=== PATIENT | male | born 1955 | race Caucasian/White ===

== ENCOUNTER 2017-08-28 05:40 | Outpatient (CLI) | payer BC, MEDICARE ==
[~2017-08-28] VITALS: Ht 185.4 cm; Wt 98.0 kg
[2017-08-28] MEDS ORDERED: CITA20TA7 PO (09:36)
[2017-08-28] MEDS ORDERED: ONDA8TAB6 PO (09:36)
[2017-08-28] MEDS ORDERED: BUPR100T15 PO (09:36)
[2017-08-28] MEDS ORDERED: MV-M1TAB20 PO (09:36)
[2017-08-28] MEDS ORDERED: CYAN1TAB13 PO (09:36)
[2017-08-28] MEDS ORDERED: MORP15TA PO (09:36)
[2017-08-28] MEDS ORDERED: OMEP20TA7 PO (09:36)
[2017-08-28] MEDS ORDERED: CARV3.12 PO (09:36)
[2017-08-28] MEDS ORDERED: POLY119P5 PO (09:36)
[2017-08-28] MEDS ORDERED: OXC10TCR PO (09:36)
[2017-08-28] MEDS ORDERED: PROC5TAB52 PO (09:36)
[2017-08-28] MEDS ORDERED: ORPH100T PO (09:36)
== END 2017-08-28 09:41 ==
LOC: PREOP 05:40
PROVIDERS: ATTEND Surgery
DX: Z01.818 Encounter for other preprocedural examination (principal); C34.90 Malignant neoplasm of unspecified part of unspecified bronchus or lung

== ENCOUNTER 2017-08-29 09:29 | Day surgery (SDC) | payer BC, MEDICARE ==
[~2017-08-29] VITALS: Ht 185.4 cm; Wt 98.0 kg
[~2017-08-29 09:29] MED LIST: BUPR100T15 PO; CARV3.12 PO; CITA20TA7 PO; CYAN1TAB13 PO; MORP15TA PO; MV-M1TAB20 PO; OMEP20TA7 PO; ONDA8TAB6 PO; ORPH100T PO; OXC10TCR PO; POLY119P5 PO; PROC5TAB52 PO
--- OUTSIDE RECORDS SUMMARY | 2017-08-29 09:33 | XMS REPORT ---
Author Author Laura Ramsay [facility] Address [address] [place], [place] [id number] Care Team Providers Care Asp Developer Name Role Phone Laura Ramsay PCP Laura Ramsay PreferredProvider Allergies and Adverse Reactions Name Reaction Notes Tenormin Pravachol Zocor Crestor [place] 3 Plan of Treatment Not available. Medications Active Name Start Date Estimated Completion Date SIG Comments bupropion HCl 100 mg oral tablet extended release take 1 tablet (100 mg ) by oral route 2 times per day naproxen 500 mg oral tablet take 1 tablet by oral route 2 times a day prn citalopram 20 mg oral tablet take 1 tablet (20 mg) by oral route once daily Folbee 2.5-25-1 mg oral tablet take 1 tablet by oral route once daily Stool Softener 100 mg oral capsule take 2 capsules (200 mg) by oral route once daily at bedtime as needed orphenadrine citrate 100 mg oral tablet extended release take 1 tablet by oral route daily Coreg 3.125 mg oral tablet take 1 tablet by oral route 2 times a day as needed omeprazole 20 mg oral capsule,delayed release(DR/EC) take 1 capsule by oral route daily as needed gabapentin 600 mg oral tablet take 1 tablet by oral route As needed oxycodone 5 mg oral tablet 07/09/2017 07/23/2017 take 1 tablet (5 mg) by oral route every 6 hours as needed for pain Discontinued Name Start Date Discontinued Date SIG Comments orphenadrine citrate 100 mg oral tablet extended release 06/12/2017 take 1 tablet (100 mg) by oral route 2 times per day in the morning and evening aspirin 81 mg oral tablet,delayed release (DR/EC) 06/12/2017 omeprazole 40 mg oral capsule,delayed release(DR/EC) 06/12/2017 take 1 capsule (40 mg) by oral route 2 times per day before a meal carvedilol 12.5 mg oral tablet 06/12/2017 06/12/2017 take 1 tablet by oral route 2 times a day as needed gabapentin 600 mg oral tablet 06/12/2017 06/12/2017 take 1 tablet by oral route daily as needed hydrocodone-acetaminophen 5-325 mg oral tablet 07/08/2017 PRN Levaquin 500 mg oral tablet 06/27/2017 07/03/2017 take 1 tablet (500 mg) by oral route once daily for 7 days OxyContin 10 mg oral tablet,oral only,ext.rel.12 hr 07/08/2017 07/09/2017 take 1 tablet (10 mg) by oral route every 12 hours for 15 days Problem List Description Status Onset Hyperlipidemia Active Hypertension Active Major Depression (Recurrent) Active Neuropathy Active Gastroesophageal reflux disease (GERD) Active Adenofibromatous hypertrophy of prostate Active 06/29/2016 Vital Signs Date Time BP-Sys(mm[Hg] BP-Marilynn(mm[Hg]) HR(bpm) RR(rpm) Temp WT HT HC BMI BSA BMI Percentile O2 Sat(%) 07/08/2017 4:55:00 PM 120 mmHg 80 mmHg 78 bpm 18 rpm 97.8 F 223.375 lbs 72 in 30.29 kg/m2 2.27 m2 98 % 07/03/2017 8:54:00 AM 122 mmHg 72 mmHg 68 bpm 18 rpm 98.1 F 219.125 lbs 72 in 29.7184 kg/m 2.247 m 98 % 06/27/2017 10:54:00 AM 116 mmHg 70 mmHg 84 bpm 18 rpm 98.5 F 219 lbs 72 in 29.70 kg/m2 2.25 m2 98 % 06/12/2017 2:58:00 PM 116 mmHg 72 mmHg 76 bpm 18 rpm 97.8 F 220.5 lbs 72 in 29.9049 kg/m 2.2541 m 97 % 06/29/2016 8:49:00 AM 118 mmHg 78 mmHg 73 bpm 18 rpm 97 F 215 lbs 72 in 29.16 kg/m2 2.23 m2 94 % 03/21/2016 9:55:00 AM 122 mmHg 76 mmHg 68 bpm 7 rpm 98.2 F 233 lbs 72 in 31.6002 kg/m 2.3171 m 98 % 11/03/2013 10:55:00 AM 110 mmHg 78 mmHg 61 bpm 16 rpm 97.1 F 223 lbs 72 in 30.24 kg/m2 2.27 m2 97 % Social History Name Description Comments Alcohol Never Caffeine Current every day Disabled Tobacco Current every day smoker cigerettes History of Procedures Date Ordered Description Order Status 06/06/2016 12:00 AM ASSAY OF PSA TOTAL Reviewed 06/29/2016 9:38 AM URINALYSIS AUTO W/O SCOPE Reviewed 09/10/2016 12:00 AM ASSAY OF PSA TOTAL Returned 06/27/2017 12:00 AM Rocephin 1 gram Injection Reviewed 07/03/2017 12:[address] THORAX W/DYE Returned 07/03/2017 12:[address] SOFT TISSUE NECK W/DYE Returned 07/03/2017 12:00 AM COMPLETE CBC W/AUTO DIFF WBC Returned 07/03/2017 12:00 AM COMPREHEN METABOLIC PANEL Returned 07/03/2017 12:00 AM THER/PROPH/DIAG INJ SC/IM Reviewed 07/03/2017 12:00 AM Rocephin 1 gram Injection Reviewed 07/03/2017 12:00 AM COLLECTION VENOUS BLOOD VENIPUNCTURE Reviewed 07/03/2017 12:00 AM US EXAM OF HEAD AND NECK Returned 07/03/2017 12:00 AM CHEST X-RAY 2VW FRONTAL&LATL Returned 07/09/2017 12:00 AM ASSAY OF PSA TOTAL Reviewed 11/03/2013 12:00 AM DIAGNOSTIC COLONOSCOPY Reviewed Results Summary Date and Description Results 06/27/2016 2:19 PM PSA TOTAL 7.810 ng/mL 06/29/2016 9:38 AM Clarity Ur CLEAR Color Ur --- Glucose Ur-sCnc -VE Bilirub Ur Ql Strip -VE Ketones Ur Ql Strip -VE Sp Gr Ur Qn 1015 Hgb Ur Ql Strip -VE pH Ur-LsCnc 5.0 Prot Ur Ql Strip -VE Urobilinogen Ur-mCnc -VE Nitrite Ur Ql Strip - VE WBC Est Ur Ql Strip -VE History Of Immunizations Not available. History of Past Illness Name Date of Onset Comments Hyperlipidemia Cardiomyopathy Post viral Major Depression (Recurrent) Gastroesophageal reflux disease (GERD) Degenerative joint disease Osteoarthritis Neuropathy SVT Glucose Intolerance Hypertension Adenofibromatous hypertrophy of prostate 06/29/2016 Acute esophagitis Nov 03 2013 11:12AM Colon Cancer Screening Nov 03 2013 11:12AM BPH (benign prostatic hypertrophy) Jun 06 2016 7:33AM Screening for prostate cancer Jun 06 2016 7:33AM Abnormal PSA Jun 29 2016 8:52AM Adenofibromatous hypertrophy of prostate Jun 29 2016 8:52AM Adenofibromatous hypertrophy of prostate Sep 10 2016 1:54PM Screening for prostate cancer Sep 10 2016 1:54PM Lymphadenopathy Jun 27 2017 10:57AM Soft tissue mass Jun 27 2017 10:57AM Pneumonia of left lower lobe due to infectious organism Jun 27 2017 10:57AM Hyperlipidemia, Mixed Jun 12 2017 3:01PM Osteoarthritis Jun 12 2017 3:01PM Hypertension, Benign Essential Jun 12 2017 3:01PM Gastroesophageal reflux disease (GERD) Jun 12 2017 3:01PM Mild episode of recurrent major depressive disorder Jun 12 2017 3:01PM Soft tissue mass Jul 03 2017 8:55AM Lymphadenopathy of left cervical region Jul 03 2017 8:55AM Pneumonia of left lower lobe due to infectious organism Jul 03 2017 8:55AM Lung nodule Jul 03 2017 5:52PM Soft tissue mass Jul 03 2017 5:52PM Abnormal CXR Jul 03 2017 5:52PM Lymphadenopathy Jul 03 2017 5:52PM Abnormal PSA Jul 09 2017 4:35PM Lymphadenopathy of head and neck Jul 08 2017 4:56PM Mass of soft tissue Jul 08 2017 4:56PM 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 Jul 08 2017 4:56PM Payers Insurance Name Company Name Plan Name Plan Number Policy Number Policy Group Number [facility] Date [id number] N/A Medicare RHC Medicare RHC [id number] N/A Medicare Part A Medicare - Lab/Xray [id number] N/A Medicare Part B Medicare Secondary [id number] N/A History of Encounters Visit Date Visit Type Provider 07/08/2017 Office visit Laura Ramsay SKILL TRAINING PROGRAM COORDINATOR 07/03/2017 Office visit Laura Ramsay SKILL TRAINING PROGRAM COORDINATOR 06/27/2017 Office visit Laura Ramsay SKILL TRAINING PROGRAM COORDINATOR 06/12/2017 Office visit Laura Ramsay SKILL TRAINING PROGRAM COORDINATOR 02/11/2017 [facility] Bishop Nino MD 02/11/2017 [facility] Tho Thornton MD 02/10/2017 [facility] Bishop Nino MD 06/29/2016 Office visit Roberta Jones MD 04/09/2016 [facility] Roberta Jones MD 03/21/2016 Office visit Roberta Jones MD 09/18/2015 [facility] Bishop Nino MD 02/08/2015 [facility] Bishop Nino MD 11/05/2013 [facility] Sebastian Keys MD 11/03/2013 Office visit Sebastian Keys MD 10/22/2013 [facility] Bishop Nino MD 08/24/2009 Laboratory Anne Lew MD
--- OUTSIDE RECORDS SUMMARY | 2017-08-29 09:33 | XMS REPORT ---
Author Author Laura Ramsay [facility] Address [address] [place], [place] [id number] Care Team Providers Care Livestock Nutrition Territory Manager Name Role Phone Laura Ramsay PCP Laura Ramsay PreferredProvider Allergies and Adverse Reactions Name Reaction Notes Tenormin Pravachol Zocor Crestor [place] 3 Plan of Treatment Planned Activity Comments Planned Date Planned Time Plan/Goal PSA TOTAL 09/10/2016 12:00 AM PSA TOTAL 07/09/2017 12:00 AM Medications Active Name Start Date Estimated Completion [...] (DR/EC) 06/12/2017 omeprazole 40 mg oral capsule,delayed release(/EC) 06/12/2017 take 1 capsule (40 mg) by [...] 9:38 AM URINALYSIS AUTO W/O SCOPE Reviewed 06/27/2017 12:00 AM Rocephin 1 gram Injection [...] 12:00 AM CHEST X-RAY 2VW FRONTAL&LATL Returned 11/03/2013 12:00 AM DIAGNOSTIC COLONOSCOPY Reviewed Results [...] 5:52PM Abnormal PSA Jul 09 2017 4:35PM Payers Insurance Name Company Name Plan Name Plan Number Policy Number Policy Group Number [facility] Date [id number] Medicare RHC Medicare RHC [id number] N/A Medicare Part A Medicare - Lab/Xray [id number] N/A Medicare Part B Medicare Secondary [id number] N/A History of Encounters Visit Date Visit Type Provider 07/08/2017 Office visit Laura GeovanyCharles Ramsay FLAKING ROLL OPERATOR 07/03/2017 Office visit Laura ArmentaCharles Ramsay FLAKING ROLL OPERATOR 06/27/2017 Office visit Laura ArmentaCharles Ramsay FLAKING ROLL OPERATOR 06/12/2017 Office visit Laura ArmentaCharles Ramsay FLAKING ROLL OPERATOR 02/11/2017 [facility] Bishop Nino MD 02/11/2017 [facility] Tho Thornton MD 02/10/2017 [facility] Bishop Nino MD 06/29/2016 Office visit Roberta Jones MD 04/09/2016 [facility] Roberta Jones MD 03/21/2016 Office visit Roberta Jones MD 09/18/2015 [facility] Bishop Nino MD 02/08/2015 [facility] Bishop Nino MD 11/05/2013 [facility] Sebastian Keys MD 11/03/2013 Office visit Sebastian Keys MD 10/22/2013 [facility] Bishop Nino MD 08/24/2009 Laboratory Anne Lew MD
--- OUTSIDE RECORDS SUMMARY | 2017-08-29 09:33 | XMS REPORT ---
Author Author Roberta Jones Organization [facility] Address [address] [facility] [address] [place], [place] [id number] Care Team Providers Care Pm Head Cook Name Role Phone Roberta Jones PCP Unavailable Allergies and Adverse Reactions Name Reaction Notes Tenormin Pravachol Zocor Crestor [place] 3 Plan of Treatment Planned Activity Comments Planned Date Planned Time Plan/Goal PSA TOTAL 06/06/2016 12:00 AM Medications Active Name Start Date Estimated Completion Date SIG Comments carvedilol 12.5 mg oral tablet take 0.5 tablet by oral route 2 times a day orphenadrine citrate 100 mg oral tablet extended release take 1 tablet ( 100 mg) by oral route 2 times per day in the morning and evening gabapentin 600 mg oral tablet take 1 tablet by oral route daily bupropion HCl 100 mg oral tablet extended [...] route once daily at bedtime as needed aspirin 81 mg oral tablet,delayed release (DR/EC) omeprazole 40 mg oral capsule,delayed release(DR/EC) take 1 capsule (40 mg) by oral route 2 times per day before a meal Problem List Description Status Onset Hyperlipidemia Active Hypertension Active Major Depression (Recurrent) Active Neuropathy Active Gastroesophageal reflux disease (GERD) Active Vital Signs Date Time BP-Sys(mm[Hg] BP-Marilynn(mm[Hg]) HR(bpm) RR(rpm) Temp WT HT HC BMI BSA BMI Percentile O2 Sat(%) 03/21/2016 9:55:00 AM 122 mmHg 76 mmHg 68 bpm 7 rpm 98.2 F 233 lbs 72 in 31.60 kg/m2 2.32 m2 98 % 11/03/2013 10:55:00 AM 110 mmHg 78 mmHg 61 bpm 16 rpm 97.1 F 223 lbs 72 in 30.2439 kg/m 2.2668 m 97 % Social History Name Description Comments Tobacco Current every day smoker History of Procedures Date Ordered Description Order Status 11/03/2013 12:00 AM DIAGNOSTIC COLONOSCOPY Reviewed Results Summary Not available. History Of Immunizations Not available. History of Past Illness Name Date of Onset Comments Hyperlipidemia Cardiomyopathy Post viral Major Depression (Recurrent) Gastroesophageal reflux disease (GERD) Degenerative joint disease Osteoarthritis Neuropathy SVT Glucose Intolerance Hypertension Acute esophagitis Nov 03 2013 11:12AM Colon Cancer Screening Nov 03 2013 11:12AM BPH (benign prostatic hypertrophy) Jun 06 2016 7:33AM Screening for prostate cancer Jun 06 2016 7:33AM Payers Insurance Name Company Name Plan Name Plan Number Policy Number Policy Group Number [id number] Medicare Part B Medicare Secondary [id number] N/A History of Encounters Visit Date Visit Type Provider 04/09/2016 [facility] Roberta Jones MD 03/21/2016 Office visit Roberta Jones MD 09/18/2015 [facility] Bishop Nino MD 02/08/2015 [facility] Bishop Nino MD 11/05/2013 [facility] Sebastian Keys MD 11/03/2013 Office visit Sebastian Keys MD 10/22/2013 [facility] Bishop Nino MD 08/24/2009 Laboratory Anne Lew MD
--- OUTSIDE RECORDS SUMMARY | 2017-08-29 09:33 | XMS REPORT ---
Author Author Roberta Jones Organization [facility] Address [address] [place], [place] [id number] Care Team Providers Care Teletypesetter Name Role Phone Roberta Jones PCP Unavailable Allergies and Adverse Reactions Name Reaction Notes Tenormin Pravachol Zocor Crestor [place] 3 Plan of Treatment Not available. Medications [...] Order Status 11/03/2013 12:00 AM DIAGNOSTIC COLONOSCOPY Returned Results Summary Not available. History Of Immunizations Not available. History of Past Illness Name Date of Onset Comments Hyperlipidemia Cardiomyopathy Post viral Major Depression (Recurrent) Gastroesophageal reflux disease (GERD) Degenerative joint disease Osteoarthritis Neuropathy SVT Glucose Intolerance Hypertension Acute esophagitis Nov 03 2013 11:12AM Colon Cancer Screening Nov 03 2013 11:12AM Payers Insurance Name Company Name Plan Name Plan Number Policy Number Policy Group Number [facility] Date [id number] N/A Medicare Part B Medicare Secondary [id number] N/A History of Encounters Visit Date Visit Type Provider 03/21/2016 Office visit Roberta Jones MD 09/18/2015 [facility] Bishop Nino MD 02/08/2015 [facility] Bishop Nino MD 11/05/2013 [facility] Sebastian Keys MD 11/03/2013 Office visit Sebastian Keys MD 10/22/2013 [facility] Bishop Nino MD 08/24/2009 Laboratory Anne Lew MD
--- OUTSIDE RECORDS SUMMARY | 2017-08-29 09:34 | XMS REPORT ---
Author Author Laura Ramsay [facility] Address [address] [place], [place] [id number] Care Team Providers Care Title Closer Name Role Phone Laura Ramsay PCP Laura Ramsay PreferredProvider Allergies and Adverse Reactions Name Reaction Notes Tenormin Pravachol Zocor Crestor [place] 3 Plan of Treatment Planned Activity Comments Planned Date Planned Time Plan/Goal PSA TOTAL 09/10/2016 12:00 AM Medications Active Name Start Date [...] 1 tablet by oral route As needed hydrocodone-acetaminophen 5-325 mg oral tablet PRN Levaquin 500 mg oral tablet 06/27/2017 take 1 tablet (500 mg) by oral route once daily for 7 days Discontinued Name Start Date Discontinued Date SIG [...] tablet by oral route daily as needed Problem List Description Status Onset Hyperlipidemia Active Hypertension Active Major Depression (Recurrent) Active Neuropathy Active Gastroesophageal reflux disease (GERD) Active Adenofibromatous hypertrophy of prostate Active 06/29/2016 Vital Signs Date Time BP-Sys(mm[Hg] BP-Marilynn(mm[Hg]) HR(bpm) RR(rpm) Temp WT HT HC BMI BSA BMI Percentile O2 Sat(%) 06/27/2017 10:54:00 AM 116 mmHg 70 mmHg [...] 12:00 AM Rocephin 1 gram Injection Reviewed 11/03/2013 12:00 AM DIAGNOSTIC COLONOSCOPY Reviewed [...] major depressive disorder Jun 12 2017 3:01PM Payers Insurance Name Company Name Plan Name Plan Number Policy Number Policy Group Number [facility] Date [id number] N/A Medicare RHC Medicare RHC [id number] N/A Medicare Part A Medicare - Lab/Xray [id number] N/A Medicare Part B Medicare Secondary [id number] N/A History of Encounters Visit Date Visit Type Provider 06/27/2017 Office visit Laura Ramsay ASSISTANT OFFICE MANAGER 06/12/2017 Office visit Laura Ramsay ASSISTANT OFFICE MANAGER 02/11/2017 [facility] Bishop Nino MD 02/11/2017 [facility] Tho Thornton MD 02/10/2017 [facility] Bishop Nino MD 06/29/2016 Office visit Roberta Jones MD 04/09/2016 [facility] Roberta Jones MD 03/21/2016 Office visit Roberta Jones MD 09/18/2015 Hospital Bishop Nino MD 02/08/2015 [facility] Bishop Nino MD 11/05/2013 [facility] Sebastian Keys MD 11/03/2013 Office visit Sebastian Keys MD 10/22/2013 [facility] Bishop Nino MD 08/24/2009 Laboratory Anne Lew MD
--- OUTSIDE RECORDS SUMMARY | 2017-08-29 09:34 | XMS REPORT ---
Author Author Laura Ramsay [facility] Address [address] [place], [place] [id number] Care Team Providers Care Diesel Retrofit Installer Name Role Phone Laura Ramsay PCP Laura Ramsay PreferredProvider Allergies and Adverse Reactions Name Reaction Notes Tenormin Pravachol Zocor Crestor [place] 3 Plan of Treatment Planned Activity Comments Planned Date Planned Time Plan/Goal PSA TOTAL 09/10/2016 12:00 AM US SOFT TISSUES HEAD AND NECK 07/03/2017 12:[address] CHEST W/CONTRAST 07/03/2017 12:[address] NECK SOFT TISSUE W/CONTRAST 07/03/2017 12:00 AM Medications Active Name Start Date [...] needed hydrocodone-acetaminophen 5-325 mg oral tablet PRN Discontinued Name Start Date Discontinued Date SIG [...] tablet by oral route daily as needed Levaquin 500 mg oral tablet 06/27/2017 07/03/2017 take 1 tablet (500 mg) by oral route once daily for 7 days Problem List Description Status Onset Hyperlipidemia Active Hypertension Active Major Depression (Recurrent) Active Neuropathy Active Gastroesophageal reflux disease (GERD) Active Adenofibromatous hypertrophy of prostate Active 06/29/2016 Vital Signs Date Time BP-Sys(mm[Hg] BP-Marilynn(mm[Hg]) HR(bpm) RR(rpm) Temp WT HT HC BMI BSA BMI Percentile O2 Sat(%) 07/03/2017 8:54:00 AM 122 mmHg 72 mmHg 68 bpm 18 rpm 98.1 F 219.125 lbs 72 in 29.72 kg/m2 2.25 m2 98 % 06/27/2017 10:54:00 AM 116 mmHg 70 mmHg 84 bpm 18 rpm 98.5 F 219 lbs 72 in 29.7014 kg/m 2.2464 m 98 % 06/12/2017 2:58:00 PM 116 mmHg 72 mmHg 76 bpm 18 rpm 97.8 F 220.5 lbs 72 in 29.90 kg/m2 2.25 m2 97 % 06/29/2016 8:49:00 AM 118 mmHg 78 mmHg 73 bpm 18 rpm 97 F 215 lbs 72 in 29.1589 kg/m 2.2258 m 94 % 03/21/2016 9:55:00 AM 122 mmHg [...] 1 gram Injection Reviewed 07/03/2017 12:00 AM COMPLETE CBC W/AUTO DIFF WBC Returned 07/03/2017 12:00 AM COMPREHEN METABOLIC PANEL Returned 07/03/2017 12:00 AM THER/PROPH/DIAG INJ SC/IM Reviewed 07/03/2017 12:00 AM Rocephin 1 gram Injection Reviewed 07/03/2017 12:00 AM COLLECTION VENOUS BLOOD VENIPUNCTURE Reviewed 07/03/2017 12:00 AM CHEST X-RAY 2VW FRONTAL&LATL [...] 2017 5:52PM Lymphadenopathy Jul 03 2017 5:52PM Payers Insurance Name Company Name Plan Name Plan Number Policy Number Policy Group Number Start Date BCBS [facility] [id number] N/A Medicare RHC Medicare RHC [id number] N/A Medicare Part A Medicare - Lab/Xray [id number] N/A Medicare Part B Medicare Secondary [id number] N/A History of Encounters Visit Date Visit Type Provider 07/03/2017 Office visit Laura Ramsay SPA COORDINATOR 06/27/2017 Office visit Laura Ramsay SPA COORDINATOR 06/12/2017 Office visit Laura Ramsay SPA COORDINATOR 02/11/2017 [facility] Bishop Nino MD 02/11/2017 [facility] Tho Thornton MD 02/10/2017 [facility] Bishop Nino MD 06/29/2016 Office visit Roberta Jones MD 04/09/2016 [facility] Roberta Jones MD 03/21/2016 Office visit Roberta Jones MD 09/18/2015 [facility] Bishop Nino MD 02/08/2015 [facility] Bishop Nino MD 11/05/2013 [facility] Sebastian Keys MD 11/03/2013 Office visit Sebastian Keys MD 10/22/2013 [facility] Bishop Nino MD 08/24/2009 Laboratory Anne Lew MD
--- OUTSIDE RECORDS SUMMARY | 2017-08-29 09:34 | XMS REPORT ---
Author Author Roberta Jones Organization [facility] Address [address] [place], [place] [phone] Care Team Providers Care Pad Making Machine Operator Name Role Phone Roberta Jones PCP Unavailable Allergies and Adverse Reactions Name Reaction Notes Tenormin Pravachol Zocor Crestor [place] 3 Plan of Treatment Not available. Medications [...] HC BMI BSA BMI Percentile O2 Sat(%) 06/29/2016 8:49:00 AM 118 mmHg 78 mmHg [...] 9:38 AM URINALYSIS AUTO W/O SCOPE Reviewed 11/03/2013 12:00 AM DIAGNOSTIC COLONOSCOPY Reviewed Results Summary Data and Description Results 06/27/2016 2:19 PM PSA [...] hypertrophy of prostate Jun 29 2016 8:52AM Payers Insurance Name Company Name Plan Name Plan Number Policy Number Policy Group Number [facility] Date [id number] N/A Medicare Part B Medicare Secondary [id number] N/A History of Encounters Visit Date Visit Type Provider 06/29/2016 Office visit Roberta Jones MD 04/09/2016 [facility] Roberta Jones MD 03/21/2016 Office visit Roberta Jones MD 09/18/2015 [facility] Bishop Nino MD 02/08/2015 [facility] Bishop Nino MD 11/05/2013 [facility] [place] MD 11/03/2013 Office visit Sebastian Keys MD 10/22/2013 [facility] Bishop Nino MD 08/24/2009 Laboratory Anne Lew MD
--- OUTSIDE RECORDS SUMMARY | 2017-08-29 09:35 | XMS REPORT ---
Author Author Laura Ramsay [facility] Address [address] [place], [place] [address] Care Team Providers Care Consumer Sales Representative Name Role Phone Laura Ramsay PCP Laura Ramsay PreferredProvider Allergies and Adverse Reactions Name Reaction Notes Tenormin Pravachol Zocor Crestor [place] 3 Plan of Treatment Planned Activity Comments [...] to infectious organism Jun 27 2017 10:57AM Payers Insurance Name Company Name Plan Name Plan Number Policy Number Policy Group Number [facility] Date [id number] Medicare RHC Medicare RHC [id number] N/A Medicare Part A Medicare - Lab/Xray [id number] N/A Medicare Part B Medicare Secondary [id number] N/A History of Encounters Visit Date Visit Type Provider 06/27/2017 Office visit Laura Ramsay PROPAGATION MANAGER 06/12/2017 Office visit Laura Ramsay PROPAGATION MANAGER 02/11/2017 [facility] Bishop Nino MD 02/11/2017 [facility] Tho Thornton MD 02/10/2017 [facility] Bishop Nino MD 06/29/2016 Office visit Roberta Jones MD 04/09/2016 [facility] Roberta Jones MD 03/21/2016 Office visit Roberta Jones MD 09/18/2015 [facility] Bishop Nino MD 02/08/2015 [facility] Bishop Nino MD 11/05/2013 [facility] Sebastian Keys MD 11/03/2013 Office visit Sebastian Keys MD 10/22/2013 [facility] Nino MD 08/24/2009 Laboratory Anne Lew MD
--- OUTSIDE RECORDS SUMMARY | 2017-08-29 09:35 | XMS REPORT ---
Author Author Laura Ramsay [facility] Address [address] [place], [place] [address] Care Team Providers Care E Commerce Retailer Name Role Phone Laura Ramsay PCP Laura Ramsay PreferredProvider Allergies and Adverse Reactions Name Reaction Notes Tenormin Pravachol Zocor Crestor [place] 3 Plan of Treatment Planned Activity Comments Planned Date Planned Time Plan/Goal PSA TOTAL 09/10/2016 12:[address] CHEST W/CONTRAST 07/03/2017 12:00 [...] Policy Group Number Start Date BCBS Bcbs [facility] [id number] N/A Medicare RHC Medicare RHC [id number] N/A Medicare Part A Medicare - Lab/Xray [id number] N/A Medicare Part B Medicare Secondary [id number] N/A History of Encounters Visit Date Visit Type Provider 07/03/2017 Office visit Laura Ramsay DETECTIVE AUTOMOBILE SECTION 06/27/2017 Office visit Laura Ramsay DETECTIVE AUTOMOBILE SECTION 06/12/2017 Office visit Laura Ramsay DETECTIVE AUTOMOBILE SECTION 02/11/2017 [facility] Bishop Nino MD 02/11/2017 [facility] Tho Thornton MD 02/10/2017 [facility] Bishop Nino MD 06/29/2016 Office visit Roberta Jones MD 04/09/2016 [facility] Roberta Jones MD 03/21/2016 Office visit Roberta Jones MD 09/18/2015 [facility] Bishop Nino MD 02/08/2015 [facility] Bishop Nino MD 11/05/2013 [facility] Sebastian Kyes MD 11/03/2013 Office visit Sebastian Keys MD 10/22/2013 [facility] Bishop Nino MD 08/24/2009 Laboratory Anne Lew MD
--- OUTSIDE RECORDS SUMMARY | 2017-08-29 09:35 | XMS REPORT | CCD ---
Author Author JOE GREY Unknown Address [address] [place] [address] Care Team Providers Care Instructional Technology Teacher Name Role Phone Roberta BURNETT MD Attphys Allergies Allergy Code Allergy Type Reaction Status CRESTOR 585369 Drug allergy FLU LIKE SYMPTOMS Active OMEGA 3 4301 Drug allergy FLU LIKE SYMPTOMS Active ZOCOR 244373 Drug allergy FLU LIKE SYMPTOMS Active TENORMIN 476260 Drug allergy FLU LIKE SYMPTOMS Active PRAVACHOL 687549 Drug allergy FLU LIKE SYMPTOMS Active Active Medications Medication Code Dose Units Frequency Route Modification Start Date/Time Aspirin 81MG Oral Tablet 695319 81 MILLIGRAMS DAILY ORAL 10/22/2013 12:49 Prescription Detail 81 MILLIGRAMS ORAL DAILY Baclofen 20MG Oral Tablet 923672 20 MILLIGRAMS FOUR TIMES A DAY NEEDED ORAL 10/22/2013 12:49 Prescription Detail 20 MILLIGRAMS ORAL FOUR TIMES A DAY NEEDED Celexa 20MG Oral Tablet 534598 20 MILLIGRAMS DAILY ORAL 10/22/2013 12:49 Prescription Detail 20 MILLIGRAMS ORAL DAILY DULCOLAX 0 1 TABLET TWO TIMES A DAY ORAL 10/22/2013 12:49 Prescription Detail 1 TABLET ORAL TWO TIMES A DAY Folbee 1MG-2.5MG-25MG Oral Tablet 974003 1 EACH DAILY ORAL 10/22/2013 12:49 Prescription Detail 1 EACH ORAL DAILY Naproxen 500MG Oral Tablet 755306 500 MILLIGRAMS TWICE DAILY NEEDED ORAL 10/22/2013 12:49 Prescription Detail 500 MILLIGRAMS ORAL TWICE DAILY NEEDED Nitrostat 0.4MG Sublingual Tablet 217340 0.4 MILLIGRAMS EVERY 5 MINUTES PRN CHEST PAIN SUBLINGUAL 2013 12:49 Prescription Detail 0.4 MILLIGRAMS SUBLINGUAL EVERY 5 MINUTES PRN CHEST PAIN Orphenadrine Citrate 100MG Oral Tablet 137861 100 MILLIGRAMS TWO TIMES A DAY NEEDED ORAL 2013 12:49 Prescription Detail 100 MILLIGRAMS ORAL TWO TIMES A DAY NEEDED STOOL SOFTNER 0 1 TABLET DAILY ORAL 10/22/2013 12:49 Prescription Detail 1 TABLET ORAL DAILY Wellbutrin 100MG Oral Tablet 145801 100 MILLIGRAMS TWO TIMES A DAY ORAL 10/22/2013 12:49 Prescription Detail 100 MILLIGRAMS ORAL TWO TIMES A DAY L-Lysine 500MG Oral Tablet 347600 2 TABLET NEEDED DAILY ORAL 10/22/2013 12:48 Prescription Detail 2 TABLET ORAL NEEDED DAILY Problems Problem Code Start Date Resolved Date Status CHEST PAIN, RULE OUT ACUTE MYOCARDIAL INFARCTION 47906 Active Procedures Procedure Code Procedure Type Date Cystourethroscopy (separate procedure) 68465 CPT 2015 Results Unknown or Not Available. Function Status Unknown or Not Available. History of Immunizations Unknown or Not Available. Plan of Treatment Unknown or Not Available. Social History Smoking Status Code Start Date End Date Current every day smoker [id number] Vital Signs Unknown or Not Available. Function Status Unknown or Not Available. Goals Unknown or Not Available. ASSESSMENTS Unknown or Not Available. Health Concerns Section Unknown or Not Available.
--- OUTSIDE RECORDS SUMMARY | 2017-08-29 09:35 | XMS REPORT ---
Author Author Roberta Jones Organization [facility] Address [address] [place], [place] [address] Care Team Providers Care Core Layer Machine Operator Name Role Phone Roberta Jones PCP Unavailable Allergies and Adverse Reactions Name Reaction Notes Tenormin Pravachol Zocor Crestor [place] 3 Plan of Treatment Planned Activity Comments [...] for prostate cancer Sep 10 2016 1:54PM Payers Insurance Name Company Name Plan Name Plan Number Policy Number Policy Group Number [id number] N/A Medicare Part B Medicare Secondary [id number] N/A History of Encounters Visit Date Visit Type Provider 06/29/2016 Office visit Roberta Jones MD 04/09/2016 Hospital Roberta Jones MD 03/21/2016 Office visit Roberta Jones MD 09/18/2015 [facility] Bishop Nino MD 02/08/2015 [facility] Bishop Nino MD 11/05/2013 [facility] Sebastian Keys MD 11/03/2013 Office visit Sebastian Keys MD 10/22/2013 [facility] Bishop Nino MD 08/24/2009 Laboratory Anne Lew MD
[2017-08-29] MEDS: LACTATED RINGERS 1,000 ML IV PRN ×2 (09:50→12:20)
[2017-08-29] MEDS ORDERED: ceFAZolin 2 GM IV Premixed 50 ML IV ONE (10:00)
[2017-08-29 10:04] VITALS: BP 131/81
[2017-08-29] MEDS ORDERED: ceFAZolin 2 GM IV Premixed 50 ML ONE (10:20)
[2017-08-29] MEDS ORDERED: FAMOTIDINE 20MG/2ML IV (PEPCID) IV ONE (10:30)
[2017-08-29] MEDS ORDERED: CATHETER FLUSH 10 ML SYR IV PRN (10:30)
--- NOTE | 2017-08-29 10:59 | Progress Note-Pre Operative ---
Pre-Operative Progress Note H&P Reviewed The H&P was reviewed, patient examined and no changes noted. 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
[2017-08-29] MEDS ORDERED: proPOfol 200 MG/20 ML (DIPRIVAN) VIAL IV ONE ×2 (11:07→12:17)
[2017-08-29] MEDS ORDERED: LIDOCAINE PF 2% 5 ML (XYLOCAINE) VIAL ONE (11:07)
[2017-08-29] MEDS ORDERED: MIDAZOLAM 2 MG/2 ML (VERSED) VIAL ONE ×2 (11:08→11:46)
[2017-08-29] MEDS ORDERED: BUPIVACAINE 0.5% 30 ML (SENSORCAINE) VIAL ONE (11:17)
[2017-08-29] MEDS ORDERED: LIDOCAINE 1% INJ 20 ML (XYLOCAINE) VIAL ONE (11:18)
[2017-08-29] MEDS ORDERED: 0.9% SODIUM CHLORIDE PF INJ 20 ML VIAL ONE (11:19)
[2017-08-29] MEDS ORDERED: HEParin (CENTRAL IV FLUSH) 500 UNIT/5 ML SYR ONE (11:19)
[2017-08-29] MEDS ORDERED: fentaNYL INJECTION 100 MCG/2 ML AMP ONE (12:03)
[2017-08-29] MEDS ORDERED: morphine INJ 10 MG/ML 1ML (SYR OR VIAL) IVP PRN (12:45)
--- NOTE | 2017-08-29 12:57 | Progress Note-Post Operative ---
Post-Operative Progess Note Surgeon (s)/Food Preparer (s) Surgeon VIVI GALE DO Food Preparer: na Pre-Operative Diagnosis squamous cell carcinoma left lung Post-Operative Diagnosis same Procedure & Operative Findings Date of Procedure 08/29/17 Procedure Performed/Findings right ij ultrasound guided port placement Anesthesia Type mac c local Estimated Blood Loss Estimated blood loss (mL): minimal Specimens/Packing Specimens Removed na VIVI GALE DO Aug 29, 2017 12:57
--- NOTE | 2017-08-29 12:59 | Discharge Inst-Simple/Standard ---
Discharge Inst-Standard Patient Instructions/Follow Up Plan of Care/Instructions/FU: 2 weeks Nicolasa Activity as Tolerated: No Discharge Diet: Regular Diet Other Inst to Patient Follow up Appt: Make appointment for 2 week. Instructions: No lifting greater than 10 pounds. No strenuous activity. May shower in 24 hours, no tub bath or soaking. Use incentive spirometer at home as directed. No Smoking Skin/Wound Care: May remove bandages in 24 hours. You need to leave the glue on it will fall off on its own. Symptoms to Report: Appetite Changes, Extremity Discoloration, Numbness/Tingling, Swelling Increased , Bleeding Excessive, Eyesight Changes, Pain Increased, Urine Color Change, Constipation(Persistent), Fever over 101 degree F, Pain/Pressure in chest, Urinating Difficulty, Cough Up/Vomit Blood, Heart Beat Irreg/Pounding, Pain/ Pressure in jaw, Vaginal Bleeding Increase, Cramps in feet or legs, Lightheadedness, Pain/Pressure in shoulder, Diarrhea(Persistent), Memory Changes Suddenly, Questions/Concerns, Weight gain consecutive days, Dizziness/ Fainting, Nausea/Vomiting, Shortness of Breath, Weight gain over 2 pounds If questions or concerns contact your physician Or seek help at emergency department. VIVI GALE DO Aug 29, 2017 12:59
[2017-08-29 13:00] VITALS: BP 118/81
[2017-08-29 13:30] VITALS: BP 129/86
--- NOTE | 2017-08-29 13:40 | Diagnostic Imaging Report ---
CLINICAL INDICATION: Postop Groshong placement. EXAM: Portable chest x-ray, upright view. COMPARISON: None. FINDINGS: A Groshong catheter tip is seen in the distal superior vena cava region in good position. There is no evidence of pneumothorax. There is mild patchy airspace disease involving the left mid lung field, left lung base, and right lung base which may represent atelectasis or infiltrate. There is no pleural effusion. Pulmonary vasculature and cardiac silhouette are within normal limits. Bones show no significant abnormality. IMPRESSION: 1: Groshong catheter seen overlying the right chest with tip in the distal superior vena cava. There is no pneumothorax. 2: There is bibasilar atelectasis versus infiltrate (left side more than the right). Dictated by: Dictated on workstation # [id number]
--- NOTE | 2017-08-29 13:55 | Anesthesia-General Post-Op ---
MAC Patient Condition Mental Status/LOC: Same as Preop Cardiovascular: Satisfactory Nausea/Vomiting: Absent Respiratory: Satisfactory Pain: Controlled Complications: Absent Post Op Complications Complications None Follow Up Care/Instructions Patient Instructions None needed. Anesthesiology Discharge Order Discharge Order Patient is doing well, no complaints, stable vital signs, no apparent adverse anesthesia problems. No complications reported per nursing. LISA JUDD CRNA Aug 29, 2017 13:55
[2017-08-29 14:05] VITALS: BP 129/86
--- NOTE | 2017-08-29 15:23 | OPERATIVE REPORT ---
DATE OF SERVICE: 08/29/2017 PREOPERATIVE DIAGNOSIS: Squamous cell carcinoma of the left lung. POSTOPERATIVE DIAGNOSIS: Squamous cell carcinoma of the left lung. PROCEDURE: Right internal jugular vein ultrasound-guided port placement. SURGEON: Vivi Baldwin DO ANESTHESIA: MAC with local. ESTIMATED BLOOD LOSS: Minimal. COMPLICATIONS: None. INDICATIONS: The patient is a 62-year-old male with squamous cell carcinoma of the left lung. He is going to undergo chemotherapy. He understands risks and benefits of procedure and wished to proceed with procedure. Consent was signed in the chart. DESCRIPTION OF PROCEDURE: The patient was taken to the operating suite. He was prepped and draped in sterile fashion. Surgical pause was performed which was used to locate the right internal jugular vein. A micro access needle was used to access the right internal jugular vein and micro access wire was inserted and fluoroscopy assured proper placement. The needle was removed. An 11 blade scalpel was used to make a small incision at the insertion site. A dilated micro access dilator sheath was advanced over the wire and the dilator and wire were removed. The normal access wire was inserted through the sheath and the sheath was then removed. This was then secured and fluoroscopy assured proper placement. A pocket was then created over the right chest after local anesthetic was infiltrated into the right chest and right neck for tunneling purposes. Once the pocket was created, the dilator sheath was then advanced over the guidewire. The dilator and the wire were removed. The Groshong catheter was inserted through the sheath and the sheath was then removed. The catheter was then tunneled from the insertion point down to the right chest pocket that was created. It was then secured to the port and placed within the chest pocket. The port was then accessed, kamar without difficulty and flushed without difficulty, first with saline and then with heparin. Subcutaneous tissues were then reapproximated using 3-0 Vicryl. The area was then washed and dried and SwiftSet was placed over the incisions. The patient tolerated procedure well without complications and taken to recovery room in stable condition. Chest x-ray pending. Job ID: [id number] DocumentID: [id number] Dictated Date: 08/29/2017 13:42:55 Thermal Cutter Hand Date: 08/29/2017 15:06:14 Dictated By: VIVI BALDWIN DO
--- NOTE | 2017-08-29 17:14 | Diagnostic Imaging Report ---
CLINICAL INDICATION: Patient post power port insertion. EXAM: Single limited intraprocedural x-ray of the chest. COMPARISON: None. FINDINGS AND IMPRESSION: Power port is seen overlying the right chest region with its distal portion not well delineated on this limited exam. Please see surgeon's report for more detail. Fluoroscopy was provided for surgeons and a total of 26.7 seconds and 499.43 mrad was provided. Dictated by: Dictated on workstation # [id number]
== END 2017-08-29 14:05 | disposition home or self-care (01) ==
LOC: SDC 09:29
PROVIDERS: ATTEND Surgery
DX: C34.12 Malignant neoplasm of upper lobe, left bronchus or lung (principal); I42.9 Cardiomyopathy, unspecified; K21.9 Gastro-esophageal reflux disease without esophagitis; Z79.899 Other long term (current) drug therapy; Z87.891 Personal history of nicotine dependence
CPT/HCPCS: 71045; 87081

== ENCOUNTER 2017-09-09 14:47 | Observation (INO) | payer BC, MEDICARE ==
[~2017-09-09] VITALS: Ht 182.9 cm; Wt 96.6 kg
[2017-09-09 21:05] VITALS: BP 129/77
--- OUTSIDE RECORDS SUMMARY | 2017-09-09 21:25 | XMS REPORT ---
Author Author Laura Ramsay [facility] Address [address] [place], [place] [address] Care Team Providers Care Stock Replenisher Name Role Phone Laura Ramsay PCP Laura Ramsay PreferredProvider Allergies and Adverse Reactions Name Reaction Notes Tenormin Pravachol Zocor Crestor [place] 3 Plan of Treatment Planned Activity Comments Planned Date Planned Time Plan/Goal BMP 09/09/2017 12:00 AM CBC W/ AUTO DIFF (RFLX MAN DIFF IF IND). 09/09/2017 12:00 AM Port-a-cath Flush 09/09/2017 12:00 AM Medications Active Name Start Date [...] (20 mg) by oral route once daily Stool Softener [...] 1 tablet by oral route As needed Folbee 2.5-25-1 mg oral tablet 08/19/2017 take 1 tablet by oral route once daily for 90 days Name Start Date Expiration Date SIG Comments oxycodone 5 mg oral tablet 07/09/2017 07/23/2017 [...] Reviewed 07/03/2017 12:[address] THORAX W/DYE Reviewed 07/03/2017 12:[address] SOFT TISSUE NECK W/DYE Reviewed 07/03/2017 12:00 AM COMPLETE CBC W/AUTO DIFF WBC Reviewed 07/03/2017 12:00 AM COMPREHEN METABOLIC PANEL Reviewed 07/03/2017 12:00 AM THER/PROPH/DIAG INJ SC/IM Reviewed 07/03/2017 12:00 AM Rocephin 1 gram Injection Reviewed 07/03/2017 12:00 AM COLLECTION VENOUS BLOOD VENIPUNCTURE Reviewed 07/03/2017 12:00 AM US EXAM OF HEAD AND NECK Reviewed 07/03/2017 12:00 AM CHEST X-RAY 2VW FRONTAL&LATL Reviewed 07/09/2017 12:00 AM ASSAY OF PSA TOTAL Reviewed 09/09/2017 12:00 AM ROUTINE VENIPUNCTURE Reviewed 11/03/2013 12:00 AM DIAGNOSTIC COLONOSCOPY Reviewed [...] VE WBC Est Ur Ql Strip -VE 07/03/2017 9:04 AM GLUCOSE 98.0 mg/dLSODIUM 138.0 mmol/LPOTASSIUM 4.40 mmol/ LCHLORIDE 105.0 mmol/LCO2 26.0 mmol/LBUN 17.0 mg/dLCREATININE 0.90 mg/dLSGOT/ AST 24.0 IU/LSGPT/ALT 24.0 IU/LALK PHOS 81.0 IU/LTOTAL PROTEIN 6.70 g/dLALBUMIN 4.10 g/dLTOTAL BILI 0.50 mg/dLCALCIUM 9.20 mg/dLAGE 62 GFR NonAA 86 GFR AA 104 eGFR >60 mL/min/1.73meGFR AA* >60 WBC 8.2 RBC 5.41 HGB 16.90 g/dLHCT 50.10 % MCV 93.0 fLMCH 31.20 pgMCHC 33.70 g/dLRDW SD 46 RDW CV 13.50 %MPV 8.80 fLPLT 247 NRBC# 0.00 NRBC% 0.0 %NEUT 66.30 %%LYMP 23.10 %%MONO 8.50 %%EOS 1.50 %%BASO 0.40 %#NEUT 5.41 #LYMP 1.88 #MONO 0.69 #EOS 0.12 #BASO 0.03 MANUAL DIFF NOT IND History Of Immunizations Not available. History of [...] metastatic to mediastinum Jul 08 2017 4:56PM Adenocarcinoma of bronchus, unspecified laterality Sep 09 2017 9:13AM Payers Insurance Name Company Name Plan Name Plan Number Policy Number Policy Group Number Start Date [facility]BS [facility]bs [id number] N/A Medicare RHC Medicare RHC [id number] N/A Medicare Part A Medicare - Lab/Xray [id number] N/A Medicare Part B Medicare Secondary [id number] N/A History of Encounters Visit Date Visit Type Provider 09/09/2017 Laboratory Laura Ramsay PRECAST CONCRETE IRONWORKER 07/08/2017 Office visit Laura Ramsay PRECAST CONCRETE IRONWORKER 07/03/2017 Office visit Laura Ramsay PRECAST CONCRETE IRONWORKER 06/27/2017 Office visit Laura Ramsay PRECAST CONCRETE IRONWORKER 06/12/2017 Office visit Laura Ramsay PRECAST CONCRETE IRONWORKER 02/11/2017 [facility] Bishop Nino MD 02/11/2017 [facility] Tho Thornton MD 02/10/2017 [facility] Bishop Nino MD 06/29/2016 Office visit Roberta Jones MD 04/09/2016 Hospital Roberta Jones MD 03/21/2016 Office visit Roberta Jones MD 09/18/2015 Hospital Bishop Nino MD 02/08/2015 Hospital Bishop Nino MD 11/05/2013 [facility] Sebastian Keys MD 11/03/2013 Office visit Sebastian Keys MD 10/22/2013 [facility] Bishop Nino MD 08/24/2009 Laboratory Anne Lew MD
--- OUTSIDE RECORDS SUMMARY | 2017-09-09 21:26 | XMS REPORT ---
Author Author Laura Ramsay [facility] Address [address] [place], [place] [id number] Care Team Providers Care Bsa Officer Name Role Phone Laura Ramsay PCP Laura Ramsay PreferredProvider Allergies and Adverse Reactions Name Reaction Notes Tenormin Pravachol Zocor Crestor [place] 3 Plan of Treatment Planned Activity Comments Planned Date Planned Time Plan/Goal BMP 09/09/2017 12:00 AM CBC W/ AUTO DIFF (RFLX MAN DIFF IF IND). 09/09/2017 12:00 AM Medications Active Name Start [...] Group Number Start Date BCBS Bcbs [facility] [id number] N/A Medicare RHC Medicare RHC [id number] N/A Medicare Part A Medicare - Lab/Xray [id number] N/A Medicare Part B Medicare Secondary [id number] N/A History of Encounters Visit Date Visit Type Provider 09/09/2017 Laboratory Laura Ramsay PLUMBING TECHNICIAN 07/08/2017 Office visit Laura Ramsay PLUMBING TECHNICIAN 07/03/2017 Office visit Laura Ramsay PLUMBING TECHNICIAN 06/27/2017 Office visit Laura Ramsay PLUMBING TECHNICIAN 06/12/2017 Office visit Laura Ramsay PLUMBING TECHNICIAN 02/11/2017 [facility] Bishop Nino MD 02/11/2017 [facility] Tho Thornton MD 02/10/2017 [facility] Bishop Nino MD 06/29/2016 Office visit Roberta Jones MD 04/09/2016 [facility] Roberta Jones MD 03/21/2016 Office visit Roberta Jones MD 09/18/2015 [facility] Bishop Nino MD 02/08/2015 [facility] Bishop Nino MD 11/05/2013 [facility] Sebastian Keys MD 11/03/2013 Office visit Sebastian Keys MD 10/22/2013 [facility] Bishop Nino MD 08/24/2009 Laboratory Anne Lew MD
--- OUTSIDE RECORDS SUMMARY | 2017-09-09 21:28 | XMS REPORT ---
Author Author Laura Ramsay [facility] Address [address] [place], [place] [address] Care Team Providers Care Purse Maker Name Role Phone Laura Ramsay PCP Laura Ramsay PreferredProvider Allergies and Adverse Reactions Name Reaction Notes Tenormin Pravachol Zocor Crestor [place] 3 Plan of Treatment Planned Activity Comments [...] Policy Group Number Start Date BCBS [facility]cbs [id number] N/A Medicare RHC Medicare RHC [id number] N/A Medicare Part A Medicare - Lab/Xray [id number] N/A Medicare Part B Medicare Secondary [id number] N/A History of Encounters Visit Date Visit Type Provider 09/09/2017 Laboratory Laura Ramsay DESIZING MACHINE OPERATOR HEAD END 07/08/2017 Office visit Laura Ramsay DESIZING MACHINE OPERATOR HEAD END 07/03/2017 Office visit Laura Ramsay DESIZING MACHINE OPERATOR HEAD END 06/27/2017 Office visit Laura Ramsay DESIZING MACHINE OPERATOR HEAD END 06/12/2017 Office visit Laura Ramsay DESIZING MACHINE OPERATOR HEAD END 02/11/2017 [facility] Bishop Nino MD 02/11/2017 [facility] Tho Thornton MD 02/10/2017 [facility] Bishop Nino MD 06/29/2016 Office visit Roberta Jones MD 04/09/2016 Hospital Roberta Jones MD 03/21/2016 Office visit Roberta Jones MD 09/18/2015 Hospital Bishop Nino MD 02/08/2015 Hospital Bishop Nino MD 11/05/2013 [facility] Sebastian Keys MD 11/03/2013 Office visit Sebastian Keys MD 10/22/2013 [facility] Bishop Nino MD 08/24/2009 Laboratory Anne Lew MD
--- OUTSIDE RECORDS SUMMARY | 2017-09-09 21:28 | XMS REPORT ---
Author Author Laura Ramsay [facility] Address [address] [place], [place] [address] Care Team Providers Care Propulsion Engineer Name Role Phone Laura Ramsay PCP Laura Ramsay PreferredProvider Allergies and Adverse Reactions Name Reaction Notes Tenormin Pravachol Zocor Crestor [place] 3 Plan of Treatment Not available. Medications [...] HC BMI BSA BMI Percentile O2 Sat(%) 09/09/2017 4:31:00 PM 132 mmHg 70 mmHg 88 bpm 18 rpm 98.2 F 218.5 lbs 72 in 29.63 kg/m2 2.24 m2 90 % 07/08/2017 4:55:00 PM 120 mmHg 80 mmHg 78 bpm 18 rpm 97.8 F 223.375 lbs 72 in 30.2948 kg/m 2.2687 m 98 % 07/03/2017 8:54:00 AM 122 mmHg [...] Reviewed 09/09/2017 12:00 AM ROUTINE VENIPUNCTURE Reviewed 09/09/2017 12:00 AM METABOLIC PANEL TOTAL CA Returned 09/09/2017 12:00 AM COMPLETE CBC W/AUTO DIFF WBC Returned 09/09/2017 12:00 AM IRRIGAJ IMPLNTD VENOUS ACCESS DRUG DELIVERY SYST Reviewed 11/03/2013 12:00 AM DIAGNOSTIC COLONOSCOPY Reviewed [...] bronchus, unspecified laterality Sep 09 2017 9:13AM Dyspnea Sep 09 2017 4:33PM Chest pain Sep 09 2017 4:33PM Carcinoma, lung, right Sep 09 2017 4:33PM Payers Insurance Name Company Name Plan Name Plan Number Policy Number Policy Group Number Start Date [id number] N/A Medicare RHC Medicare RHC [id number] N/A Medicare Part A Medicare - Lab/Xray [id number] N/A Medicare Part B Medicare Secondary [id number] N/A History of Encounters Visit Date Visit Type Provider 09/09/2017 Office visit Laura ArmentaCharles Ramsay HARBOR PATROL POLICE 09/09/2017 Laboratory Laura ArmentaCharles Ramsay HARBOR PATROL POLICE 07/08/2017 Office visit Laura ArmentaCharles Ramsay HARBOR PATROL POLICE 07/03/2017 Office visit Laura ArmentaCharles Ramsay HARBOR PATROL POLICE 06/27/2017 Office visit Laura Guerda Ramsay HARBOR PATROL POLICE 06/12/2017 Office visit Laura Guerda Ramsay HARBOR PATROL POLICE 02/11/2017 [facility] Bishop Nino MD 02/11/2017 [facility] Tho Thornton MD 02/10/2017 [facility] Bishop Nino MD 06/29/2016 Office visit Roberta Jones MD 04/09/2016 [facility] Roberta Jones MD 03/21/2016 Office visit Roberta Jones MD 09/18/2015 [facility] Bishop Nino MD 02/08/2015 [facility] Bishop Nino MD 11/05/2013 [facility] Sebastian Keys MD 11/03/2013 Office visit Sebastian Keys MD 10/22/2013 [facility] Bishop Nino MD 08/24/2009 Laboratory Anne Lew MD
--- OUTSIDE RECORDS SUMMARY | 2017-09-09 21:29 | XMS REPORT | Continuity of Care Document ---
Author Author [facility] Organization [facility] Address Unknown Phone Unavailable Allergies Active Description Code Type Severity Reaction Onset Reported/Identified Relationship to Patient Clinical Status Yes CRESTOR [id number] BRANDNAME N/A FLU LIKE SYMPTOMS Yes CRESTOR [id number] BRANDNAME N/A NIGHT RHOADES Yes NKDA - NO KNOWN DRUG ALLERGIES [id number] CLASS N/A N/A Yes OMEGA 3 [id number] BRANDNAME N/A FLU LIKE SYMPTOMS Yes OMEGA-3 FATTY ACIDS [id number] DRUG N/A N/A Yes PRAVACHOL [id number] BRANDNAME N/ A FLU LIKE SYMPTOMS Yes PRAVACHOL [id number] BRANDNAME N/ A NIGHTMARES Yes TENORMIN [id number] BRANDNAME N/ A FLU LIKE SYMPTOMS Yes TENORMIN [id number] BRANDNAME N/ A RASH Yes ZOCOR [id number] BRANDNAME N/A FLU LIKE SYMPTOMS Yes ZOCOR [id number] BRANDNAME N/A MYOPATHY Yes adhesive tape [id number] Drug Allergy Unknown N/A 08/28/2017 Yes atenolol [id number] Drug Allergy Unknown N/A 08/28/2017 Yes fish oil [id number] Drug Allergy Unknown N/A 08/28/2017 Yes pravastatin [id number] Drug Allergy Unknown N/A 08/28/2017 Yes rosuvastatin [id number] Drug Allergy Unknown N/A 08/28/2017 Yes simvastatin [id number] Drug Allergy Unknown N/A 08/28/2017 Medications There is no data. Problems Date Dx Coded Attending Type Code Diagnosis Diagnosed By 08/27/2017 IZABEL HERRERA MD Ot C34.12 MALIGNANT NEOPLASM OF UPPER LOBE, LEFT B 08/27/2017 IZABEL HERRERA MD Ot R13.10 DYSPHAGIA, UNSPECIFIED 08/27/2017 IZABEL HERRERA MD Ot R22.1 LOCALIZED SWELLING, MASS AND LUMP, NECK 08/27/2017 IZABEL HERRERA MD Ot Z87.891 PERSONAL HISTORY OF NICOTINE DEPENDENCE 08/28/2017 VIVI GALE DO Ot C34.90 MALIGNANT [facility] 08/28/2017 VIVI GALE DO Ot Z01.818 ENCOUNTER FOR OTHER PREPROCEDURAL EXAMIN 08/28/2017 IZABEL HERRERA MD Ot C34.12 MALIGNANT NEOPLASM OF UPPER LOBE, LEFT B 08/28/2017 IZABEL HERRERA MD Ot R13.10 DYSPHAGIA, UNSPECIFIED 08/28/2017 IZABEL HERRERA MD Ot R22.1 LOCALIZED SWELLING, MASS AND LUMP, NECK 08/28/2017 IZABEL HERRERA MD Ot Z87.891 PERSONAL HISTORY OF NICOTINE DEPENDENCE 08/29/2017 IZABEL HERRERA MD Ot C34.12 MALIGNANT NEOPLASM OF UPPER LOBE, LEFT B 08/29/2017 IZABEL HERRERA MD Ot R13.10 DYSPHAGIA, UNSPECIFIED 08/29/2017 IZABEL HERRERA MD Ot R22.1 LOCALIZED SWELLING, MASS AND LUMP, NECK 08/29/2017 IZABEL HERRERA MD Ot Z87.891 PERSONAL HISTORY OF NICOTINE DEPENDENCE 08/29/2017 VIVI GALE DO Ot C34.90 MALIGNANT [facility]LASM [facility] 08/29/2017 VIVI GALE DO Ot Z01.818 ENCOUNTER FOR OTHER PREPROCEDURAL EXAMIN 08/30/2017 VIVI GALE DO Ot C34.12 MALIGNANT NEOPLASM OF UPPER LOBE, LEFT B 08/30/2017 VIVI GALE DO Ot I42.9 CARDIOMYOPATHY, UNSPECIFIED 08/30/2017 VIVI GALE DO Ot K21.9 GASTRO-ESOPHAGEAL REFLUX DISEASE WITHOUT 08/30/2017 VIVI GALE DO Ot Z79.899 OTHER SHELTER (CURRENT) DRUG THERAPY 08/30/2017 VIVI GALE DO Ot Z87.891 PERSONAL HISTORY OF NICOTINE DEPENDENCE 09/02/2017 IZABEL HERRERA MD Ot C34.12 MALIGNANT NEOPLASM OF UPPER LOBE, LEFT B 09/02/2017 IZABEL HERRERA MD Ot R13.10 DYSPHAGIA, UNSPECIFIED 09/02/2017 IZABEL HERRERA MD Ot R22.1 LOCALIZED SWELLING, MASS AND LUMP, NECK 09/02/2017 IZABEL HERRERA MD Ot Z87.891 PERSONAL HISTORY OF NICOTINE DEPENDENCE Procedures There is no data. Results Test Result Range Methicillin resistant Staphylococcus aureus (MRSA) screening culture - 09:45 Methicillin resistant Staphylococcus aureus (MRSA) screening culture NEG NRG Encounters ACCT No. Visit Date/Time Discharge Status Pt. Type Provider Facility Loc./Unit Complaint [id number] 07/08/2017 17:52:47 07/08/2017 23:59:59 CLS Outpatient Alethea Ramsay [id number] 07/03/2017 09:49:57 07/03/2017 23:59:59 CLS Outpatient Alethea Ramsay [id number] 06/27/2017 11:38:46 06/27/2017 23:59:59 CLS Outpatient Alethea Ramsay [id number] 06/12/2017 15:43:10 06/12/2017 23:59:59 CLS Outpatient Alethea Ramsay [id number] 04/30/2017 13:57:48 04/30/2017 23:59:59 CLS Outpatient Bishop Nino [id number] 04/25/2017 09:36:36 04/25/2017 23:59:59 CLS Outpatient Bishop Nino [id number] 03/19/2017 11:46:04 03/19/2017 23:59:59 CLS Outpatient Donovan Betancur [id number] 06/29/2016 09:38:01 06/29/2016 23:59:59 CLS Outpatient Karen, V S [id number] 04/18/2016 16:37:29 04/18/2016 23:59:59 CLS Outpatient Karen, V S [id number] 03/21/2016 10:34:00 03/21/2016 23:59:59 CLS Outpatient Karen, V S [id number] 04/29/2015 11:07:39 04/29/2015 23:59:59 CLS Outpatient Bishop Nino [id number] 11/11/2013 05:21:47 11/11/2013 23:59:59 CLS Outpatient Bishop Nino [id number] 11/09/2013 10:22:14 11/09/2013 23:59:59 CLS Outpatient Sebastian Keys [id number] 11/03/2013 11:47:08 11/03/2013 23:59:59 CLS Outpatient Sebastian Keys [id number] 07/04/2017 07:58:48 Document Registration [id number] 07/03/2017 15:35:23 Document Registration [id number] 07/03/2017 09:33:31 Document Registration [id number] 02/10/2017 22:10:38 Document Registration [id number] 02/10/2017 22:04:24 Document Registration [id number] 09/03/2017 08:49:00 09/03/2017 23:59:59 CLS Outpatient IZABEL HERRERA MD [facility] ONC [id number] 08/29/2017 09:29:00 08/29/2017 14:05:00 DIS Outpatient VIVI GALE DO [facility] SDC SCLC [id number] 08/28/2017 05:40:00 08/28/2017 09:41:00 DIS Outpatient VIVI GALE DO [facility] PREOP SCLC
[2017-09-09] MEDS ORDERED: RT-ALBUTEROL/IPRATROPIUM 3 ML (DUONEB) VIAL INH SCH (22:00)
[2017-09-09] MEDS ORDERED: PATIENT MAY USE OWN MEDS, ALL PO SCH (22:00)
[2017-09-09] MEDS ORDERED: ACETAMINOPHEN 500 MG TAB (TYLENOL) PO PRN (22:00)
[2017-09-09] MEDS ORDERED: RT-ALBUTEROL/IPRATROPIUM 3 ML (DUONEB) VIAL INH PRN (23:45)
[2017-09-10] VITALS: BP 134/75
[2017-09-10] MEDS: morphine INJ 4 MG/ML 1 ML (VIAL/SYRINGE) IVP PRN ×7 (00:48→22:48)
[2017-09-10 04:00] VITALS: BP 111/71
[2017-09-10 06:39] LABS: BASOPHILS % (AUTO) 0 % (0-10); EOSINOPHILS % (AUTO) 0 % (0-10); HEMATOCRIT 39 % (40-54); HEMOGLOBIN 13.3 G/DL (13.3-17.7); LYMPHOCYTES # (AUTO) 1.1 X 10^3 (1.0-4.0); LYMPHOCYTES % (AUTO) 22 % (12-44); MEAN CORPUSCULAR HEMOGLOBIN 31 PG (25-34); MEAN CORPUSCULAR HGB CONC 34 G/DL (32-36); MEAN CORPUSCULAR VOLUME 90 FL (80-99); MEAN PLATELET VOLUME 8.9 FL (7.4-10.4); MONOCYTES # (AUTO) 0.4 X 10^3 (0.0-1.0); MONOCYTES % (AUTO) 8 % (0-12); NEUTROPHILS # (AUTO) 3.4 X 10^3 (1.8-7.8); NEUTROPHILS % (AUTO) 70 % (42-75); PLATELET COUNT 152 10^3/uL (130-400); RED BLOOD COUNT 4.28 10^6/uL (4.35-5.85); WHITE BLOOD COUNT 4.9 10^3/uL (4.3-11.0)
[2017-09-10] MEDS: RT-ALBUTEROL/IPRATROPIUM 3 ML (DUONEB) VIAL INH SCH ×3 (07:36→14:45)
[2017-09-10 08:00] VITALS: BP 110/68
[2017-09-10] MEDS: APIXABAN 5 MG (ELIQUIS) TABLET PO SCH ×2 (08:11→20:01)
--- NOTE | 2017-09-10 10:12 | History & Physical-Hospitalist ---
History of Present Illness HPI/Chief Complaint Pt is a 62yoCM with a PMH of SCLC and cardiomyopathy who presented to the ER in [place] for SOB and chest pain. He states he had his port placed 2 weeks ago and was doing well until yesterday when he developed shortness of breath. He was seen by his PCP in [place] and was advised to get a CT of his chest. He was going to come here to [facility] to do it but his symptoms were worsening and he felt as if he couldn't breath so he went to the ER in [place]. There he was evaluated and CTA Chest was done reportedly showed bilateral PEs and he was transferred here. He continued to have severe pain with inspiration last night and was finally made comfortable with oral Oxycodone IR and IV Morphine for breakthrough pain. At home he takes Oxycontin for baseline pain control and morphine prn. He does not take the morphine often because it causes constipation. His last BM was 3 days ago. He has not history of PEs or DVTs. He otherwise was feeling well prior to this. He is currently in the middle of a cycle of chemo with his last treatment on 09/04. He follows with Dr Bardales for his cancer treatment. Source: patient Date Seen 09/10/17 Time Seen by Provider: 09:10 Attending Physician Lukasz Escalona MD PCP No,Local Physician Referring Physician Date of Admission Sep 09, 2017 at 21:21 Home Medications & Allergies Home Medications Reviewed patient Home Medication Reconciliation performed by pharmacy medication reconciliations nuclear reactor technician and/or nursing. Patients Allergies have been reviewed. Allergies Allergies Coded Allergies adhesive tape (Verified Allergy, Unknown, 08/28/17) atenolol (Verified Allergy, Unknown, 08/28/17) fish oil (Verified Allergy, Unknown, 08/28/17) pravastatin (Verified Allergy, Unknown, 08/28/17) rosuvastatin (Verified Allergy, Unknown, 08/28/17) simvastatin (Verified Allergy, Unknown, 08/28/17) Past Skxqmes-Yykgmq-Cohamp Hx Past Med/Social Hx: Reviewed Nursing Past Med/Soc Hx Patient Social History Marrital Status: Alcohol Use: Denies Use Recreational Drug Use: No Smoking Status: Former Smoker Former Smoker, Quit: Aug 28, 2016 Type Used: Cigarettes Physical Abuse Screen: No Sexual Abuse: No Recent Foreign Travel: No Contact w/other who traveled: No Recent Hopitalizations: No Recent Infectious Disease Expo: No Seasonal Allergies Seasonal Allergies: No Past Medical History Surgeries: Tonsillectomy Cardiac: Cardiomyopathy Musculoskeletal: Arthritis Cancer: Lung Psychosocial: Depression History of Blood Disorders: No Adverse Reaction to Blood Gonzales: No Family History Heart Disease, Cancer Review of Systems Constitutional: No chills, No fever EENTM: No blurred vision, No double vision, No nose congestion, No throat pain Respiratory: No cough, dyspnea on exertion, short of breath Cardiovascular: chest pain, No edema, No palpitations Gastrointestinal: No abdominal pain, No constipation, No diarrhea, No nausea, No vomiting Genitourinary: No dysuria, No frequency Musculoskeletal: No joint pain, No muscle pain Skin: No lesions, No rash Psychiatric/Neurological: Denies Headache, Denies Numbness, Denies Tingling All Other Systems Reviewed Negative Unless Noted: Yes (Negative excepted noted.) Physical Exam Physical Exam Vital Signs Vital Signs - First Documented 09/09/17 09/09/17 21:05 23:32 Temp 98.1 Pulse 79 Resp 24 B/P (MAP) 129/77 (94) Pulse Ox 94 O2 Delivery Nasal Cannula O2 Flow Rate 3.00 FiO2 3 Capillary Refill : General Appearance: No Apparent Distress, WD/WN HEENT: PERRL/EOMI, Moist Mucous Membranes, No Scleral Icterus (L), No Scleral Icterus (R) Neck: Non Tender, Supple, No JVD, No Thyromegaly Respiratory: Lungs Clear, No Respiratory Distress Cardiovascular: Regular Rate, Rhythm, No Murmur Gastrointestinal: Normal Bowel Sounds, Non Tender, Soft Extremity: Normal Capillary Refill, No Calf Tenderness Neurologic/Psychiatric: Alert, Oriented x3, No Motor/Sensory Deficits, Normal Mood/Affect Skin: Normal Color, Warm/Dry Results Results/Procedures Labs Laboratory Tests 09/10/17 05:46 Patient resulted labs reviewed. Assessment/Plan Admission Diagnosis Bilateral PE Admission Status: Inpatient Order (span 2 midnights) Reason for Inpatient Admission: Bilateral PEs with hypoxia Diagnosis/Problems Diagnosis/Problems (1) Bilateral pulmonary embolism Status: Acute Assessment & Plan: Continue with Eliquis On oxygen- will get home O2 study Will consult Pulm I attempted to find CT from [place] but have been unable to locate If not in [facility] records will request records from there (2) Cardiomyopathy Status: Chronic Assessment & Plan: Unsure of etiology Will continue home meds Qualifiers: Cardiomyopathy type: unspecified Qualified Codes: I42.9 - Cardiomyopathy, unspecified (3) SCLC (small cell lung carcinoma) Assessment & Plan: Oncology consulted, appreciate recs (4) Chronic pain Assessment & Plan: Continue home medications Will provide Oxycodone IR for breakthrough pain with IV morphine for severe pain Qualifiers: Chronic pain type: due to neoplasm Qualified Codes: G89.3 - Neoplasm related pain (acute) (chronic) (5) Prophylactic measure Assessment & Plan: Butch saline lock Reg diet Clinical Quality Measures DVT/VTE Risk/Contraindication: Risk Factor Score Per Nursin RFS Level Per Nursing on Admit: 4+=Very High Contraindications-Pharm: Other *list below* Other: QUIANA LYON MD Sep 10, 2017 10:12
[2017-09-10] MEDS ORDERED: DOCUSATE SODIUM 100 MG (COLACE) CAP PO PRN (10:30)
[2017-09-10] MEDS ORDERED: SENNA W/DOCUSATE (SENOKOT S) TABLET PO PRN (10:30)
[2017-09-10] MEDS: oxyCODONE ER 10 MG (OxyCONTIN CR) TAB PO SCH ×2 (10:54→20:01)
[2017-09-10 12:00] VITALS: BP 119/72
[2017-09-10] MEDS ORDERED: PROC10TA PO (13:06)
[2017-09-10] MEDS ORDERED: BUPR100T8 PO (13:06)
[2017-09-10] MEDS ORDERED: OXYC10TA7 PO (13:06)
[2017-09-10] MEDS ORDERED: CHOL10007 PO (13:06)
[2017-09-10] MEDS ORDERED: PROCHLORPERAZINE 10 MG TAB (COMPAZINE) PO PRN (15:15)
[2017-09-10] MEDS ORDERED: CARVEDILOL 3.125 MG (COREG) TABLET PO PRN (15:15)
[2017-09-10] MEDS ORDERED: PANTOPRAZOLE 20 MG TABLET (PROTONIX) PO PRN (15:30)
[2017-09-10 16:17] VITALS: BP 120/68
[2017-09-10 20:41] VITALS: BP 120/65
[2017-09-11] VITALS: BP 104/51
[2017-09-11 05:00] VITALS: BP 114/71
[2017-09-11] MEDS: morphine INJ 4 MG/ML 1 ML (VIAL/SYRINGE) IVP PRN (05:53)
--- NOTE | 2017-09-11 06:01 | Pulmonary Consultation ---
History of Present Illness History of Present Illness Date of Consultation 09/11/17 05:55 Time Seen by Provider: 05:56 Date of Admission History of Present Illness 62yo with PMH of SCLC and cardiomyopathy transferred here from [facility] secondary to acute PE and severe CP. Pt presented to [facility] secondary to worsening SOB and CP. He had a mediport placed [address] Baldwin. Pt has been getting morphine IV, and Oxycodone for pain which has not helped much. He has no hx of PE/ DVT. Pt is being treated for cancer by Dr. Bardales. I am consulted for pulmonary management. Allergies and Home Medications Allergies Coded Allergies: adhesive tape (Verified Allergy, Unknown, 08/28/17) atenolol (Verified Allergy, Unknown, 08/28/17) fish oil (Verified Allergy, Unknown, 08/28/17) pravastatin (Verified Allergy, Unknown, 08/28/17) rosuvastatin (Verified Allergy, Unknown, 08/28/17) simvastatin (Verified Allergy, Unknown, 08/28/17) Home Medications Bupropion HCl 100 Mg Tablet.er, 100 MG PO DAILY, (Reported) Carvedilol 3.125 Mg Tablet, 3.125 MG PO DAILY PRN for irregular heartrate, ( Reported) Cholecalciferol (Vitamin D3) 1,000 Unit Capsule, 1,000 UNIT PO DAILY, (Reported) Citalopram Hydrobromide 20 Mg Tablet, 20 MG PO DAILY, (Reported) Cyanocobalamin/FA/Pyridoxine 1 Each Tablet, 1 TAB PO DAILY, (Reported) Morphine Sulfate 15 Mg Tablet, 15 MG PO Q2H PRN for PAIN-BREAKTHROUGH, (Reported ) Omeprazole 20 Mg Tablet.dr, 20 MG PO DAILY PRN for HEARTBURN, (Reported) Ondansetron HCl 8 Mg Tablet, 8 MG PO TID PRN for NAUSEA/VOMITING-1ST LINE, ( Reported) Orphenadrine Citrate 100 Mg Tablet.er, 100 MG PO DAILY, (Reported) Oxycodone HCl 10 Mg Tablet, 10 MG PO Q4H PRN for PAIN-SEVERE, (Reported) Polyethylene Glycol 3350 119 Gm Powder, 17 GM PO DAILY, (Reported) Prochlorperazine Maleate 10 Mg Tablet, 10 MG PO Q6H PRN for NAUSEA/VOMITING-4TH LINE, (Reported) Past Wwbnnik-Tdzsls-Duyzry Hx Patient Social History Alcohol Use: Denies Use Recreational Drug Use: No Smoking Status: Former Smoker Type Used: Cigarettes Former Smoker, Quit: Aug 28, 2016 Recent Foreign Travel: No Contact w/Someone Who Travel: No Recent Infectious Disease Expo: No Recent Hopitalizations: No Seasonal Allergies Seasonal Allergies: No Surgeries History of Surgeries: Yes (hand sx, Port Placement) Surgeries: Tonsillectomy Respiratory History of Respiratory Disorde: Yes (lung cancer) Cardiovascular History of Cardiac Disorders: Yes Cardiac Disorders: Cardiomyopathy Neurological History of Neurological Disord: No Gastrointestinal History of Gastrointestinal Di: No Musculoskeletal History of Musculoskeletal Dis: Yes Musculoskeletal Disorders: Arthritis Endocrine History of Endocrine Disorders: No Cancer History of Cancer: Yes Cancer: Lung Psychosocial History of Psychiatric Problem: Yes Behavioral Health Disorders: Depression Integumentary History of Skin or Integumenta: No Blood Transfusions History of Blood Disorders: No Adverse Reaction to a Blood Tr: No Family Medical History Significant Family History: Heart Disease, Cancer Review of Systems Time Seen by Provider: 06:28 Constitutional: Fever, Sweats, Weakness, Malaise, No: Chills Eyes: No: Pain, Vision change, Conjunctivae inflammation, Eyelid inflammation, Other, Redness Respiratory: Shortness of breath, SOB with excertion, Pleuritic Pain, No: Wheezing, Hemoptysis Cardiovascular: Paroxysmal Noc. Dyspnea, Lt Headedness Gastrointestinal: Constipation, No: Nausea, Vomiting, Abdominal Pain, Diarrhea , Melena, Hematochezia, Other Genitourinary: No Dysuria, No Frequency, No Incontinence, No Hematuria, No Retention, No Other Musculoskeletal: No: other, neck pain, shoulder pain, arm pain, back pain, hand pain, leg pain, foot pain Neurological: Weakness Exam Exam Vital Signs Date Time Temp Pulse Resp B/P (MAP) Pulse Ox O2 Delivery O2 Flow Rate FiO2 09/11/17 05:00 98.2 88 22 114/71 (85) 93 Nasal Cannula 3.00 09/11/17 00:00 99.2 88 19 104/51 (68) 91 Nasal Cannula 3.00 09/10/17 21:00 Nasal Cannula 3.00 09/10/17 20:41 99.2 89 20 120/65 (83) 94 Nasal Cannula 3.00 09/10/17 16:17 100.1 84 20 120/68 (85) 92 Nasal Cannula 3.00 09/10/17 14:53 92 3.00 09/10/17 12:00 97.8 77 20 119/72 (88) 94 Nasal Cannula 3.00 09/10/17 09:00 Nasal Cannula 2.00 09/10/17 08:00 97.9 82 20 110/68 (82) 93 Nasal Cannula 3.00 I & O 09/11/17 07:00 Intake Total 3100 ml Balance 3100 ml General Appearance: No Apparent Distress, WD/WN, Anxious HEENT: PERRL/EOMI, Moist Mucous Membranes, No Scleral Icterus (L), No Scleral Icterus (R) Neck: Non Tender, Supple, No JVD, No Thyromegaly Respiratory: Lungs Clear, No Respiratory Distress Cardiovascular: Regular Rate, Rhythm, No Murmur Extremity: Normal Capillary Refill, No Calf Tenderness Neurologic/Psychiatric: Alert, Oriented x3, No Motor/Sensory Deficits, Normal Mood/Affect Skin: Normal Color, Warm/Dry Results Lab Laboratory Tests 09/10/17 05:46 Assessment/Plan Assessment/Plan Acute Bilateral PE -Continue Eliquis -Oxygen -Repeat labs and CXR Pleuritis- -Start Toradol -Lidoderm patch SOB secondary to PE Anxiety -Start Xanax hx of tobacco use -quit in 03/26 255 NELDA LANDIS DO Sep 11, 2017 06:01
[2017-09-11 06:06] LABS: BASOPHILS % (AUTO) 0 % (0-10); EOSINOPHILS % (AUTO) 1 % (0-10); HEMATOCRIT 38 % (40-54); LYMPHOCYTES # (AUTO) 1.2 X 10^3 (1.0-4.0); LYMPHOCYTES % (AUTO) 29 % (12-44); MEAN CORPUSCULAR HEMOGLOBIN 31 PG (25-34); MEAN CORPUSCULAR HGB CONC 35 G/DL (32-36); MEAN CORPUSCULAR VOLUME 89 FL (80-99); MEAN PLATELET VOLUME 8.8 FL (7.4-10.4); MONOCYTES # (AUTO) 0.5 X 10^3 (0.0-1.0); MONOCYTES % (AUTO) 11 % (0-12); NEUTROPHILS # (AUTO) 2.5 X 10^3 (1.8-7.8); NEUTROPHILS % (AUTO) 59 % (42-75); PLATELET COUNT 158 10^3/uL (130-400); RED BLOOD COUNT 4.22 10^6/uL (4.35-5.85); RED CELL DISTRIBUTION WIDTH 13.4 % (10.0-14.5); WHITE BLOOD COUNT 4.3 10^3/uL (4.3-11.0)
[2017-09-11 06:30] LABS: ALANINE AMINOTRANSFERASE 28 U/L (0-55); ALBUMIN 3.7 GM/DL (3.2-4.5); ALKALINE PHOSPHATASE 117 U/L (40-136); BILIRUBIN,TOTAL 0.6 MG/DL (0.1-1.0); BUN/CREATININE RATIO 16; CALCIUM 8.8 MG/DL (8.5-10.1); CARBON DIOXIDE 25 MMOL/L (21-32); CHLORIDE 104 MMOL/L (98-107); CREATININE SERUM 0.74 MG/DL (0.60-1.30); GFR ESTIMATED > 60; GLUCOSE 102 MG/DL (70-105); MAGNESIUM 2.2 MG/DL (1.8-2.4); PHOSPHORUS 3.2 MG/DL (2.3-4.7); SODIUM 136 MMOL/L (135-145); TOTAL PROTEIN 6.2 GM/DL (6.4-8.2)
[2017-09-11] MEDS ORDERED: ALPRAZolam 0.5 MG (XANAX) TAB PO PRN (06:30)
[2017-09-11] MEDS: KETOROLAC 30 MG/ML VIAL IVP PRN (06:37)
[2017-09-11] MEDS: RT-ALBUTEROL/IPRATROPIUM 3 ML (DUONEB) VIAL INH SCH ×4 (07:15→19:22)
[2017-09-11 08:00] VITALS: BP 102/59
--- NOTE | 2017-09-11 08:02 | Diagnostic Imaging Report ---
PATIENT HISTORY: Shortness of air, history of lung cancer. TECHNIQUE: Single frontal view of the chest COMPARISON: 08/29/2017 FINDINGS: Lung volumes are mildly decreased when compared to the prior studies. Calcified lymph nodes are noted. There are bibasilar interstitial and linear opacities. These appear mildly increased when compared to 08/29/2017 no pleural effusion or pneumothorax is seen. The cardiac silhouette is stable in size. The right-sided Port-A-Cath is unchanged. IMPRESSION: 1. Mildly increased bibasilar pulmonary opacities, may represent atelectasis given the interval decrease in volume, although infiltrate is not excluded. Dictated by: Dictated on workstation # [id number]
[2017-09-11] MEDS ORDERED: oxyCODONE ER 10 MG (OxyCONTIN CR) TAB PO SCH (09:00)
[2017-09-11] MEDS ORDERED: NON-FORMULARY MEDICATION 1 EA EA (Orphenadrine Citrate 100 MG) PO SCH (09:00)
[2017-09-11] MEDS: LIDOCAINE (LIDODERM) 5% PATCH TOP SCH (09:38)
[2017-09-11] MEDS: oxyCODONE ER 20 MG (OxyCONTIN CR) TAB PO SCH ×2 (09:38→20:56)
[2017-09-11] MEDS: APIXABAN 5 MG (ELIQUIS) TABLET PO SCH ×2 (09:38→20:56)
[2017-09-11] MEDS: buPROPion SR 100 MG (WELLBUTRIN SR) TAB PO SCH (09:38)
[2017-09-11] MEDS ORDERED: APIX5TAB PO ×3 (10:48→10:58)
[2017-09-11] MEDS ORDERED: OXYC10TA7 PO (10:55)
--- NOTE | 2017-09-11 11:03 | Progress Note-Hospitalist ---
Subjective HPI/CC On Admission Date Seen by Provider: Sep 11, 2017 Time Seen by Provider: 10:59 Pt is a 62yoCM with a PMH of SCLC and cardiomyopathy who presented to the ER in [place] for SOB and chest pain. He states he had his port placed 2 weeks ago and was doing well until yesterday when he developed shortness of breath. He was seen by his PCP in [place] and was advised to get a CT of his chest. He was going to come here to [facility] to do it but his symptoms were worsening and he felt as if he couldn't breath so he went to the ER in [place]. There he was evaluated and CTA Chest was done reportedly showed bilateral PEs and he was transferred here. He continued to have severe pain with inspiration last night and was finally made comfortable with oral Oxycodone IR and IV Morphine for breakthrough pain. At home he takes Oxycontin for baseline pain control and morphine prn. He does not take the morphine often because it causes constipation. His last BM was 3 days ago. He has not history of PEs or DVTs. He otherwise was feeling well prior to this. He is currently in the middle of a cycle of chemo with his last treatment on 09/04. He follows with Dr Bardales for his cancer treatment. Subjective/Events-last exam Pt reports doing much better. Pain improved. Improved with Toradol. No other complaints or concerns. at bedside and concerned about cost of Eliquis. Requests sending Rx today to evaluate cost. Objective Exam Vital Signs Vital Signs Date Time Temp Pulse Resp B/P (MAP) Pulse Ox O2 Delivery O2 Flow Rate FiO2 09/09/17 21:05 98.1 79 24 129/77 (94) 94 Nasal Cannula 3.00 09/09/17 23:32 3 Capillary Refill : General Appearance: No Apparent Distress, WD/WN Respiratory: Lungs Clear, No Respiratory Distress Cardiovascular: Regular Rate, Rhythm, No Murmur Gastrointestinal: Normal Bowel Sounds, Soft Neurologic/Psychiatric: Alert, Oriented x3, Normal Mood/Affect Results/Procedures Lab Laboratory Tests 09/11/17 05:45 Patient resulted labs reviewed. Assessment/Plan Assessment and Plan Assess & Plan/Chief Complaint Bilateral PE Diagnosis/Problems Diagnosis/Problems (1) Bilateral pulmonary embolism Status: Acute Assessment & Plan: Continue with Eliquis Rx sent and coupon provided to help with costs On oxygen- requires 3lpm at rest per oxygen study Will consult Pulm, appreciate recs (2) Cardiomyopathy Status: Chronic Assessment & Plan: Unsure of etiology Will continue home meds Qualifiers: Cardiomyopathy type: unspecified Qualified Codes: I42.9 - Cardiomyopathy, unspecified (3) SCLC (small cell lung carcinoma) Assessment & Plan: Oncology consulted, appreciate recs (4) Chronic pain Assessment & Plan: Continue home medications Improved with Toradol, will continue Will write Rx for oxycodone so does not run out before next appt Qualifiers: Chronic pain type: due to neoplasm Qualified Codes: G89.3 - Neoplasm related pain (acute) (chronic) (5) Prophylactic measure Assessment & Plan: Eliquis saline lock Reg diet Clinical Quality Measures DVT/VTE Risk/Contraindication: Risk Factor Score Per Nursin RFS Level Per Nursing on Admit: 4+=Very High Contraindications-Pharm: Other *list below* Other: QUIANA LYON MD Sep 11, 2017 11:03
[2017-09-11] MEDS ORDERED: APIXABAN 5 MG (ELIQUIS) TABLET PO NR (11:15)
[2017-09-11 12:00] VITALS: BP 98/49
[2017-09-11 15:38] VITALS: BP 114/59
--- NOTE | 2017-09-11 18:08 | Consultation ---
History of Present Illness History of Present Illness Patient Consulted On(dominic/time) 09/11/17 18:02 Date Seen by Provider: Sep 11, 2017 Time Seen by Provider: 18:02 Reason for Visit: pulmonary embolism History of Present Illness Mr. Reed is a 62 yo male with extensive stage SCLC who who started receiving palliative carboplatin and etoposide since August 09. He completed cycle 2 from 09/02 to 09/04 without any significant difficulties. Two days ago, he experienced severe right sided chest pain at rest that was unrelieved with his usual opiate pain medications. He presented to [facility], whereupon he was diagnosed with bilateral PEs. He was transferred here per request and started on Eliquis. He continued to suffer significantly from chest pain until this morning when he was given toradol and a lidoderm patch. He is breathing better now and pain is much improved. He has no other complaints. Allergies and Home Medications Allergies Coded Allergies: adhesive tape (Verified Allergy, Unknown, 08/28/17) atenolol (Verified Allergy, Unknown, 08/28/17) fish oil (Verified Allergy, Unknown, 08/28/17) pravastatin (Verified Allergy, Unknown, 08/28/17) rosuvastatin (Verified Allergy, Unknown, 08/28/17) simvastatin (Verified Allergy, Unknown, 08/28/17) Home Medications Apixaban 5 Mg Tablet, 5 MG PO BID Prescribed by: QUIANA ACUNA on 09/11/17 1048 Apixaban 5 Mg Tablet, 10 MG PO BID 2 TABLETS TWICE DAILY X 7 DAYS Prescribed by: QUIANA ACUNA on 09/11/17 1058 Bupropion HCl 100 Mg Tablet.er, 100 MG PO DAILY, (Reported) Carvedilol 3.125 Mg Tablet, 3.125 MG PO DAILY PRN for irregular heartrate, ( Reported) Cholecalciferol (Vitamin D3) 1,000 Unit Capsule, 1,000 UNIT PO DAILY, (Reported) Citalopram Hydrobromide 20 Mg Tablet, 20 MG PO DAILY, (Reported) Cyanocobalamin/FA/Pyridoxine 1 Each Tablet, 1 TAB PO DAILY, (Reported) Morphine Sulfate 15 Mg Tablet, 15 MG PO Q2H PRN for PAIN-BREAKTHROUGH, (Reported ) Omeprazole 20 Mg Tablet.dr, 20 MG PO DAILY PRN for HEARTBURN, (Reported) Ondansetron HCl 8 Mg Tablet, 8 MG PO TID PRN for NAUSEA/VOMITING-1ST LINE, ( Reported) Orphenadrine Citrate 100 Mg Tablet.er, 100 MG PO DAILY, (Reported) Oxycodone HCl 10 Mg Tablet, 10 MG PO Q4H PRN for PAIN-SEVERE Prescribed by: QUIANA ACUNA on 09/11/17 1055 Polyethylene Glycol 3350 119 Gm Powder, 17 GM PO DAILY, (Reported) Prochlorperazine Maleate 10 Mg Tablet, 10 MG PO Q6H PRN for NAUSEA/VOMITING-4TH LINE, (Reported) Patient Home Medication List Home Medication List Reviewed: Yes Past Lnzdkvs-Ptuvvp-Vnbsaf Hx Patient Social History Alcohol Use: Denies Use Recreational Drug Use: No Smoking Status: Former Smoker Type Used: Cigarettes Former Smoker, Quit: Aug 28, 2016 Recent Foreign Travel: No Contact w/Someone Who Travel: No Recent Infectious Disease Expo: No Recent Hopitalizations: No Seasonal Allergies Seasonal Allergies: No Surgeries History of Surgeries: Yes (hand sx, Port Placement) Surgeries: Tonsillectomy Respiratory History of Respiratory Disorde: Yes (lung cancer) Cardiovascular History of Cardiac Disorders: Yes Cardiac Disorders: Cardiomyopathy Neurological History of Neurological Disord: No Gastrointestinal History of Gastrointestinal Di: No Musculoskeletal History of Musculoskeletal Dis: Yes Musculoskeletal Disorders: Arthritis Endocrine History of Endocrine Disorders: No Cancer History of Cancer: Yes Cancer: Lung Psychosocial History of Psychiatric Problem: Yes Behavioral Health Disorders: Depression Integumentary History of Skin or Integumenta: No Blood Transfusions History of Blood Disorders: No Adverse Reaction to a Blood Tr: No Family Medical History Significant Family History: Heart Disease, Cancer Review of Systems-General Constitutional: no symptoms reported EENTM: no symptoms reported Respiratory: see HPI Cardiovascular: see HPI Gastrointestinal: no symptoms reported Genitourinary: no symptoms reported Musculoskeletal: no symptoms reported Skin: no symptoms reported Psychiatric/Neurological: No Symptoms Reported Physical Exam-General Problems Physical Exam Vital Signs Vital Signs - First Documented 09/09/17 09/09/17 21:05 23:32 Temp 98.1 Pulse 79 Resp 24 B/P (MAP) 129/77 (94) Pulse Ox 94 O2 Delivery Nasal Cannula O2 Flow Rate 3.00 FiO2 3 Capillary Refill : General Appearance: WD/WN, no apparent distress Eyes: Bilateral Eye Normal Inspection, Bilateral Eye PERRL, Bilateral Eye EOMI HEENT: PERRL/EOMI, normal ENT inspection, pharynx normal Neck: non-tender, full range of motion, supple, normal inspection Respiratory: chest non-tender, lungs clear, normal breath sounds, respiratory distress (mild), accessory muscle use Cardiovascular: regular rate, rhythm, no edema, no murmur Gastrointestinal: normal bowel sounds, non tender, soft Back: normal inspection Extremities: normal range of motion, non-tender, normal inspection, no pedal edema, no calf tenderness Neurologic/Psychiatric: spring tester II-XII nml as tested, alert, oriented x 3 Skin: normal color, warm/dry Lymphatic: no adenopathy Assessment/Plan Assessment/Plan Admission Diagnosis/Plan 62 yo male with extensive stage SCLC admitted for management of hypoxic respiratory failure and uncontrolled pain secondary to pulmonary emboli. Dyspnea and chest pain are much improved. He is about a week after starting cycle 2 of chemotherapy and his blood counts are still stable. No additional intervention from an oncology perspective. I will see the patient in clinic after he is discharged. Clinical Quality Measures DVT/VTE Risk/Contraindication: Risk Factor Score Per Nursin RFS Level Per Nursing on Admit: 4+=Very High Contraindications-Pharm: Other *list below* Other: IZABEL WHEELER MD Sep 11, 2017 18:08
[2017-09-11 20:33] VITALS: BP 119/59
[2017-09-12] VITALS: BP 121/60
[2017-09-12 04:00] VITALS: BP 103/65
--- NOTE | 2017-09-12 06:34 | Pulmonary Progress Note ---
Subjective Time Seen by Provider: 06:33 Subjective/Events-last exam PT is doing better. Pain is more controlled. Exam Exam Vital Signs Date Time Temp Pulse Resp B/P (MAP) Pulse Ox O2 Delivery O2 Flow Rate FiO2 09/12/17 04:00 98.1 79 18 103/65 (78) 99 Nasal Cannula 3.00 09/12/17 00:00 98.5 86 20 121/60 (80) 93 Nasal Cannula 3.00 09/11/17 20:33 97.4 92 20 119/59 (79) 96 Nasal Cannula 3.00 09/11/17 19:22 88 Room Air 09/11/17 15:38 99.3 85 18 114/59 (77) 94 Nasal Cannula 3.00 09/11/17 14:43 92 Nasal Cannula 3.00 09/11/17 12:00 97.9 72 20 98/49 (65) 95 Nasal Cannula 3.00 09/11/17 11:00 95 Nasal Cannula 3.00 09/11/17 10:10 97.5 09/11/17 08:00 Nasal Cannula 3.00 09/11/17 08:00 97.5 78 20 102/59 (73) 93 Nasal Cannula 3.00 09/11/17 07:15 94 Nasal Cannula 3.00 I & O 09/12/17 07:00 Intake Total 650 ml Balance 650 ml General Appearance: No Apparent Distress, WD/WN HEENT: PERRL/EOMI, Moist Mucous Membranes, No Scleral Icterus (L), No Scleral Icterus (R) Neck: Non Tender, Supple, No JVD, No Thyromegaly Respiratory: Lungs Clear, No Respiratory Distress Cardiovascular: Regular Rate, Rhythm, No Murmur Gastrointestinal: normal bowel sounds, non tender, soft Extremity: Normal Capillary Refill, No Calf Tenderness Neurologic/Psychiatric: Alert, Oriented x3, Normal Mood/Affect Skin: Normal Color, Warm/Dry Results Lab Laboratory Tests 09/11/17 05:45 Assessment/Plan Assessment/Plan Acute Bilateral PE -Continue Eliquis -Oxygen Pleuritis- Toradol -Lidoderm patch SOB secondary to PE Anxiety -Xanax hx of tobacco use -quit in 03/26 232 NELDA LANDIS DO Sep 12, 2017 06:34
[2017-09-12] MEDS: RT-ALBUTEROL/IPRATROPIUM 3 ML (DUONEB) VIAL INH SCH ×2 (07:27→10:52)
[2017-09-12] MEDS ORDERED: LIDO700A45 TP (07:30)
[2017-09-12 08:00] VITALS: BP 115/64
[2017-09-12] MEDS: KETOROLAC 30 MG/ML VIAL IVP PRN (09:43)
[2017-09-12] MEDS: APIXABAN 5 MG (ELIQUIS) TABLET PO SCH (09:43)
[2017-09-12] MEDS: buPROPion SR 100 MG (WELLBUTRIN SR) TAB PO SCH (09:43)
[2017-09-12] MEDS: oxyCODONE ER 20 MG (OxyCONTIN CR) TAB PO SCH (09:43)
[2017-09-12] MEDS: LIDOCAINE (LIDODERM) 5% PATCH TOP SCH (09:44)
[2017-09-12 11:45] VITALS: BP 115/64
[2017-09-12] MEDS ORDERED: NON-FORMULARY MEDICATION 1 EA EA (Orphenadrine Citrate 100 MG) PO SCH ×2 (12:00→15:00)
--- NOTE | 2017-09-12 14:30 | Discharge Summary-Hospitalist ---
Diagnosis/Chief Complaint Date of Admission Sep 09, 2017 at 21:21 Date of Discharge Sep 12, 2017 at 11:45 Discharge Date: Sep 12, 2017 Admission Diagnosis Bilateral PE Discharge Diagnosis Bilateral PE (1) Bilateral pulmonary embolism Status: Acute Assessment & Plan: Continue with Eliquis- picked up yesterday On oxygen- requires 3lpm at rest per oxygen study Pulm consulted, appreciate recs (2) Cardiomyopathy Status: Chronic Assessment & Plan: Unsure of etiology Will continue home meds (3) SCLC (small cell lung carcinoma) Assessment & Plan: Oncology consulted, appreciate recs (4) Chronic pain Assessment & Plan: Continue home medications Improved with Toradol, will continue Will write Rx for oxycodone so does not run out before next appt (5) Prophylactic measure Assessment & Plan: Eliquis saline lock Reg diet Discharge Summary Procedures/Consulations Pulmonology Oncology Discharge Physical Exam Allergies: Coded Allergies: adhesive tape (Verified Allergy, Unknown, 08/28/17) atenolol (Verified Allergy, Unknown, 08/28/17) fish oil (Verified Allergy, Unknown, 08/28/17) pravastatin (Verified Allergy, Unknown, 08/28/17) rosuvastatin (Verified Allergy, Unknown, 08/28/17) simvastatin (Verified Allergy, Unknown, 08/28/17) Vitals & I&Os Vital Signs Date Time Temp Pulse Resp B/P (MAP) Pulse Ox O2 Delivery O2 Flow Rate FiO2 09/12/17 11:45 84 20 115/64 93 Nasal Cannula 3.00 09/12/17 08:00 98.6 09/09/17 23:32 3 General Appearance: Alert, Oriented X3 Respiratory: Clear to Auscultation Cardiovascular: Regular Rate Psych/Mental Status: Mental Status NL, Mood NL Hospital Course Pt is a 62yoCM with metastatic SCLC who was transferred here from [facility] for bilateral PE. He was having intractable pain on the night of admission and was requiring IV narcotics to control his pain. He was started on Toradol as well with drastic improvement. He was started on Eliquis for anticoagulation and advised to follow up with his oncologist for further anticoagulation. He was found to be hypoxic and require 3lpm at rest. This was arranged prior to DC and he was DC home in stable condition. He and his were comfortable with plan to discharge. Labs (last 24 hrs) Patient resulted labs reviewed. Imaging: Reviewed Imaging Report Discussion & Recommendations Discharge Planning: >30 minutes discharge planning Discharge Home Medications: Active Scripts Active Lidocaine 1 Each Adh..patch 1 Each TP DAILY Eliquis (Apixaban) 5 Mg Tablet 10 Mg PO BID 2 TABLETS TWICE DAILY X 7 DAYS Oxycodone HCl 10 Mg Tablet 10 Mg PO Q4H PRN Eliquis (Apixaban) 5 Mg Tablet 5 Mg PO BID Reported Bupropion HCl Sr (Bupropion HCl) 100 Mg Tablet.er 100 Mg PO DAILY Prochlorperazine Maleate 10 Mg Tablet 10 Mg PO Q6H PRN Vitamin D3 (Cholecalciferol (Vitamin D3)) 1,000 Unit Capsule 1,000 Unit PO DAILY Orphenadrine Citrate 100 Mg Tablet.er 100 Mg PO DAILY Omeprazole 20 Mg Tablet.dr 20 Mg PO DAILY PRN Morphine Sulfate 15 Mg Tablet 15 Mg PO Q2H PRN Citalopram HBr (Citalopram Hydrobromide) 20 Mg Tablet 20 Mg PO DAILY Zofran (Ondansetron HCl) 8 Mg Tablet 8 Mg PO TID PRN Miralax (Polyethylene Glycol 3350) 119 Gm Powder 17 Gm PO DAILY Coreg (Carvedilol) 3.125 Mg Tablet 3.125 Mg PO DAILY PRN Folbee Tablet (Cyanocobalamin/FA/Pyridoxine) 1 Each Tablet 1 Tab PO DAILY Instructions to patient/family Please see electronic discharge instructions given to patient. Clinical Quality Measures DVT/VTE Risk/Contraindication: Risk Factor Score Per Nursin RFS Level Per Nursing on Admit: 4+=Very High Contraindications-Pharm: Other *list below* Other: Coravin Copy Copies To 1: IZABEL HERRERA MD Problem Qualifiers (1) Cardiomyopathy: Cardiomyopathy type: unspecified Qualified Codes: I42.9 - Cardiomyopathy, unspecified (2) Chronic pain: Chronic pain type: due to neoplasm Qualified Codes: G89.3 - Neoplasm related pain (acute) (chronic) QUIANA ACUNA MD Sep 12, 2017 14:30
--- OUTSIDE RECORDS SUMMARY | 2017-09-12 14:58 | XMS REPORT | Continuity of Care Document ---
Author Author [facility] Organization [facility] Address Unknown Phone Unavailable Allergies Active Description Code Type Severity Reaction Onset Reported/Identified Relationship to Patient Clinical Status Yes CRESTOR [id number] BRANDNAME N/A FLU LIKE SYMPTOMS Yes CRESTOR [id number] BRANDNAME N/A NIGHT RHOADES Yes NKDA - NO KNOWN DRUG ALLERGIES [id number] CLASS N/A N/A Yes OMEGA 3 [id number] BRANDNAME N/A FLU LIKE SYMPTOMS Yes OMEGA-3 FATTY ACIDS [id number] DRUG N/A N/A Yes PRAVACHOL [id number] BRANDNAME N/ A FLU LIKE SYMPTOMS Yes PRAVACHOL [id number] BRANDNAME N/ A NIGHTMARES Yes TENORMIN [id number] BRANDNAME N/ A FLU LIKE SYMPTOMS Yes TENORMIN [id number] BRANDNAME N/ A RASH Yes ZOCOR [id number] BRANDNAME N/A FLU LIKE SYMPTOMS Yes ZOCOR [id number] BRANDNAME N/A MYOPATHY Yes adhesive tape [id number] Drug Allergy Unknown N/A 08/28/2017 Yes atenolol [id number] Drug Allergy Unknown N/A 08/28/2017 Yes fish oil [id number] Drug Allergy Unknown N/A 08/28/2017 Yes pravastatin [id number] Drug Allergy Unknown N/A 08/28/2017 Yes rosuvastatin [id number] Drug Allergy Unknown N/A 08/28/2017 Yes simvastatin [id number] Drug Allergy Unknown N/A 08/28/2017 Medications There [...] C34.90 MALIGNANT NEOPLASM OF UNSP PART OF UNSP 08/28/2017 GALE DO VIVI D Ot Z01.818 ENCOUNTER FOR OTHER PREPROCEDURAL EXAMIN 08/28/2017 IZABEL HERRERA MD Ot C34.12 MALIGNANT NEOPLASM OF UPPER LOBE, LEFT B 08/28/2017 IZABEL HERRERA MD Ot R13.10 DYSPHAGIA, UNSPECIFIED 08/28/2017 JAVIER ORTEGA, IZABEL Ot R22.1 LOCALIZED SWELLING, MASS AND LUMP, [...] Z87.891 PERSONAL HISTORY OF NICOTINE DEPENDENCE 08/29/2017 JUD GALE DOTT D Ot C34.90 MALIGNANT [facility]LASM OF [facility]SP [facility] 08/29/2017 JUD GALE DOTT D Ot Z01.818 ENCOUNTER FOR OTHER PREPROCEDURAL EXAMIN 08/29/2017 JUD GALE DOTT D Ot C34.12 MALIGNANT NEOPLASM OF UPPER LOBE, LEFT B 08/29/2017 JUD GALE DOTT D Ot I42.9 CARDIOMYOPATHY, UNSPECIFIED 08/29/2017 JUD GALE DOTT D Ot K21.9 GASTRO-ESOPHAGEAL REFLUX DISEASE WITHOUT 08/29/2017 JUD GALE DOTT D Ot Z79.899 OTHER PENITENTIARY (CURRENT) DRUG THERAPY 08/29/2017 SHAHLA DERAS VIVI D Ot Z87.891 PERSONAL HISTORY OF NICOTINE DEPENDENCE 08/30/2017 SHAHLA DERAS VIVI D Ot C34.12 MALIGNANT NEOPLASM OF UPPER LOBE, LEFT B 08/30/2017 JUD GALE DOTT D Ot I42.9 CARDIOMYOPATHY, UNSPECIFIED 08/30/2017 JUD GALE DOTT D Ot K21.9 GASTRO-ESOPHAGEAL REFLUX DISEASE WITHOUT 08/30/2017 JUD GALE DOTT D Ot Z79.899 OTHER PENITENTIARY (CURRENT) DRUG THERAPY 08/30/2017 JUD GALE DOTT D Ot Z87.891 PERSONAL HISTORY OF NICOTINE DEPENDENCE 09/02/2017 IZABEL HERRERA MD Ot C34.12 MALIGNANT NEOPLASM OF UPPER LOBE, LEFT B 09/02/2017 IZABEL HERRERA MD Ot R13.10 DYSPHAGIA, UNSPECIFIED 09/02/2017 IZABEL HERRERA MD Ot R22.1 LOCALIZED SWELLING, MASS AND LUMP, NECK 09/02/2017 IZABEL HERRERA MD Ot Z87.891 PERSONAL HISTORY OF NICOTINE DEPENDENCE 09/04/2017 VIVI GALE DO Ot C34.12 MALIGNANT NEOPLASM OF UPPER LOBE, LEFT B 09/04/2017 GALE DOVIVI Ot I42.9 CARDIOMYOPATHY, UNSPECIFIED 09/04/2017 GALE DOVIVI Ot K21.9 GASTRO-ESOPHAGEAL REFLUX DISEASE WITHOUT 09/04/2017 GALE DOVIVI Ot Z79.899 OTHER PENITENTIARY (CURRENT) DRUG THERAPY 09/04/2017 VIVI GALE DO Ot Z87.891 PERSONAL HISTORY OF NICOTINE DEPENDENCE 09/09/2017 IZABEL HERRERA MD Ot C34.12 MALIGNANT NEOPLASM OF UPPER LOBE, LEFT B 09/09/2017 IZABEL HERRERA MD Ot R13.10 DYSPHAGIA, UNSPECIFIED 09/09/2017 IZABEL HERRERA MD Ot R22.1 LOCALIZED SWELLING, MASS AND LUMP, NECK 09/09/2017 IZABEL HERRERA MD Ot Z87.891 PERSONAL HISTORY OF NICOTINE DEPENDENCE Procedures There is no data. Results Test Result Range Methicillin resistant Staphylococcus aureus (MRSA) screening culture - 09:45 Methicillin resistant Staphylococcus aureus (MRSA) screening culture NEG NRG Complete blood count (CBC) with automated white blood cell (WBC) differential - 09/10/17 05:46 Blood leukocytes automated count (number/volume) 4.9 10*3/uL 4.3-11.0 Blood erythrocytes automated count (number/volume) 4.28 10*6/uL 4.35-5.85 Venous blood hemoglobin measurement (mass/volume) 13.3 g/dL 13.3-17.7 Blood hematocrit (volume fraction) 39 % 40-54 Automated erythrocyte mean corpuscular volume 90 [foz_us] 80-99 Automated erythrocyte mean corpuscular hemoglobin (mass per erythrocyte) 31 pg 25-34 Automated erythrocyte mean corpuscular hemoglobin concentration measurement ( mass/volume) 34 g/dL 32-36 Automated erythrocyte distribution width ratio 14.0 % 10.0-14.5 Automated blood platelet count (count/volume) 152 10*3/uL 130-400 Automated blood platelet mean volume measurement 8.9 [foz_us] 7.4-10.4 Automated blood neutrophils/100 leukocytes 70 % 42-75 Automated blood lymphocytes/100 leukocytes 22 % 12-44 Blood monocytes/100 leukocytes 8 % 0-12 Automated blood eosinophils/100 leukocytes 0 % 0-10 Automated blood basophils/100 leukocytes 0 % 0-10 Blood neutrophils automated count (number/volume) 3.4 10*3 1.8-7.8 Blood lymphocytes automated count (number/volume) 1.1 10*3 1.0-4.0 Blood monocytes automated count (number/volume) 0.4 10*3 0.0-1.0 Automated eosinophil count 0.0 10*3/uL 0.0-0.3 Automated blood basophil count (count/volume) 0.0 10*3/uL 0.0-0.1 Complete blood count (CBC) with automated white blood cell (WBC) differential - 09/11/17 05:45 Blood leukocytes automated count (number/volume) 4.3 10*3/uL 4.3-11.0 Blood erythrocytes automated count (number/volume) 4.22 10*6/uL 4.35-5.85 Venous blood hemoglobin measurement (mass/volume) 13.0 g/dL 13.3-17.7 Blood hematocrit (volume fraction) 38 % 40-54 Automated erythrocyte mean corpuscular volume 89 [foz_us] 80-99 Automated erythrocyte mean corpuscular hemoglobin (mass per erythrocyte) 31 pg 25-34 Automated erythrocyte mean corpuscular hemoglobin concentration measurement ( mass/volume) 35 g/dL 32-36 Automated erythrocyte distribution width ratio 13.4 % 10.0-14.5 Automated blood platelet count (count/volume) 158 10*3/uL 130-400 Automated blood platelet mean volume measurement 8.8 [foz_us] 7.4-10.4 Automated blood neutrophils/100 leukocytes 59 % 42-75 Automated blood lymphocytes/100 leukocytes 29 % 12-44 Blood monocytes/100 leukocytes 11 % 0-12 Automated blood eosinophils/100 leukocytes 1 % 0-10 Automated blood basophils/100 leukocytes 0 % 0-10 Blood neutrophils automated count (number/volume) 2.5 10*3 1.8-7.8 Blood lymphocytes automated count (number/volume) 1.2 10*3 1.0-4.0 Blood monocytes automated count (number/volume) 0.5 10*3 0.0-1.0 Automated eosinophil count 0.0 10*3/uL 0.0-0.3 Automated blood basophil count (count/volume) 0.0 10*3/uL 0.0-0.1 Comprehensive metabolic panel - 09/11/17 05:45 Serum or plasma sodium measurement (moles/volume) 136 mmol/L 135-145 Serum or plasma potassium measurement (moles/volume) 4.0 mmol/L 3.6-5.0 Serum or plasma chloride measurement (moles/volume) 104 mmol/L 98-107 Carbon dioxide 25 mmol/L 21-32 Serum or plasma anion gap determination (moles/volume) 7 mmol/L 5-14 Serum or plasma urea nitrogen measurement (mass/volume) 12 mg/dL 7-18 Serum or plasma creatinine measurement (mass/volume) 0.74 mg/dL 0.60-1.30 Serum or plasma urea nitrogen/creatinine mass ratio 16 NRG Serum or plasma creatinine measurement with calculation of estimated glomerular filtration rate > NRG Serum or plasma glucose measurement (mass/volume) 102 mg/dL 70-105 Serum or plasma calcium measurement (mass/volume) 8.8 mg/dL 8.5-10.1 Serum or plasma total bilirubin measurement (mass/volume) 0.6 mg/dL 0.1-1.0 Serum or plasma alkaline phosphatase measurement (enzymatic activity/volume) 117 U/L 40-136 Serum or plasma aspartate aminotransferase measurement (enzymatic activity/ volume) 23 U/L 5-34 Serum or plasma alanine aminotransferase measurement (enzymatic activity/volume ) 28 U/L 0-55 Serum or plasma protein measurement (mass/volume) 6.2 g/dL 6.4-8.2 Serum or plasma albumin measurement (mass/volume) 3.7 g/dL 3.2-4.5 Serum or plasma phosphate measurement (mass/volume) - 09/11/17 05:45 Serum or plasma phosphate measurement (mass/volume) 3.2 mg/dL 2.3-4.7 Magnesium - 09/11/17 05:45 Magnesium 2.2 mg/dL 1.8-2.4 Serum or plasma lithium measurement (moles/volume) - 09/11/17 05:45 BNP level 41.5 pg/mL <100.0 Encounters ACCT No. Visit Date/Time Discharge Status Pt. Type Provider Facility Loc./Unit Complaint [id number] 07/08/2017 17:52:47 07/08/2017 23:59:59 CLS Outpatient Alethea Ramsay [id number] 07/03/2017 09:49:57 07/03/2017 23:59:59 CLS Outpatient Alethea Ramsay [id number] 06/27/2017 11:38:46 06/27/2017 23:59:59 VALENTE Outpatient Alethea Ramsay [id number] 06/12/2017 15:43:10 06/12/2017 23:59:59 CLS Outpatient Alethea Ramsay [id number] 04/30/2017 13:57:48 04/30/2017 23:59:59 CLS Outpatient Bishop Nino [id number] 04/25/2017 09:36:36 04/25/2017 23:59:59 CLS Outpatient Bishop Nino [id number] 03/19/2017 11:46:04 03/19/2017 23:59:59 CLS Outpatient Donovan Betancur [id number] 06/29/2016 09:38:01 06/29/2016 23:59:59 CLS Outpatient Karen, V S [id number] 04/18/2016 16:37:29 04/18/2016 23:59:59 CLS Outpatient Karen, V S [id number] 03/21/2016 10:34:00 03/21/2016 23:59:59 CLS Outpatient Karen, V S [id number] 04/29/2015 11:07:39 04/29/2015 23:59:59 CLS Outpatient Bishop Nino [id number] 11/11/2013 05:21:47 11/11/2013 23:59:59 CLS Outpatient Bishop Nino [id number] 11/09/2013 10:22:14 11/09/2013 23:59:59 CLS Outpatient Sebastian Keys [id number] 11/03/2013 11:47:08 11/03/2013 23:59:59 CLS Outpatient Sebastian Keys [id number] 09/09/2017 18:34:14 Document Registration [id number] 09/09/2017 17:14:27 Document Registration [id number] 09/09/2017 14:54:48 Document Registration [id number] 07/04/2017 07:58:48 Document Registration [id number] 07/03/2017 15:35:23 Document Registration [id number] 07/03/2017 09:33:31 Document Registration [id number] 02/10/2017 22:10:38 Document Registration [id number] 02/10/2017 22:04:24 Document Registration [id number] 09/04/2017 08:45:00 09/04/2017 23:59:59 CLS Outpatient IZABEL HERRERA MD [facility] ONC [id number] 08/29/2017 09:29:00 08/29/2017 14:05:00 DIS Outpatient VIVI GALE DO [facility] SDC SCLC [id number] 08/28/2017 05:40:00 08/28/2017 09:41:00 DIS Outpatient VIVI GALE DO [facility] PREOP SCLC [id number] 09/09/2017 21:21:00 ACT Inpatient VIVIANE ORTEGA, GUADALUPE Mazariegos [facility] 4TH ACUTE PE;LUNG CANCER
== END 2017-09-12 11:45 | disposition home or self-care (01) ==
LOC: EDSTATUS 14:47 → UNDOADMIN 21:21 → 4TH 21:21 → UNDODISIN 09-12 11:45
PROVIDERS: ADMIT Internal Medicine; ATTEND Internal Medicine
DX: I26.99 Other pulmonary embolism without acute cor pulmonale (principal); C34.12 Malignant neoplasm of upper lobe, left bronchus or lung; I42.9 Cardiomyopathy, unspecified; G89.3 Neoplasm related pain (acute) (chronic); F32.9 Major depressive disorder, single episode, unspecified; R09.1 Pleurisy; Z87.891 Personal history of nicotine dependence
CPT/HCPCS: 36415; 71045; 80053; 83735; 83880; 84100; 85025; 94640; 94760; 94761

== ENCOUNTER 2017-11-08 07:56 | Outpatient (RCR) | payer BC, MEDICARE ==
[2017-09-02 09:33] LABS: BASOPHILS % (AUTO) 0 % (0-10); EOSINOPHILS # (AUTO) 0.1 10^3/uL (0.0-0.3); EOSINOPHILS % (AUTO) 1 % (0-10); HEMATOCRIT 42 % (40-54); HEMOGLOBIN 14.9 G/DL (13.3-17.7); LYMPHOCYTES # (AUTO) 1.8 X 10^3 (1.0-4.0); LYMPHOCYTES % (AUTO) 36 % (12-44); MEAN CORPUSCULAR HEMOGLOBIN 31 PG (25-34); MEAN CORPUSCULAR HGB CONC 36 G/DL (32-36); MEAN CORPUSCULAR VOLUME 86 FL (80-99); MEAN PLATELET VOLUME 8.4 FL (7.4-10.4); MONOCYTES # (AUTO) 0.6 X 10^3 (0.0-1.0); MONOCYTES % (AUTO) 12 % (0-12); NEUTROPHILS # (AUTO) 2.6 X 10^3 (1.8-7.8); NEUTROPHILS % (AUTO) 51 % (42-75); PLATELET COUNT 235 10^3/uL (130-400); RED BLOOD COUNT 4.82 10^6/uL (4.35-5.85); RED CELL DISTRIBUTION WIDTH 13.5 % (10.0-14.5)
[2017-09-02 09:55] LABS: BUN/CREATININE RATIO 13; CALCIUM 8.9 MG/DL (8.5-10.1); CARBON DIOXIDE 26 MMOL/L (21-32); CHLORIDE 97 MMOL/L (98-107); CREATININE SERUM 0.78 MG/DL (0.60-1.30); GFR ESTIMATED > 60; GLUCOSE 116 MG/DL (70-105); POTASSIUM 3.9 MMOL/L (3.6-5.0); SODIUM 132 MMOL/L (135-145)
[2017-10-16 08:15] LABS: BASOPHILS % (AUTO) 1 % (0-10); EOSINOPHILS # (AUTO) 0.1 10^3/uL (0.0-0.3); EOSINOPHILS % (AUTO) 2 % (0-10); HEMATOCRIT 41 % (40-54); HEMOGLOBIN 14.1 G/DL (13.3-17.7); LYMPHOCYTES # (AUTO) 1.6 X 10^3 (1.0-4.0); LYMPHOCYTES % (AUTO) 37 % (12-44); MEAN CORPUSCULAR HEMOGLOBIN 31 PG (25-34); MEAN CORPUSCULAR HGB CONC 34 G/DL (32-36); MEAN CORPUSCULAR VOLUME 92 FL (80-99); MEAN PLATELET VOLUME 8.3 FL (7.4-10.4); MONOCYTES # (AUTO) 0.8 X 10^3 (0.0-1.0); MONOCYTES % (AUTO) 18 % (0-12); NEUTROPHILS # (AUTO) 1.8 X 10^3 (1.8-7.8); NEUTROPHILS % (AUTO) 42 % (42-75); PLATELET COUNT 248 10^3/uL (130-400); RED BLOOD COUNT 4.49 10^6/uL (4.35-5.85); RED CELL DISTRIBUTION WIDTH 17.1 % (10.0-14.5); WHITE BLOOD COUNT 4.3 10^3/uL (4.3-11.0)
[2017-10-16 08:33] LABS: ALANINE AMINOTRANSFERASE 19 U/L (0-55); ALKALINE PHOSPHATASE 92 U/L (40-136); BILIRUBIN,TOTAL 0.3 MG/DL (0.1-1.0); BUN/CREATININE RATIO 26; CARBON DIOXIDE 22 MMOL/L (21-32); CHLORIDE 110 MMOL/L (98-107); CREATININE SERUM 0.82 MG/DL (0.60-1.30); GFR ESTIMATED > 60; GLUCOSE 96 MG/DL (70-105); MAGNESIUM 2.4 MG/DL (1.8-2.4); POTASSIUM 4.3 MMOL/L (3.6-5.0); SODIUM 141 MMOL/L (135-145); TOTAL PROTEIN 6.2 GM/DL (6.4-8.2)
[2017-11-06 08:13] LABS: BASOPHILS % (AUTO) 1 % (0-10); EOSINOPHILS # (AUTO) 0.1 10^3/uL (0.0-0.3); EOSINOPHILS % (AUTO) 2 % (0-10); HEMATOCRIT 44 % (40-54); HEMOGLOBIN 15.1 G/DL (13.3-17.7); LYMPHOCYTES # (AUTO) 1.3 X 10^3 (1.0-4.0); LYMPHOCYTES % (AUTO) 33 % (12-44); MEAN CORPUSCULAR HEMOGLOBIN 32 PG (25-34); MEAN CORPUSCULAR HGB CONC 34 G/DL (32-36); MEAN CORPUSCULAR VOLUME 94 FL (80-99); MEAN PLATELET VOLUME 8.7 FL (7.4-10.4); MONOCYTES # (AUTO) 0.5 X 10^3 (0.0-1.0); MONOCYTES % (AUTO) 13 % (0-12); NEUTROPHILS # (AUTO) 1.9 X 10^3 (1.8-7.8); NEUTROPHILS % (AUTO) 51 % (42-75); PLATELET COUNT 190 10^3/uL (130-400); RED BLOOD COUNT 4.69 10^6/uL (4.35-5.85); WHITE BLOOD COUNT 3.8 10^3/uL (4.3-11.0)
[2017-11-06 08:37] LABS: ALANINE AMINOTRANSFERASE 21 U/L (0-55); ALBUMIN 4.1 GM/DL (3.2-4.5); ALKALINE PHOSPHATASE 91 U/L (40-136); BILIRUBIN,TOTAL 0.3 MG/DL (0.1-1.0); BUN/CREATININE RATIO 21; CALCIUM 9.2 MG/DL (8.5-10.1); CARBON DIOXIDE 22 MMOL/L (21-32); CHLORIDE 107 MMOL/L (98-107); CREATININE SERUM 0.85 MG/DL (0.60-1.30); GFR ESTIMATED > 60; GLUCOSE 101 MG/DL (70-105); MAGNESIUM 2.2 MG/DL (1.8-2.4); POTASSIUM 4.1 MMOL/L (3.6-5.0); SODIUM 139 MMOL/L (135-145); TOTAL PROTEIN 6.8 GM/DL (6.4-8.2)
[~2017-11-08] VITALS: Ht 182.9 cm; Wt 99.3 kg
[~2017-11-08 07:56] MED LIST changes: +APIX5TAB PO; +BUPR100T8 PO; +CARBOPLATIN IV SCH; +CHOL10007 PO; -CITA20TA7 PO; +CITA20TA9 PO; +D5W IV SCH; +ETOPOSIDE 200 MG in NORMAL SALINE (CANCER CENTER) 500 ML IV SCH; +FOSAPREPITANT DIMEGLUMINE 150 MG in NS (IVPB) CANCER CENTER ONLY 150 ML IV SCH; +LIDO700A45 TP; +NS IV 1000 ML (CANCER CTR) IV SCH; +NS IV 500 ML (CANCER CENTER) 500 ML ONE; +ONDANSETRON MDV (CANCER CENTER 16 MG, DEXAMETHASONE PF INJ (CANCER C 10 MG in NS (IVPB)... IV SCH; +OXYC10TA7 PO; +PALONOSETRON 0.25 MG, DEXAMETHASONE 10 MG/NS 50 ML IVPB IV PRN; +PROC10TA10 PO
== END 2017-11-19 | disposition home or self-care (01) ==
LOC: ONC 07:56
PROVIDERS: ATTEND Internal Medicine Hematology & Oncology
DX: Z51.11 Encounter for antineoplastic chemotherapy (principal); C34.12 Malignant neoplasm of upper lobe, left bronchus or lung; C79.51 Secondary malignant neoplasm of bone; C78.7 Secondary malignant neoplasm of liver and intrahepatic bile duct; C77.1 Secondary and unspecified malignant neoplasm of intrathoracic lymph nodes; I26.99 Other pulmonary embolism without acute cor pulmonale; R13.10 Dysphagia, unspecified; Z87.891 Personal history of nicotine dependence; Z79.01 Long term (current) use of anticoagulants; Z79.899 Other long term (current) drug therapy
CPT/HCPCS: 36591; 80048; 80053; 83735; 85025; 96367; 96375; 96413; 96417; 99214

== ENCOUNTER → 2017-11-27 | Outpatient (CLI) | payer BC, MEDICARE ==
[~2017-11-27] MED LIST changes: -CARBOPLATIN IV SCH; -D5W IV SCH; -ETOPOSIDE 200 MG in NORMAL SALINE (CANCER CENTER) 500 ML IV SCH; -FOSAPREPITANT DIMEGLUMINE 150 MG in NS (IVPB) CANCER CENTER ONLY 150 ML IV SCH; +GADOBUTROL 10 MMOL/10 ML (GADAVIST) VIAL IV ONE; -NS IV 1000 ML (CANCER CTR) IV SCH; -NS IV 500 ML (CANCER CENTER) 500 ML ONE; -ONDANSETRON MDV (CANCER CENTER 16 MG, DEXAMETHASONE PF INJ (CANCER C 10 MG in NS (IVPB)... IV SCH; -PALONOSETRON 0.25 MG, DEXAMETHASONE 10 MG/NS 50 ML IVPB IV PRN
--- NOTE | 2017-11-27 12:37 | Diagnostic Imaging Report ---
CLINICAL INDICATION: Patient diagnosed with cancer of lungs, spine and liver. Patient complains of posterior headaches with blurry vision when he tries to read and has been off balance. Patient currently undergoing chemotherapy treatments. EXAMINATION: MRI of the brain performed without and with 10 cc of Gadavist IV contrast. Sequences include axial DWI, ADC map, axial gradient echo, axial T2, axial FLAIR, axial T1, axial T1 post IV contrast, coronal T1 fat-sat post IV contrast, and sagittal T1 post IV contrast. COMPARISON: None. FINDINGS: There is no evidence of acute cerebral infarct, intracranial hemorrhage, or gross mass effect. There is a small vascular shaped area of enhancement in the left cerebellum likely representing a developmental venous anomaly. Otherwise, there is no abnormal IV contrast enhancement seen on this exam. The brain parenchymal volume appears appropriate for patient's age. There are small focal and patchy areas of high T2 signal involving the cerebellum and pedro. There is normal verdugo-white matter distinction. There is no significant midline shift or herniation. The pituitary gland, sella, and suprasellar regions are unremarkable as visualized. The que[place] of Fernández vascular structures show no gross abnormality as visualized. There is no evidence of hydrocephalus. The basal cisterns are unremarkable. The skull, extracranial soft tissue, and orbits are unremarkable. There is mild mucosal thickening involving the ethmoid sinus. There is minimal high T2 signal fluid in left mastoid air cells. IMPRESSION: 1: There is no evidence of acute cerebral infarction, intracranial hemorrhage, hydrocephalus, or enhancing mass. There is no evidence of metastatic disease. 2: There is a small amount of patchy high T2 signal in the region of the pedro which is nonspecific. Chronic ischemic changes may be considered. If patient's symptoms worsen, then repeat imaging is suggested, as post treatment encephalopathy may be considered. Early central pontine myelinolysis also cannot be excluded. 3: Otherwise, the remainder of the brain parenchyma is unremarkable. 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 5: There is mild paranasal sinus disease and small amount of fluid in the left mastoid air cells. Dictated by: Dictated on workstation # [id number]
== END ==
LOC: RAD 10:57
PROVIDERS: ATTEND Internal Medicine Hematology & Oncology
DX: C34.90 Malignant neoplasm of unspecified part of unspecified bronchus or lung (principal); C41.2 Malignant neoplasm of vertebral column; C22.8 Malignant neoplasm of liver, primary, unspecified as to type; H53.8 Other visual disturbances; J32.8 Other chronic sinusitis
CPT/HCPCS: 70553

== ENCOUNTER 2018-01-01 08:22 | Outpatient (RCR) | payer BC, MEDICARE ==
[2017-12-04 14:18] LABS: BASOPHILS % (AUTO) 0 % (0-10); EOSINOPHILS # (AUTO) 0.1 10^3/uL (0.0-0.3); EOSINOPHILS % (AUTO) 2 % (0-10); HEMATOCRIT 41 % (40-54); HEMOGLOBIN 14.5 G/DL (13.3-17.7); LYMPHOCYTES # (AUTO) 1.7 X 10^3 (1.0-4.0); LYMPHOCYTES % (AUTO) 36 % (12-44); MEAN CORPUSCULAR HEMOGLOBIN 33 PG (25-34); MEAN CORPUSCULAR HGB CONC 35 G/DL (32-36); MEAN CORPUSCULAR VOLUME 95 FL (80-99); MEAN PLATELET VOLUME 8.4 FL (7.4-10.4); MONOCYTES # (AUTO) 0.8 X 10^3 (0.0-1.0); MONOCYTES % (AUTO) 18 % (0-12); NEUTROPHILS # (AUTO) 2.1 X 10^3 (1.8-7.8); NEUTROPHILS % (AUTO) 44 % (42-75); PLATELET COUNT 248 10^3/uL (130-400); RED BLOOD COUNT 4.36 10^6/uL (4.35-5.85); RED CELL DISTRIBUTION WIDTH 15.6 % (10.0-14.5); WHITE BLOOD COUNT 4.7 10^3/uL (4.3-11.0)
[2017-12-04 14:43] LABS: ALANINE AMINOTRANSFERASE 17 U/L (0-55); ALBUMIN 3.9 GM/DL (3.2-4.5); ALKALINE PHOSPHATASE 74 U/L (40-136); BILIRUBIN,TOTAL 0.2 MG/DL (0.1-1.0); BUN/CREATININE RATIO 21; CALCIUM 8.7 MG/DL (8.5-10.1); CARBON DIOXIDE 21 MMOL/L (21-32); CHLORIDE 107 MMOL/L (98-107); CREATININE SERUM 0.78 MG/DL (0.60-1.30); GFR ESTIMATED > 60; GLUCOSE 91 MG/DL (70-105); POTASSIUM 4.2 MMOL/L (3.6-5.0); SODIUM 138 MMOL/L (135-145); TOTAL PROTEIN 6.6 GM/DL (6.4-8.2)
[2017-12-12 08:32] LABS: BASOPHILS % (AUTO) 1 % (0-10); EOSINOPHILS # (AUTO) 0.1 10^3/uL (0.0-0.3); EOSINOPHILS % (AUTO) 2 % (0-10); HEMATOCRIT 41 % (40-54); HEMOGLOBIN 14.1 G/DL (13.3-17.7); LYMPHOCYTES # (AUTO) 1.3 X 10^3 (1.0-4.0); LYMPHOCYTES % (AUTO) 34 % (12-44); MEAN CORPUSCULAR HEMOGLOBIN 33 PG (25-34); MEAN CORPUSCULAR HGB CONC 34 G/DL (32-36); MEAN CORPUSCULAR VOLUME 95 FL (80-99); MEAN PLATELET VOLUME 8.2 FL (7.4-10.4); MONOCYTES # (AUTO) 0.6 X 10^3 (0.0-1.0); MONOCYTES % (AUTO) 15 % (0-12); NEUTROPHILS # (AUTO) 1.8 X 10^3 (1.8-7.8); NEUTROPHILS % (AUTO) 48 % (42-75); PLATELET COUNT 178 10^3/uL (130-400); RED CELL DISTRIBUTION WIDTH 14.9 % (10.0-14.5); WHITE BLOOD COUNT 3.8 10^3/uL (4.3-11.0)
[2017-12-12 08:50] LABS: BUN/CREATININE RATIO 11; CALCIUM 8.9 MG/DL (8.5-10.1); CARBON DIOXIDE 24 MMOL/L (21-32); CHLORIDE 109 MMOL/L (98-107); GFR ESTIMATED > 60; GLUCOSE 107 MG/DL (70-105); POTASSIUM 3.9 MMOL/L (3.6-5.0); SODIUM 140 MMOL/L (135-145)
[2017-12-18 09:04] LABS: BASOPHILS % (AUTO) 1 % (0-10); EOSINOPHILS # (AUTO) 0.1 10^3/uL (0.0-0.3); EOSINOPHILS % (AUTO) 3 % (0-10); HEMATOCRIT 39 % (40-54); HEMOGLOBIN 13.4 G/DL (13.3-17.7); LYMPHOCYTES # (AUTO) 1.3 X 10^3 (1.0-4.0); LYMPHOCYTES % (AUTO) 34 % (12-44); MEAN CORPUSCULAR HEMOGLOBIN 33 PG (25-34); MEAN CORPUSCULAR HGB CONC 35 G/DL (32-36); MEAN CORPUSCULAR VOLUME 95 FL (80-99); MEAN PLATELET VOLUME 8.4 FL (7.4-10.4); MONOCYTES # (AUTO) 0.5 X 10^3 (0.0-1.0); MONOCYTES % (AUTO) 13 % (0-12); NEUTROPHILS # (AUTO) 1.9 X 10^3 (1.8-7.8); NEUTROPHILS % (AUTO) 50 % (42-75); PLATELET COUNT 155 10^3/uL (130-400); RED BLOOD COUNT 4.06 10^6/uL (4.35-5.85); RED CELL DISTRIBUTION WIDTH 14.9 % (10.0-14.5); WHITE BLOOD COUNT 3.8 10^3/uL (4.3-11.0)
[2017-12-18 09:19] LABS: BUN/CREATININE RATIO 22; CALCIUM 8.6 MG/DL (8.5-10.1); CARBON DIOXIDE 23 MMOL/L (21-32); CHLORIDE 110 MMOL/L (98-107); CREATININE SERUM 0.85 MG/DL (0.60-1.30); GFR ESTIMATED > 60; GLUCOSE 115 MG/DL (70-105); POTASSIUM 3.6 MMOL/L (3.6-5.0); SODIUM 140 MMOL/L (135-145)
[~2018-01-01] VITALS: Ht 182.9 cm; Wt 102.5 kg
[~2018-01-01 08:22] MED LIST changes: +CARBOPLATIN IV SCH; +D5W IV SCH; +ETOPOSIDE 200 MG in NORMAL SALINE (CANCER CENTER) 500 ML IV SCH; +FOSAPREPITANT DIMEGLUMINE 150 MG in NS (IVPB) CANCER CENTER ONLY 150 ML IV SCH; -GADOBUTROL 10 MMOL/10 ML (GADAVIST) VIAL IV ONE; +NS IV 1000 ML (CANCER CTR) IV SCH; +NS IV 500 ML (CANCER CENTER) 500 ML ONE; +NS IV SCH; +ONDANSETRON MDV (CANCER CENTER 16 MG, DEXAMETHASONE PF INJ (CANCER C 10 MG in NS (IVPB)... IV SCH; +PALONOSETRON 0.25 MG, DEXAMETHASONE 10 MG/NS 50 ML IVPB IV PRN; +TOPOTECAN HCL IV SCH
[2018-01-01 08:39] LABS: BASOPHILS % (AUTO) 1 % (0-10); EOSINOPHILS # (AUTO) 0.1 10^3/uL (0.0-0.3); EOSINOPHILS % (AUTO) 2 % (0-10); HEMATOCRIT 43 % (40-54); HEMOGLOBIN 14.9 G/DL (13.3-17.7); LYMPHOCYTES # (AUTO) 1.4 X 10^3 (1.0-4.0); LYMPHOCYTES % (AUTO) 32 % (12-44); MEAN CORPUSCULAR HEMOGLOBIN 33 PG (25-34); MEAN CORPUSCULAR HGB CONC 35 G/DL (32-36); MEAN CORPUSCULAR VOLUME 94 FL (80-99); MEAN PLATELET VOLUME 8.5 FL (7.4-10.4); MONOCYTES # (AUTO) 0.6 X 10^3 (0.0-1.0); MONOCYTES % (AUTO) 14 % (0-12); NEUTROPHILS # (AUTO) 2.3 X 10^3 (1.8-7.8); NEUTROPHILS % (AUTO) 52 % (42-75); PLATELET COUNT 244 10^3/uL (130-400); RED BLOOD COUNT 4.57 10^6/uL (4.35-5.85); RED CELL DISTRIBUTION WIDTH 15.2 % (10.0-14.5); WHITE BLOOD COUNT 4.4 10^3/uL (4.3-11.0)
[2018-01-01 08:59] LABS: ALANINE AMINOTRANSFERASE 19 U/L (0-55); ALKALINE PHOSPHATASE 77 U/L (40-136); BILIRUBIN,TOTAL 0.5 MG/DL (0.1-1.0); BUN/CREATININE RATIO 18; CALCIUM 9.3 MG/DL (8.5-10.1); CARBON DIOXIDE 24 MMOL/L (21-32); CHLORIDE 107 MMOL/L (98-107); CREATININE SERUM 0.89 MG/DL (0.60-1.30); GFR ESTIMATED > 60; GLUCOSE 112 MG/DL (70-105); MAGNESIUM 2.3 MG/DL (1.8-2.4); POTASSIUM 3.8 MMOL/L (3.6-5.0); SODIUM 138 MMOL/L (135-145); TOTAL PROTEIN 6.4 GM/DL (6.4-8.2)
[2018-01-08] MEDS ORDERED: NS IV 500 ML (CANCER CENTER) 500 ML IV SCH (08:15)
[2018-01-08] MEDS ORDERED: NIVOLUMAB 200 MG, NIVOLUMAB 40 MG in NS (IVPB) CANCER CENTER 50 ML IV SCH (08:15)
[2018-01-08 10:48] LABS: BASOPHILS % (AUTO) 1 % (0-10); EOSINOPHILS # (AUTO) 0.1 10^3/uL (0.0-0.3); EOSINOPHILS % (AUTO) 1 % (0-10); HEMATOCRIT 42 % (40-54); LYMPHOCYTES # (AUTO) 1.5 X 10^3 (1.0-4.0); LYMPHOCYTES % (AUTO) 25 % (12-44); MEAN CORPUSCULAR HEMOGLOBIN 34 PG (25-34); MEAN CORPUSCULAR HGB CONC 36 G/DL (32-36); MEAN CORPUSCULAR VOLUME 96 FL (80-99); MEAN PLATELET VOLUME 8.3 FL (7.4-10.4); MONOCYTES # (AUTO) 0.9 X 10^3 (0.0-1.0); MONOCYTES % (AUTO) 14 % (0-12); NEUTROPHILS # (AUTO) 3.5 X 10^3 (1.8-7.8); NEUTROPHILS % (AUTO) 59 % (42-75); PLATELET COUNT 222 10^3/uL (130-400); RED BLOOD COUNT 4.42 10^6/uL (4.35-5.85); RED CELL DISTRIBUTION WIDTH 15.1 % (10.0-14.5); WHITE BLOOD COUNT 5.9 10^3/uL (4.3-11.0)
[2018-01-08 11:10] LABS: BUN/CREATININE RATIO 12; CARBON DIOXIDE 24 MMOL/L (21-32); CHLORIDE 108 MMOL/L (98-107); CREATININE SERUM 1.06 MG/DL (0.60-1.30); GFR ESTIMATED > 60; GLUCOSE 118 MG/DL (70-105); POTASSIUM 3.9 MMOL/L (3.6-5.0); SODIUM 141 MMOL/L (135-145)
== END 2018-01-08 10:30 | disposition home or self-care (01) ==
LOC: ONC 08:22
PROVIDERS: ATTEND Internal Medicine Hematology & Oncology
DX: Z51.11 Encounter for antineoplastic chemotherapy (principal); C34.12 Malignant neoplasm of upper lobe, left bronchus or lung; C78.01 Secondary malignant neoplasm of right lung; C78.02 Secondary malignant neoplasm of left lung; C77.1 Secondary and unspecified malignant neoplasm of intrathoracic lymph nodes; C78.7 Secondary malignant neoplasm of liver and intrahepatic bile duct; C79.51 Secondary malignant neoplasm of bone; M25.551 Pain in right hip; M25.552 Pain in left hip; M54.5 Low back pain; I27.82 Chronic pulmonary embolism; Z79.01 Long term (current) use of anticoagulants; Z79.899 Other long term (current) drug therapy; Z87.891 Personal history of nicotine dependence
CPT/HCPCS: 36415; 36591; 80048; 80053; 83735; 84443; 85025; 96375; 96413; 99213

== ENCOUNTER → 2018-01-06 | Outpatient (CLI) | payer BC, MEDICARE ==
[~2018-01-06] MED LIST changes: -CARBOPLATIN IV SCH; -D5W IV SCH; -ETOPOSIDE 200 MG in NORMAL SALINE (CANCER CENTER) 500 ML IV SCH; -FOSAPREPITANT DIMEGLUMINE 150 MG in NS (IVPB) CANCER CENTER ONLY 150 ML IV SCH; +GADOBUTROL 10 MMOL/10 ML (GADAVIST) VIAL IV ONE; -NS IV 1000 ML (CANCER CTR) IV SCH; -NS IV 500 ML (CANCER CENTER) 500 ML ONE; -NS IV SCH; -ONDANSETRON MDV (CANCER CENTER 16 MG, DEXAMETHASONE PF INJ (CANCER C 10 MG in NS (IVPB)... IV SCH; -PALONOSETRON 0.25 MG, DEXAMETHASONE 10 MG/NS 50 ML IVPB IV PRN; -TOPOTECAN HCL IV SCH
--- NOTE | 2018-01-06 10:48 | Diagnostic Imaging Report ---
PROCEDURE: MR imaging cervical spine with and without contrast. TECHNIQUE: Multiplanar and multisequence MRI of the cervical spine was performed with and without contrast. INDICATION: Leg weakness. COMPARISON: No prior studies are available for comparison. FINDINGS: Curvature and alignment of the cervical spine is normal. The vertebral body marrow signal is normal. No geographic marrow lesion is seen. There is generalized degenerative disc disease with variable disc space narrowing and desiccation, most severe at the C5-C6 and C6-C7 levels. The cervical cord does show normal homogeneous signal intensity and normal morphology. No abnormal cord signal is identified. C2-C3: No central canal or neuroforaminal stenosis is identified. C3-C4: Endplate osteophytes are present. Uncovertebral joint degenerative change does result in left neuroforaminal stenosis. Right neural foramen and central canal are patent. C4-C5: Endplate osteophytes indent the ventral thecal sac, but no significant central canal stenosis is identified. There is [id number] bilateral neuroforaminal stenosis. C5-C6: Endplate osteophytes indent the ventral thecal sac. Uncovertebral joint degenerative change does result in moderate bilateral neuroforaminal stenosis. Central canal is patent. C6-C7: Endplate osteophytes are present. No significant neuroforaminal or central canal stenosis is seen. C7-T1: Unremarkable. Post contrast imaging is without abnormal enhancement. IMPRESSION: Multilevel cervical spondylosis with multilevel neuroforaminal narrowing described level by level above. No central canal stenosis is seen. No findings to suggest metastatic disease are identified. No abnormal cord signal is identified. Dictated by: Dictated on workstation # [id number]
== END ==
LOC: RAD 09:34
PROVIDERS: ATTEND Internal Medicine Hematology & Oncology
DX: M47.812 Spondylosis without myelopathy or radiculopathy, cervical region (principal); M50.322 Other cervical disc degeneration at C5-C6 level; M99.71 Connective tissue and disc stenosis of intervertebral foramina of cervical region
CPT/HCPCS: 72156

== ENCOUNTER 2018-03-05 08:18 | Outpatient (RCR) | payer BC, MEDICARE ==
[2018-01-22 09:43] LABS: BASOPHILS % (AUTO) 0 % (0-10); EOSINOPHILS # (AUTO) 0.1 10^3/uL (0.0-0.3); EOSINOPHILS % (AUTO) 2 % (0-10); HEMATOCRIT 44 % (40-54); HEMOGLOBIN 15.4 G/DL (13.3-17.7); LYMPHOCYTES # (AUTO) 1.3 X 10^3 (1.0-4.0); LYMPHOCYTES % (AUTO) 17 % (12-44); MEAN CORPUSCULAR HEMOGLOBIN 33 PG (25-34); MEAN CORPUSCULAR HGB CONC 35 G/DL (32-36); MEAN CORPUSCULAR VOLUME 95 FL (80-99); MEAN PLATELET VOLUME 8.5 FL (7.4-10.4); MONOCYTES # (AUTO) 0.6 X 10^3 (0.0-1.0); MONOCYTES % (AUTO) 8 % (0-12); NEUTROPHILS # (AUTO) 5.5 X 10^3 (1.8-7.8); NEUTROPHILS % (AUTO) 73 % (42-75); PLATELET COUNT 216 10^3/uL (130-400); RED BLOOD COUNT 4.67 10^6/uL (4.35-5.85); RED CELL DISTRIBUTION WIDTH 14.7 % (10.0-14.5); WHITE BLOOD COUNT 7.5 10^3/uL (4.3-11.0)
[2018-01-22 10:03] LABS: ALANINE AMINOTRANSFERASE 19 U/L (0-55); ALBUMIN 4.1 GM/DL (3.2-4.5); ALKALINE PHOSPHATASE 86 U/L (40-136); BILIRUBIN,TOTAL 0.5 MG/DL (0.1-1.0); BUN/CREATININE RATIO 15; CALCIUM 9.1 MG/DL (8.5-10.1); CARBON DIOXIDE 21 MMOL/L (21-32); CHLORIDE 108 MMOL/L (98-107); CREATININE SERUM 0.96 MG/DL (0.60-1.30); GFR ESTIMATED > 60; GLUCOSE 135 MG/DL (70-105); SODIUM 139 MMOL/L (135-145); TOTAL PROTEIN 6.6 GM/DL (6.4-8.2)
[2018-02-05 08:30] LABS: BASOPHILS % (AUTO) 1 % (0-10); EOSINOPHILS # (AUTO) 0.1 10^3/uL (0.0-0.3); EOSINOPHILS % (AUTO) 3 % (0-10); HEMATOCRIT 45 % (40-54); HEMOGLOBIN 15.5 G/DL (13.3-17.7); LYMPHOCYTES # (AUTO) 1.1 X 10^3 (1.0-4.0); LYMPHOCYTES % (AUTO) 20 % (12-44); MEAN CORPUSCULAR HEMOGLOBIN 33 PG (25-34); MEAN CORPUSCULAR HGB CONC 34 G/DL (32-36); MEAN CORPUSCULAR VOLUME 95 FL (80-99); MEAN PLATELET VOLUME 8.3 FL (7.4-10.4); MONOCYTES # (AUTO) 0.6 X 10^3 (0.0-1.0); MONOCYTES % (AUTO) 11 % (0-12); NEUTROPHILS # (AUTO) 3.5 X 10^3 (1.8-7.8); NEUTROPHILS % (AUTO) 65 % (42-75); PLATELET COUNT 213 10^3/uL (130-400); RED BLOOD COUNT 4.77 10^6/uL (4.35-5.85); WHITE BLOOD COUNT 5.4 10^3/uL (4.3-11.0)
[2018-02-05 08:49] LABS: ALANINE AMINOTRANSFERASE 17 U/L (0-55); ALBUMIN 3.8 GM/DL (3.2-4.5); ALKALINE PHOSPHATASE 82 U/L (40-136); BILIRUBIN,TOTAL 0.5 MG/DL (0.1-1.0); BUN/CREATININE RATIO 20; CALCIUM 9.1 MG/DL (8.5-10.1); CARBON DIOXIDE 23 MMOL/L (21-32); CHLORIDE 107 MMOL/L (98-107); CREATININE SERUM 0.87 MG/DL (0.60-1.30); GFR ESTIMATED > 60; GLUCOSE 133 MG/DL (70-105); POTASSIUM 3.9 MMOL/L (3.6-5.0); SODIUM 139 MMOL/L (135-145); TOTAL PROTEIN 6.4 GM/DL (6.4-8.2)
[2018-02-19 08:18] LABS: BASOPHILS % (AUTO) 1 % (0-10); EOSINOPHILS # (AUTO) 0.2 10^3/uL (0.0-0.3); EOSINOPHILS % (AUTO) 4 % (0-10); HEMATOCRIT 46 % (40-54); LYMPHOCYTES # (AUTO) 1.2 X 10^3 (1.0-4.0); LYMPHOCYTES % (AUTO) 22 % (12-44); MEAN CORPUSCULAR HEMOGLOBIN 33 PG (25-34); MEAN CORPUSCULAR HGB CONC 35 G/DL (32-36); MEAN CORPUSCULAR VOLUME 92 FL (80-99); MEAN PLATELET VOLUME 8.2 FL (7.4-10.4); MONOCYTES # (AUTO) 0.6 X 10^3 (0.0-1.0); MONOCYTES % (AUTO) 10 % (0-12); NEUTROPHILS # (AUTO) 3.7 X 10^3 (1.8-7.8); NEUTROPHILS % (AUTO) 64 % (42-75); PLATELET COUNT 222 10^3/uL (130-400); RED BLOOD COUNT 4.93 10^6/uL (4.35-5.85); RED CELL DISTRIBUTION WIDTH 13.3 % (10.0-14.5); WHITE BLOOD COUNT 5.8 10^3/uL (4.3-11.0)
[2018-02-19 08:35] LABS: ALANINE AMINOTRANSFERASE 22 U/L (0-55); ALBUMIN 4.2 GM/DL (3.2-4.5); ALKALINE PHOSPHATASE 85 U/L (40-136); BILIRUBIN,TOTAL 0.6 MG/DL (0.1-1.0); BUN/CREATININE RATIO 13; CALCIUM 9.1 MG/DL (8.5-10.1); CARBON DIOXIDE 22 MMOL/L (21-32); CHLORIDE 105 MMOL/L (98-107); CREATININE SERUM 0.91 MG/DL (0.60-1.30); GFR ESTIMATED > 60; GLUCOSE 105 MG/DL (70-105); POTASSIUM 3.9 MMOL/L (3.6-5.0); SODIUM 136 MMOL/L (135-145); TOTAL PROTEIN 6.9 GM/DL (6.4-8.2)
[~2018-03-05] VITALS: Ht 182.9 cm; Wt 100.7 kg
[~2018-03-05 08:18] MED LIST changes: -GADOBUTROL 10 MMOL/10 ML (GADAVIST) VIAL IV ONE; +NIVOLUMAB 200 MG, NIVOLUMAB 40 MG in NS (IVPB) CANCER CENTER 50 ML IV SCH; +NS IV 500 ML (CANCER CENTER) 500 ML IV SCH
== END 2018-03-18 09:31 | disposition home or self-care (01) ==
LOC: ONC 08:18
PROVIDERS: ATTEND Internal Medicine Hematology & Oncology
DX: Z51.11 Encounter for antineoplastic chemotherapy (principal); C34.12 Malignant neoplasm of upper lobe, left bronchus or lung; C78.01 Secondary malignant neoplasm of right lung; C78.02 Secondary malignant neoplasm of left lung; C77.1 Secondary and unspecified malignant neoplasm of intrathoracic lymph nodes; C78.7 Secondary malignant neoplasm of liver and intrahepatic bile duct; C79.51 Secondary malignant neoplasm of bone; M25.551 Pain in right hip; M25.552 Pain in left hip; M54.5 Low back pain; I27.82 Chronic pulmonary embolism; Z79.01 Long term (current) use of anticoagulants; Z79.899 Other long term (current) drug therapy; Z87.891 Personal history of nicotine dependence
CPT/HCPCS: 36591; 80053; 85025; 96413

== ENCOUNTER → 2018-03-12 | Outpatient (CLI) | payer BC, MEDICARE ==
[~2018-03-12] MED LIST changes: -NIVOLUMAB 200 MG, NIVOLUMAB 40 MG in NS (IVPB) CANCER CENTER 50 ML IV SCH; -NS IV 500 ML (CANCER CENTER) 500 ML IV SCH; +RT-ALBUTEROL SULF 2.5 MG/3 ML PRE-MIX VIAL INH ONE
== END ==
LOC: RT 09:27
PROVIDERS: ATTEND Nurse Practitioner Family
DX: C34.90 Malignant neoplasm of unspecified part of unspecified bronchus or lung (principal); G47.34 Idiopathic sleep related nonobstructive alveolar hypoventilation; Z86.711 Personal history of pulmonary embolism; Z79.01 Long term (current) use of anticoagulants
CPT/HCPCS: 94060; 94726; 94729

== ENCOUNTER 2018-03-19 07:53 | Outpatient (RCR) | payer BC, MEDICARE ==
[~2018-03-19] VITALS: Ht 182.9 cm; Wt 101.6 kg
[~2018-03-19 07:53] MED LIST changes: -RT-ALBUTEROL SULF 2.5 MG/3 ML PRE-MIX VIAL INH ONE
[2018-03-19] MEDS ORDERED: NIVOLUMAB 200 MG, NIVOLUMAB 40 MG in NS (IVPB) CANCER CENTER 50 ML IV SCH (08:02)
[2018-03-19] MEDS ORDERED: NS IV 500 ML (CANCER CENTER) 500 ML IV SCH (08:02)
[2018-03-19 08:06] LABS: BASOPHILS % (AUTO) 1 % (0-10); EOSINOPHILS # (AUTO) 0.2 10^3/uL (0.0-0.3); EOSINOPHILS % (AUTO) 3 % (0-10); HEMATOCRIT 44 % (40-54); HEMOGLOBIN 15.8 G/DL (13.3-17.7); LYMPHOCYTES # (AUTO) 1.2 X 10^3 (1.0-4.0); LYMPHOCYTES % (AUTO) 19 % (12-44); MEAN CORPUSCULAR HEMOGLOBIN 32 PG (25-34); MEAN CORPUSCULAR HGB CONC 36 G/DL (32-36); MEAN CORPUSCULAR VOLUME 91 FL (80-99); MEAN PLATELET VOLUME 8.2 FL (7.4-10.4); MONOCYTES # (AUTO) 0.7 X 10^3 (0.0-1.0); MONOCYTES % (AUTO) 11 % (0-12); NEUTROPHILS # (AUTO) 4.2 X 10^3 (1.8-7.8); NEUTROPHILS % (AUTO) 66 % (42-75); PLATELET COUNT 192 10^3/uL (130-400); RED BLOOD COUNT 4.87 10^6/uL (4.35-5.85); RED CELL DISTRIBUTION WIDTH 13.2 % (10.0-14.5); WHITE BLOOD COUNT 6.3 10^3/uL (4.3-11.0)
[2018-03-19 08:27] LABS: ALANINE AMINOTRANSFERASE 24 U/L (0-55); ALKALINE PHOSPHATASE 88 U/L (40-136); BILIRUBIN,TOTAL 0.4 MG/DL (0.1-1.0); BUN/CREATININE RATIO 14; CALCIUM 9.2 MG/DL (8.5-10.1); CARBON DIOXIDE 23 MMOL/L (21-32); CHLORIDE 105 MMOL/L (98-107); CREATININE SERUM 0.85 MG/DL (0.60-1.30); GFR ESTIMATED > 60; GLUCOSE 93 MG/DL (70-105); POTASSIUM 4.1 MMOL/L (3.6-5.0); SODIUM 137 MMOL/L (135-145); TOTAL PROTEIN 6.6 GM/DL (6.4-8.2)
[2018-03-21] MEDS ORDERED: PROC5TAB9 PO (16:22)
[2018-03-21] MEDS ORDERED: ALBU18HF2 INH (16:22)
[2018-03-21] MEDS ORDERED: APIX5TAB PO (16:22)
[2018-03-21] MEDS ORDERED: IPRA3AMP31 NEB (16:22)
[2018-03-21] MEDS ORDERED: AZIT250T12 PO (16:22)
[2018-03-21] MEDS ORDERED: NAPR-915 PO (16:22)
[2018-03-21] MEDS ORDERED: BUDE10.2 INH (16:22)
[2018-03-21] MEDS ORDERED: ZOLP5TAB7 PO (16:22)
[2018-03-21] MEDS ORDERED: OXYC10TA7 PO (16:29)
[2018-03-21] MEDS ORDERED: ONDA8TAB6 PO (16:29)
[2018-03-21] MEDS ORDERED: CHOL5000 PO (16:29)
[2018-03-21] MEDS ORDERED: MORP15TA PO (16:29)
[2018-03-24] MEDS ORDERED: CEFD300C3 PO (10:45)
[2018-03-24] MEDS ORDERED: LORA-404 PO (12:12)
== END 2018-06-17 | disposition home or self-care (01) ==
LOC: ONC 07:53
PROVIDERS: ATTEND Internal Medicine Hematology & Oncology
DX: Z51.11 Encounter for antineoplastic chemotherapy (principal); C34.12 Malignant neoplasm of upper lobe, left bronchus or lung; C78.7 Secondary malignant neoplasm of liver and intrahepatic bile duct; C79.51 Secondary malignant neoplasm of bone; C78.01 Secondary malignant neoplasm of right lung; C78.02 Secondary malignant neoplasm of left lung; C77.1 Secondary and unspecified malignant neoplasm of intrathoracic lymph nodes; I27.82 Chronic pulmonary embolism; Z79.01 Long term (current) use of anticoagulants; Z79.899 Other long term (current) drug therapy; Z87.891 Personal history of nicotine dependence
CPT/HCPCS: 36591; 80053; 85025; 96413

== ENCOUNTER 2018-03-21 12:45 | Inpatient (IN) | payer BC, MEDICARE ==
[~2018-03-21] VITALS: Ht 182.9 cm; Wt 100.2 kg
[2018-03-21] MEDS ORDERED: RT-ALBUTEROL/IPRATROPIUM 3 ML (DUONEB) VIAL INH ONE (13:00)
--- NOTE | 2018-03-21 13:21 | ED Respiratory ---
General Chief Complaint: Respiratory Problems Stated Complaint: TROUBLE BREATHING;LUNG PAIN Source: patient, family Exam Limitations: no limitations History of Present Illness Date Seen by Provider: Mar 21, 2018 Time Seen by Provider: 13:19 Initial Comments The patient is a 62-year-old white male brought to the emergency room because of continuing respiratory difficulties. He has had cough. There is no reported fever or diaphoresis. He has had treatments prior to arrival. These have not seemed to be very helpful. He is known to have extensive stage small cell lung cancer. This was discovered in the early spring and he was started on palliative chemotherapy on August 09. He had a port placed by Dr. Baldwin in August of this year. Timing/Duration: week Allergies and Home Medications Allergies Coded Allergies: adhesive tape (Verified Allergy, Unknown, 08/28/17) atenolol (Verified Allergy, Unknown, 08/28/17) fish oil (Verified Allergy, Unknown, 08/28/17) pravastatin (Verified Allergy, Unknown, 08/28/17) rosuvastatin (Verified Allergy, Unknown, 08/28/17) simvastatin (Verified Allergy, Unknown, 08/28/17) Home Medications Apixaban 5 Mg Tablet, 5 MG PO BID Prescribed by: QUIANA ACUNA on 09/11/17 1048 Apixaban 5 Mg Tablet, 10 MG PO BID 2 TABLETS TWICE DAILY X 7 DAYS Prescribed by: QUIANA ACUNA on 09/11/17 1058 Bupropion HCl 100 Mg Tablet.er, 100 MG PO DAILY, (Reported) Carvedilol 3.125 Mg Tablet, 3.125 MG PO DAILY PRN for irregular heartrate, ( Reported) Cholecalciferol (Vitamin D3) 1,000 Unit Capsule, 1,000 UNIT PO DAILY, (Reported) Citalopram Hydrobromide 20 Mg Tablet, 20 MG PO DAILY, (Reported) Cyanocobalamin/FA/Pyridoxine 1 Each Tablet, 1 TAB PO DAILY, (Reported) Lidocaine 1 Each Adh..patch, 1 EACH TP DAILY Prescribed by: QUIANA ACUNA on 09/12/17 0730 Morphine Sulfate 15 Mg Tablet, 15 MG PO Q2H PRN for PAIN-BREAKTHROUGH, (Reported ) Omeprazole 20 Mg Tablet.dr, 20 MG PO DAILY PRN for HEARTBURN, (Reported) Ondansetron HCl 8 Mg Tablet, 8 MG PO TID PRN for NAUSEA/VOMITING-1ST LINE, ( Reported) Orphenadrine Citrate 100 Mg Tablet.er, 100 MG PO DAILY, (Reported) Oxycodone HCl 10 Mg Tablet, 10 MG PO Q4H PRN for PAIN-SEVERE Prescribed by: QUIANA ACUNA on 09/11/17 1055 Polyethylene Glycol 3350 119 Gm Powder, 17 GM PO DAILY, (Reported) Prochlorperazine Maleate 10 Mg Tablet, 10 MG PO Q6H PRN for NAUSEA/VOMITING-4TH LINE, (Reported) Patient Home Medication List Home Medication List Reviewed: Yes Review of Systems Review of Systems Constitutional: see HPI EENTM: no symptoms reported Respiratory: cough, dyspnea on exertion, short of breath, other (increased pain with deep breath) Cardiovascular: no symptoms reported Gastrointestinal: no symptoms reported Musculoskeletal: no symptoms reported Skin: no symptoms reported Psychiatric/Neurological: No Symptoms Reported Hematologic/Lymphatic: No Symptoms Reported Past Bmrdfjm-Uvzgoq-Bsazur Hx Patient Social History Type Used: Cigarettes Former Smoker, Quit: Aug 28, 2016 Recent Hopitalizations: No Seasonal Allergies Seasonal Allergies: No Past Medical History Surgeries: Yes (hand sx, Port Placement) Tonsillectomy Respiratory: Yes (lung cancer) Cardiac: Yes Cardiomyopathy Neurological: No Gastrointestinal: No Musculoskeletal: Yes Arthritis Endocrine: No Cancer: Yes Lung Psychosocial: Yes Depression Integumentary: No Blood Disorders: No Adverse Reaction/Blood Tranf: No Family Medical History Heart Disease, Cancer Physical Exam Vital Signs - First Documented 03/21/18 13:24 Pulse Ox 95 O2 Delivery Room Air Capillary Refill : Height: 6'0.00" Weight: 213lbs. 0.0oz. 96.889749ly; 28.9 BMI Method: General Appearance: mild distress Eyes: Bilateral Eye Normal Inspection HEENT: normal ENT inspection Neck: full range of motion Respiratory: other (good air movement without wheezing or rhonchi is noted in all lung calix.) Cardiovascular: regular rate, rhythm, no edema, no gallop, no JVD Gastrointestinal: normal bowel sounds, non tender, soft, no organomegaly, no pulsatile mass Extremities: normal range of motion, non-tender, normal inspection, no pedal edema, no calf tenderness, normal capillary refill, pelvis stable Neurologic/Psychiatric: nephrology nurse II-XII nml as tested, no motor/sensory deficits, alert, normal mood/affect, oriented x 3 Skin: normal color, warm/dry, cyanosis, cool, diaphoresis, damp Lymphatic: no adenopathy Progress/Results/Core Measures Suspected Sepsis SIRS Temperature: Pulse: Respiratory Rate: Laboratory Tests 03/21/18 14:08: White Blood Count 9.3 Blood Pressure / Mean: Laboratory Tests 03/21/18 14:08: Creatinine 0.85, Platelet Count 206, Total Bilirubin 0.6 Results/Orders Lab Results Laboratory Tests Test 03/21/18 14:08 Range/Units White Blood Count 9.3 4.3-11.0 10^3/uL Red Blood Count 5.04 4.35-5.85 10^6/uL Hemoglobin 15.8 13.3-17.7 G/DL Hematocrit 46 40-54 % Mean Corpuscular Volume 91 80-99 FL Mean Corpuscular Hemoglobin 31 25-34 PG Mean Corpuscular Hemoglobin Concent 35 32-36 G/DL Red Cell Distribution Width 13.7 10.0-14.5 % Platelet Count 206 130-400 10^3/uL Mean Platelet Volume 8.6 7.4-10.4 FL Neutrophils (%) (Auto) 75 42-75 % Lymphocytes (%) (Auto) 13 12-44 % Monocytes (%) (Auto) 11 0-12 % Eosinophils (%) (Auto) 0 0-10 % Basophils (%) (Auto) 0 0-10 % Neutrophils # (Auto) 7.0 1.8-7.8 X 10^3 Lymphocytes # (Auto) 1.2 1.0-4.0 X 10^3 Monocytes # (Auto) 1.0 0.0-1.0 X 10^3 Eosinophils # (Auto) 0.0 0.0-0.3 10^3/uL Basophils # (Auto) 0.0 0.0-0.1 10^3/uL Sodium Level 135 135-145 MMOL/L Potassium Level 4.0 3.6-5.0 MMOL/L Chloride Level 103 98-107 MMOL/L Carbon Dioxide Level 19 L 21-32 MMOL/L Anion Gap 13 5-14 MMOL/L Blood Urea Nitrogen 14 7-18 MG/DL Creatinine 0.85 0.60-1.30 MG/DL Estimat Glomerular Filtration Rate > 60 BUN/Creatinine Ratio 16 Glucose Level 101 70-105 MG/DL Calcium Level 9.4 8.5-10.1 MG/DL Corrected Calcium 9.3 8.5-10.1 MG/DL Total Bilirubin 0.6 0.1-1.0 MG/DL Aspartate Amino Transf (AST/SGOT) 25 5-34 U/L Alanine Aminotransferase (ALT/SGPT) 21 0-55 U/L Alkaline Phosphatase 89 40-136 U/L Troponin I < 0.30 <0.30 NG/ML Total Protein 7.6 6.4-8.2 GM/DL Albumin 4.1 3.2-4.5 GM/DL My Orders Orders - GUADALUPE PAN MD Ekg Tracing (03/21/18 12:58) Chest 1 View, Ap/Pa Only (03/21/18 12:58) Albuterol/Ipra Inhalation Soln (Duoneb I (03/21/18 13:00) Svn Small Volume Nebulizer (03/21/18 12:58) Comprehensive Metabolic Panel (03/21/18 14:08) Troponin I (03/21/18 14:08) Cbc With Automated Diff (03/21/18 14:08) Blood Culture (03/21/18 14:22) Urinalysis (03/21/18 14:22) Urine Culture (03/21/18 14:22) Saline Lock/Iv-Start (03/21/18 14:22) Saline Lock/Iv-Start (03/21/18 14:22) Vital Signs Adult Sepsis Patie Q15M (03/21/18 14:22) O2 (03/21/18 14:22) Remove Rings In Anticipation O (03/21/18 14:22) Lactic Acid Analyzer (03/21/18 14:22) Cefepime Injection (Maxipime Injection) (03/21/18 14:30) Medications Given in ED Current Medications Medications Dose Ordered Sig/Sami Route Start Time Stop Time Status Last Admin Dose Admin Albuterol/ Ipratropium 3 ml ONCE ONCE INH 03/21/18 13:00 03/21/18 13:01 DC 03/21/18 13:24 3 ML Cefepime HCl 1000 mg/Sodium Chloride 50 ml @ 100 mls/hr ONCE ONCE IV 03/21/18 14:30 03/21/18 14:59 DC 03/21/18 14:40 100 MLS/HR Vital Signs/I&O 03/21/18 13:24 Pulse Ox 95 O2 Delivery Room Air Capillary Refill : Departure Communication (Admissions) The chest x-ray shows a considerable change in the process as compared to 09/11 of this year. There is a capacity or consolidation in the left lower lobe. He is aware that his tumor has advanced. He had taken chemotherapy from August through January and since that time has been on immunotherapy. It is also known that he has involvement of ribs. I asked him and his what their plans had been relative to the inevitable advance of disease. They replied that they had been thinking of this rather considerably. He is relatively miserable now mostly as a function of pleuritic pain with respiration. He has had fever and sweats during the nights as well. Dr. Pinto had apparently placed him on an oral antibiotic that this had not changed the course of things. They would like to have a go at IV antibiotics and if there is no evidence of improvement to then moved to hospice status. This would appear to be reasonable. Impression Primary Impression: advanced small cell carcinoma of the lung. Additional Impression: left lower lobe pneumonia. Disposition: 09 ADMITTED INPATIENT Condition: Stable/Unchanged Admissions Decision to Admit Reason: Admit from ER (General) Decision to Admit/Date: Mar 21, 2018 Time/Decision to Admit Time: 14:19 Departure-Patient Inst. Referrals: NO,LOCAL PHYSICIAN (PCP) Primary Care Physician STEPHANIE BISHOP (Family) Primary Care Physician GUADALUPE PAN MD Mar 21, 2018 13:21
--- NOTE | 2018-03-21 13:36 | Diagnostic Imaging Report ---
INDICATION: History of lung cancer, pain in left lower chest. TECHNIQUE: Single view chest 1:11 PM. CORRELATION STUDY: 09/11/2017 FINDINGS: There is rather extensive consolidation about the left lower lung field. This occupies partly half of the left lower lung field. Upper lung field and right lung otherwise appearing generally clear. Heart is largely obscured by the consolidating process but appears to be generally stable. Mediastinal formation generally stable. Right IJ Juxhcw-b-Jsgu catheter unchanged, tip over the low SVC. IMPRESSION: 1. Rather extensive consolidation of the left lower half of the lung. This may reflect extensive consolidating pneumonia. Other process including hemorrhage or asymmetric edema could also get this appearance. Followup imaging is recommended. Dictated by: Dictated on workstation # [id number]
[2018-03-21 14:23] LABS: BASOPHILS % (AUTO) 0 % (0-10); EOSINOPHILS % (AUTO) 0 % (0-10); HEMATOCRIT 46 % (40-54); HEMOGLOBIN 15.8 G/DL (13.3-17.7); LYMPHOCYTES # (AUTO) 1.2 X 10^3 (1.0-4.0); LYMPHOCYTES % (AUTO) 13 % (12-44); MEAN CORPUSCULAR HEMOGLOBIN 31 PG (25-34); MEAN CORPUSCULAR HGB CONC 35 G/DL (32-36); MEAN CORPUSCULAR VOLUME 91 FL (80-99); MEAN PLATELET VOLUME 8.6 FL (7.4-10.4); MONOCYTES % (AUTO) 11 % (0-12); NEUTROPHILS % (AUTO) 75 % (42-75); PLATELET COUNT 206 10^3/uL (130-400); RED BLOOD COUNT 5.04 10^6/uL (4.35-5.85); RED CELL DISTRIBUTION WIDTH 13.7 % (10.0-14.5); WHITE BLOOD COUNT 9.3 10^3/uL (4.3-11.0)
[2018-03-21] MEDS ORDERED: CEFEPIME INJECTION 1,000 MG in NS (IVPB) 50 ML IV ONE (14:30)
[2018-03-21 14:33] LABS: ALANINE AMINOTRANSFERASE 21 U/L (0-55); ALBUMIN 4.1 GM/DL (3.2-4.5); ALKALINE PHOSPHATASE 89 U/L (40-136); BILIRUBIN,TOTAL 0.6 MG/DL (0.1-1.0); BUN/CREATININE RATIO 16; CALCIUM 9.4 MG/DL (8.5-10.1); CARBON DIOXIDE 19 MMOL/L (21-32); CHLORIDE 103 MMOL/L (98-107); CREATININE SERUM 0.85 MG/DL (0.60-1.30); GFR ESTIMATED > 60; GLUCOSE 101 MG/DL (70-105); SODIUM 135 MMOL/L (135-145); TOTAL PROTEIN 7.6 GM/DL (6.4-8.2)
[2018-03-21] MEDS ORDERED: morphine INJ 10 MG/ML 1ML (SYR OR VIAL) IVP ONE ×2 (15:30→19:45)
[2018-03-21 15:50] VITALS: BP 109/73
[2018-03-21] MEDS ORDERED: CATHETER FLUSH 10 ML SYR IV PRN (16:15)
[2018-03-21 16:20] VITALS: BP 122/72
[2018-03-21] MEDS ORDERED: IPRA3AMP31 NEB (16:22)
[2018-03-21] MEDS ORDERED: ZOLP5TAB7 PO (16:22)
[2018-03-21] MEDS ORDERED: ALBU18HF2 INH (16:22)
[2018-03-21] MEDS ORDERED: AZIT250T12 PO (16:22)
[2018-03-21] MEDS ORDERED: PROC5TAB9 PO (16:22)
[2018-03-21] MEDS ORDERED: APIX5TAB PO (16:22)
[2018-03-21] MEDS ORDERED: NAPR-915 PO (16:22)
[2018-03-21] MEDS ORDERED: BUDE10.2 INH (16:22)
[2018-03-21] MEDS: NS IV 1000 ML 1,000 ML IV SCH (16:26)
[2018-03-21] MEDS ORDERED: MORP15TA PO (16:29)
[2018-03-21] MEDS ORDERED: ONDA8TAB6 PO (16:29)
[2018-03-21] MEDS ORDERED: OXYC10TA7 PO (16:29)
[2018-03-21] MEDS ORDERED: CHOL5000 PO (16:29)
[2018-03-21] MEDS ORDERED: FLU QUADRIvalent (5+ YOA) 2018-2019 (AFLURIA) 0.5 ML IM ONE (17:00)
[2018-03-21] MEDS: RT-ALBUTEROL/IPRATROPIUM 3 ML (DUONEB) VIAL INH SCH ×2 (18:22→22:18)
[2018-03-21] MEDS: morphine INJ 10 MG/ML 1ML (SYR OR VIAL) IV PRN (18:36)
[2018-03-21 19:19] VITALS: BP 116/71
[2018-03-21] MEDS ORDERED: BENZONATATE 100 MG (TESSALON) CAPSULE PO PRN (20:15)
[2018-03-21] MEDS ORDERED: MELATONIN 3 MG TABLET PO PRN (20:15)
[2018-03-21] MEDS ORDERED: MILK OF MAGNESIA 400 MG/5 ML 30 ML UDC PO PRN (20:15)
[2018-03-21] MEDS ORDERED: ACETAMINOPHEN 500 MG TAB (TYLENOL) PO PRN (20:15)
[2018-03-21] MEDS ORDERED: ANTACID SUSP 30 ML UDC (MYLANTA) PO PRN (20:15)
[2018-03-21] MEDS ORDERED: ACETAMINOPHEN 325 MG TABLET PO PRN (20:30)
[2018-03-21] MEDS: HYDROcodone/APAP 5 MG/325 MG (LORTAB) TAB PO PRN (20:40)
[2018-03-21] MEDS: CEFEPIME 2 GM/NS 50 ML IVPB IV SCH ×2 (22:09)
[2018-03-22] VITALS (7 sets, daily range): BP systolic 102–126; BP diastolic 61–74
[2018-03-22] MEDS: NS IV 1000 ML 1,000 ML IV SCH ×3 (00:16→17:00)
[2018-03-22] MEDS: morphine INJ 10 MG/ML 1ML (SYR OR VIAL) IV PRN ×5 (00:16→21:21)
[2018-03-22] MEDS: RT-ALBUTEROL/IPRATROPIUM 3 ML (DUONEB) VIAL INH SCH ×6 (02:07→21:25)
[2018-03-22] MEDS: HYDROcodone/APAP 5 MG/325 MG (LORTAB) TAB PO PRN ×4 (05:19→21:21)
--- OUTSIDE RECORDS SUMMARY | 2018-03-22 05:44 | XMS REPORT | CCD ---
Author Author JOE GREY Unknown Address [address] [place] [address] Care Team Providers Care Collar Worker Name Role Phone HELGA OTTO Attphys R., MARIPOSA Cerna NASST R., SHOLA Rain NASST M., MARILYN NASST S., KIRK Marie NASST J., DEIDRE NASST Allergies Allergy Code Allergy Type Reaction Status CRESTOR 587909 Drug allergy NIGHT RHOADES Active ZOCOR 423842 Drug allergy MYOPATHY Active TENORMIN 508708 Drug allergy RASH Active PRAVACHOL 498700 Drug allergy NIGHTMARES Active OMEGA-3 FATTY ACIDS 4301 Drug allergy DYSPNEA; VOMITING; VOMITING; VOMITING Active Active Medications Medication Code Dose Units Frequency Route Modification Start Date/Time Coreg 3.125MG Oral Tablet 993215 3.125 MILLIGRAMS NEEDED ORAL 02/11/2017 13:11 Prescription Detail 3.125 MILLIGRAMS ORAL NEEDED Wellbutrin XL 150MG Oral Tablet, Extended Release, 24 HR 174977 150 MILLIGRAMS DAILY ORAL 02/11/2017 13:11 Prescription Detail 150 MILLIGRAMS ORAL DAILY Aspirin 81MG Oral Tablet, Chewable 856422 162 MILLIGRAMS DAILY WITH A MEAL BY MOUTH 02/11/2017 13:10 Prescription Detail 162 MILLIGRAMS BY MOUTH DAILY WITH A MEAL Celexa 20MG Oral Tablet 835076 20 MILLIGRAMS DAILY ORAL 10/22/2013 12:49 Prescription Detail 20 MILLIGRAMS ORAL DAILY Folbee 1MG-2.5MG-25MG Oral Tablet 167241 1 EACH DAILY ORAL 10/22/2013 12:49 Prescription Detail 1 EACH ORAL DAILY Orphenadrine Citrate 100MG Oral Tablet 198136 100 MILLIGRAMS TWO TIMES A DAY NEEDED ORAL 2013 12:49 Prescription Detail 100 MILLIGRAMS ORAL TWO TIMES A DAY NEEDED Problems Problem Code Start Date Resolved Date Status Acute chest pain 479044291 02/11/2017 Active Procedures Procedure Code Procedure Type Date CX CHEST [address] 02/11/2017 CPK WITH CKMB 787583080 [facility] 02/11/2017 TROPONIN-I ADV 656653572 SNOMED CT 02/11/2017 TROPONIN-I ADV 620641684 [facility] CT 02/11/2017 CPK WITH CKMB [id number] [facility] CT 02/11/2017 CBC W/ AUTO DIFF (RFLX MAN DIFF IF IND) 1340856 [facility] CT 02/10/2017 TROPONIN-I ADV 121131245 [facility] CT 02/10/2017 COMPREHENSIVE METABOLIC PANEL 549621685 [facility] 2016 ^CKMB 26020902 SNOMED CT 02/11/2017 ^CKMB 17322453 [facility] 02/11/2017 ^CBC W/AUTO DIFF [id number] [facility] CT 02/10/2017 Results COMPREHENSIVE METABOLIC PANEL - Collect Date/Time: 02/10/2017 22:45 Test Name Code Test Result Test Units Test Ref Range GLUCOSE 2345-7 95 MG/DL L=70 H=100 SODIUM 2951-2 141 MEQ/L L=135 H=148 POTASSIUM 2823-3 3.7 MEQ/L L=3.5 H=5.3 CHLORIDE 2075-0 107 MEQ/L L=96 H=110 CO2 2028-9 20 MEQ/L L=22 H=29 BUN 3094-0 11 MG/DL L=8 H=22 CREATININE 2160-0 0.8 MG/DL L=0.6 H=1.6 SGOT/AST 1920-8 21 IU/L L=10 H=40 SGPT/ALT 1742-6 22 IU/L L=8 H=54 ALK PHOS 6768-6 86 IU/L L=35 H=115 TOTAL PROTEIN 2885-2 8.1 G/DL L=5.5 H=8.5 ALBUMIN 1751-7 4.7 G/DL L=3.1 H=5.4 TOTAL BILI 1975-2 0.4 MG/DL L=0.0 H=1.5 CALCIUM 52258-0 9.5 MG/DL L=8.2 H=10.6 AGE 61 yrs GFR NonAA 99 GFR AA 120 eGFR >60 N/A eGFR AA* >60 N/A CBC W/ AUTO DIFF (RFLX MAN DIFF IF IND) - Collect Date/Time: 02/10/2017 22:45 Test Name Code Test Result Test Units Test Ref Range WBC 32722-6 7.3 TH/CMM L=4.5 H=10.8 RBC 789-8 5.87 ML/CMM L=4.70 H=6.10 HGB 718-7 18.0 G/DL L=14.0 H=18.0 HCT 4544-3 51.6 % L=42.0 H=52.0 MCV 88 FL L=81 H=99 MCH 30.7 PG L=27.0 H=33.0 MCHC 34.9 G/DL L=31.0 H=36.0 RDW SD 43 FL L=36 H=50 RDW CV 13.3 % L=0.0 H=14.8 MPV 8.3 FL L=9.3 H=12.5 PLT 777-3 227 TH/CMM L=130 H=440 NRBC# 0.00 TH/CMM L=0.00 H=0.00 NRBC% 0.0 /100WBC L=0.0 H=2.0 %NEUT 50.1 % %LYMP 39.6 % %MONO 7.2 % %EOS 2.0 % %BASO 0.7 % #NEUT 3.67 TH/CMM L=2.10 H=8.20 #LYMP 2.90 TH/CMM L=0.90 H=5.20 #MONO 0.53 TH/CMM L=0.16 H=1.00 #EOS 0.15 TH/CMM L=0.00 H=0.80 #BASO 0.05 TH/CMM L=0.00 H=0.20 MANUAL DIFF NOT IND N/A CPK WITH CKMB - Collect Date/Time: 02/11/2017 10:40 Test Name Code Test Result Test Units Test Ref Range CPK 2157-6 73 IU/L L=0 H=[place] [address]-3 1.1 NG/ML L=0.0 H=9.5 INDEX 65473-9 1.5 % L=0.0 H=3.5 CPK WITH CKMB - Collect Date/Time: 02/11/2017 04:35 Test Name Code Test Result Test Units Test Ref Range CPK 2157-6 84 IU/L L=0 H=235 [place] [address]-8 1.2 NG/ML L=0.0 H=9.5 INDEX 24033-9 1.4 % L=0.0 H=3.5 TROPONIN-I ADV - Collect Date/Time: 02/11/2017 10:40 Test Name Code Test Result Test Units [place] [address]-1 <0.04 ng/mL L=0.04 H= 0.40 TROPONIN-I ADV - Collect Date/Time: 02/11/2017 04:35 Test Name Code Test Result Test Units Test [place] [address]-3 <0.04 ng/mL L=0.04 H= 0.40 TROPONIN-I ADV - Collect Date/Time: 02/10/2017 22:45 Test Name Code Test Result Test Units [place] [address]-7 <0.04 ng/mL L=0.04 H= 0.40 Function Status Unknown or Not Available. History of Immunizations Unknown or Not Available. Plan of Treatment Unknown or Not Available. Social History Smoking Status Code Start Date End Date Current every day smoker 791225326 Vital Signs Vital Sign Value Unit Date/Time Recent/Initial? Weight Measured 208 [lb_av] 02/11/2017 02:39 Initial VS BMI (Body Mass Index) 28.21 kg/m2 02/11/2017 02:59 Most Recent VS Weight Measured 208 [lb_av] 02/11/2017 02:59 Most Recent VS Height 72 [in_i] 02/11/2017 02:59 Most Recent VS BSA (Body Surface Area) 2.19 m2 02/11/2017 02:59 Most Recent VS BP Systolic 117 mm[Hg] 02/11/2017 02:59 Initial VS BP Diastolic 80 mm[Hg] 02/11/2017 02:59 Initial VS Respiratory Rate 18 /min 02/11/2017 02:59 Initial VS Heart Rate 73 /min 02/11/2017 02:59 Initial VS O2 % BldC Oximetry 96 % 02/11/2017 02:59 Initial VS Body Temperature 97.2 [degF] 02/11/2017 02:59 Initial VS BP Systolic 117 mm[Hg] 02/11/2017 10:50 Most Recent VS BP Diastolic 74 mm[Hg] 02/11/2017 10:50 Most Recent VS Respiratory Rate 18 /min 02/11/2017 10:50 Most Recent VS Heart Rate 69 /min 02/11/2017 10:50 Most Recent VS O2 % BldC Oximetry 95 % 02/11/2017 10:50 Most Recent VS Body Temperature 97.5 [degF] 02/11/2017 10:50 Most Recent VS Function Status Unknown or Not Available. Goals Unknown or Not Available. ASSESSMENTS Unknown or Not Available. Health Concerns Section Unknown or Not Available.
--- OUTSIDE RECORDS SUMMARY | 2018-03-22 05:45 | XMS REPORT ---
Author Author Laura Ramsay [facility] Address [address] [place], [place] [id number] Care Team Providers Care Machine Setter Name Role Phone Laura Ramsay PCP Laura Ramsay PreferredProvider Allergies and Adverse Reactions Name Reaction Notes Tenormin Pravachol Zocor Crestor [place] 3 Plan of Treatment Not available. Medications Active Name Start Date Estimated Completion Date SIG Comments citalopram 20 mg oral tablet take 1 tablet (20 mg) by oral route once daily Stool Softener 100 mg oral capsule take 2 capsules (200 mg) by oral route once daily at bedtime as needed Coreg 3.125 mg oral tablet take 1 tablet by oral route 2 times a day as needed omeprazole 20 mg oral capsule,delayed release(DR/EC) take 1 capsule by oral route daily as needed gabapentin 600 mg oral tablet take 1 tablet by oral route As needed Folbee 2.5-25-1 mg oral tablet 08/19/2017 take 1 tablet by oral route once daily for 90 days Eliquis 5 mg oral tablet 10/14/2017 01/12/2018 take 1 tablet (5 mg) by oral route 2 times per day for 30 days naproxen 500 mg oral tablet 11/05/2017 05/04/2018 take 1 tablet (500 mg) by oral route 2 times per day with food for 90 days orphenadrine citrate 100 mg oral tablet extended release 11/05/2017 02/03/2018 take 1 tablet by oral route twice daily for muscle spasms bupropion HCl 100 mg oral tablet extended release 12 hr 11/25/2017 03/25/2018 take 2 tablet (100 mg) by oral route 2 times per day Name Start Date Expiration Date SIG Comments oxycodone 5 mg oral tablet 07/09/2017 07/23/2017 take 1 tablet (5 mg) by oral route every 6 hours as needed for pain amoxicillin 875 mg oral tablet 10/28/2017 11/07/2017 take 1 tablet (875 mg) by oral route every 12 hours for 10 days Discontinued Name Start Date Discontinued Date [...] Active Adenofibromatous hypertrophy of prostate Active 06/29/2016 High risk medication use Active 10/28/2017 Adenocarcinoma of lung Active 10/28/2017 Other acute pulmonary embolism without acute cor pulmonale Active 11/11/2017 Adenocarcinoma of left lung Active 11/11/2017 Adenocarcinoma of right lung Active 11/11/2017 Vital Signs Date Time BP-Sys(mm[Hg] BP-Marilynn(mm[Hg]) HR(bpm) RR(rpm) Temp WT HT HC BMI BSA BMI Percentile O2 Sat(%) 10/28/2017 8:59:00 AM 118 mmHg 68 mmHg 78 bpm 18 rpm 98.1 F 221.5 lbs 72 in 30.0405 kg/m 2.2592 m 97 % 09/09/2017 4:31:00 PM 132 mmHg 70 mmHg [...] Reviewed 09/09/2017 12:00 AM ROUTINE VENIPUNCTURE Reviewed 09/16/2017 12:00 AM COLLECTION VENOUS BLOOD VENIPUNCTURE Reviewed 09/16/2017 12:00 AM METABOLIC PANEL TOTAL CA Reviewed 09/23/2017 12:00 AM COLLECTION VENOUS BLOOD VENIPUNCTURE Reviewed 09/23/2017 12:00 AM METABOLIC PANEL TOTAL CA Reviewed 09/23/2017 12:00 AM COMPLETE CBC W/AUTO DIFF WBC Reviewed 09/30/2017 12:00 AM COLLECTION VENOUS BLOOD VENIPUNCTURE Reviewed 09/30/2017 12:00 AM METABOLIC PANEL TOTAL CA Reviewed 09/30/2017 12:00 AM COMPLETE CBC W/AUTO DIFF WBC Reviewed 10/07/2017 12:00 AM COLLECTION VENOUS BLOOD VENIPUNCTURE Reviewed 10/07/2017 12:00 AM METABOLIC PANEL TOTAL CA Reviewed 10/14/2017 12:00 AM COLLECTION VENOUS BLOOD VENIPUNCTURE Reviewed 10/14/2017 12:00 AM METABOLIC PANEL TOTAL CA Reviewed 10/21/2017 12:00 AM COLLECTION VENOUS BLOOD VENIPUNCTURE Reviewed 10/21/2017 12:00 AM METABOLIC PANEL TOTAL CA Reviewed 10/21/2017 12:00 AM COMPLETE CBC W/AUTO DIFF WBC Reviewed 10/28/2017 12:00 AM METABOLIC PANEL TOTAL CA Reviewed 10/28/2017 12:00 AM COMPLETE CBC W/AUTO DIFF WBC Reviewed 10/28/2017 12:00 AM ROUTINE VENIPUNCTURE Reviewed 11/11/2017 12:00 AM COLLECTION VENOUS BLOOD VENIPUNCTURE Reviewed 11/11/2017 12:00 AM METABOLIC PANEL TOTAL CA Reviewed 11/05/2017 12:00 AM COLLECTION VENOUS BLOOD VENIPUNCTURE Reviewed 11/05/2017 12:00 AM METABOLIC PANEL TOTAL CA Reviewed 11/18/2017 12:00 AM COLLECTION VENOUS BLOOD VENIPUNCTURE Reviewed 11/18/2017 12:00 AM METABOLIC PANEL TOTAL CA Reviewed 11/18/2017 12:00 AM COMPLETE CBC W/AUTO DIFF WBC Reviewed 11/25/2017 12:00 AM COLLECTION VENOUS BLOOD VENIPUNCTURE Reviewed 11/25/2017 12:00 AM METABOLIC PANEL TOTAL CA Reviewed 11/25/2017 12:00 AM COMPLETE CBC W/AUTO DIFF WBC Reviewed 09/09/2017 12:00 AM METABOLIC PANEL TOTAL CA Reviewed 09/09/2017 12:00 AM COMPLETE CBC W/AUTO DIFF WBC Reviewed 09/09/2017 12:00 AM DARIUSJ IMPLNTD VENOUS ACCESS DRUG DELIVERY SYST Reviewed 12/23/2017 12:00 AM COLLECTION VENOUS BLOOD VENIPUNCTURE Reviewed 12/23/2017 12:00 AM METABOLIC PANEL TOTAL CA Returned 12/23/2017 12:00 AM COMPLETE CBC W/AUTO DIFF WBC Returned 11/03/2013 12:00 AM DIAGNOSTIC COLONOSCOPY Reviewed [...] 0.12 #BASO 0.03 MANUAL DIFF NOT IND 09/09/2017 9:10 AM GLUCOSE 117.0 mg/dLSODIUM 135.0 mmol/LPOTASSIUM 3.90 mmol/ LCHLORIDE 102.0 mmol/LCO2 24.0 mmol/LBUN 15.0 mg/dLCREATININE 0.80 mg/dLCALCIUM 8.70 mg/dLAGE 62 GFR NonAA 98 GFR AA 119 eGFR >60 mL/min/1.73meGFR AA* >60 WBC 6.4 RBC 4.55 HGB 14.0 g/dLHCT 41.60 %MCV 91.0 fLMCH 30.80 pgMCHC 33.70 g/ dLRDW SD 46 RDW CV 13.70 %MPV 9.0 fLPLT 162 NRBC# 0.00 NRBC% 0.0 %NEUT 71.80 %% LYMP 22.20 %%MONO 3.40 %%EOS 0.50 %%BASO 0.50 %#NEUT 4.59 #LYMP 1.42 #MONO 0.22 #EOS 0.03 #BASO 0.03 MANUAL DIFF NOT IND 09/16/2017 9:10 AM WBC 3.0 RBC 4.59 HGB 14.0 g/dLHCT 41.50 %MCV 90.0 fLMCH 30.50 pgMCHC 33.70 g/dLRDW SD 46 RDW CV 14.10 %MPV 8.80 fLPLT 317 NRBC# 0.00 NRBC% 0.0 %NEUT 33.90 %%LYMP 49.50 %%MONO 11.60 %%EOS 3.0 %%BASO 1.30 %#NEUT 1.03 #LYMP 1.50 #MONO 0.35 #EOS 0.09 #BASO 0.04 MANUAL DIFF NOT IND GLUCOSE 100.0 mg/dLSODIUM 137.0 mmol/LPOTASSIUM 4.40 mmol/LCHLORIDE 109.0 mmol/LCO2 19.0 mmol/LBUN 18.0 mg/dLCREATININE 1.0 mg/dLCALCIUM 8.60 mg/dLAGE 62 GFR NonAA 76 GFR AA 92 eGFR >60 mL/min/1.73meGFR AA* >60 09/23/2017 9:37 AM WBC 4.6 RBC 4.65 HGB 14.40 g/dLHCT 42.80 %MCV 92.0 fLMCH 31.0 pgMCHC 33.60 g/dLRDW SD 51 RDW CV 15.60 %MPV 8.50 fLPLT 357 NRBC# 0.00 NRBC % 0.0 %NEUT 44.40 %%LYMP 37.10 %%MONO 14.70 %%EOS 2.0 %%BASO 0.70 %#NEUT 2.02 # LYMP 1.69 #MONO 0.67 #EOS 0.09 #BASO 0.03 MANUAL DIFF NOT IND GLUCOSE 119.0 mg/ dLSODIUM 138.0 mmol/LPOTASSIUM 4.40 mmol/LCHLORIDE 107.0 mmol/LCO2 23.0 mmol/ LBUN 14.0 mg/dLCREATININE 0.90 mg/dLCALCIUM 9.0 mg/dLAGE 62 GFR NonAA 86 GFR AA 104 eGFR >60 mL/min/1.73meGFR AA* >60 09/30/2017 8:55 AM WBC 9.9 RBC 4.61 HGB 14.30 g/dLHCT 42.10 %MCV 91.0 fLMCH 31.0 pgMCHC 34.0 g/dLRDW SD 50 RDW CV 15.0 %MPV 8.90 fLPLT 232 NRBC# 0.00 NRBC% 0.0 %NEUT 84.90 %%LYMP 11.90 %%MONO 1.20 %%EOS 0.80 %%BASO 0.30 %#NEUT 8.40 # LYMP 1.18 #MONO 0.12 #EOS 0.08 #BASO 0.03 MANUAL DIFF NOT IND GLUCOSE 96.0 mg/ dLSODIUM 135.0 mmol/LPOTASSIUM 4.10 mmol/LCHLORIDE 102.0 mmol/LCO2 24.0 mmol/ LBUN 20.0 mg/dLCREATININE 0.80 mg/dLCALCIUM 8.70 mg/dLAGE 62 GFR NonAA 98 GFR AA 119 eGFR >60 mL/min/1.73meGFR AA* >60 10/07/2017 9:00 AM WBC 3.9 RBC 4.52 HGB 14.10 g/dLHCT 42.10 %MCV 93.0 fLMCH 31.20 pgMCHC 33.50 g/dLRDW SD 54 RDW CV 15.90 %MPV 9.20 fLPLT 207 NRBC# 0.00 NRBC% 0.0 %NEUT 47.70 %%LYMP 37.80 %%MONO 11.40 %%EOS 1.80 %%BASO 1.0 %#NEUT 1.84 #LYMP 1.46 #MONO 0.44 #EOS 0.07 #BASO 0.04 MANUAL DIFF NOT IND GLUCOSE 119.0 mg/dLSODIUM 140.0 mmol/LPOTASSIUM 3.90 mmol/LCHLORIDE 106.0 mmol/LCO2 23.0 mmol/LBUN 12.0 mg/dLCREATININE 0.90 mg/dLCALCIUM 9.20 mg/dLAGE 62 GFR NonAA 86 GFR AA 104 eGFR >60 mL/min/1.73meGFR AA* >60 10/14/2017 8:55 AM WBC 3.9 RBC 4.67 HGB 14.60 g/dLHCT 43.60 %MCV 93.0 fLMCH 31.30 pgMCHC 33.50 g/dLRDW SD 56 RDW CV 16.40 %MPV 8.50 fLPLT 273 NRBC# 0.00 NRBC% 0.0 %NEUT 41.0 %%LYMP 42.30 %%MONO 13.10 %%EOS 2.80 %%BASO 0.50 %#NEUT 1.59 #LYMP 1.64 #MONO 0.51 #EOS 0.11 #BASO 0.02 MANUAL DIFF NOT IND GLUCOSE 114.0 mg/dLSODIUM 139.0 mmol/LPOTASSIUM 4.30 mmol/LCHLORIDE 108.0 mmol/LCO2 22.0 mmol/LBUN 15.0 mg/dLCREATININE 0.80 mg/dLCALCIUM 9.0 mg/dLAGE 62 GFR NonAA 98 GFR AA 119 eGFR >60 mL/min/1.73meGFR AA* >60 10/21/2017 8:50 AM GLUCOSE 101.0 mg/dLSODIUM 136.0 mmol/LPOTASSIUM 4.20 mmol/ LCHLORIDE 103.0 mmol/LCO2 23.0 mmol/LBUN 20.0 mg/dLCREATININE 0.80 mg/dLCALCIUM 9.30 mg/dLAGE 62 GFR NonAA 98 GFR AA 119 eGFR 98 eGFR AA* >60 WBC 8.7 RBC 4.59 HGB 14.50 g/dLHCT 42.10 %MCV 92.0 fLMCH 31.60 pgMCHC 34.40 g/dLRDW SD 52 RDW CV 15.30 %MPV 9.0 fLPLT 222 NRBC# 0.00 NRBC% 0.0 %NEUT 81.50 %%LYMP 15.30 %%MONO 1.0 %%EOS 1.20 %%BASO 0.30 %#NEUT 7.06 #LYMP 1.33 #MONO 0.09 #EOS 0.10 #BASO 0.03 MANUAL DIFF SEE BELOW SEGS 79 BANDS 2 LYMPHS 19 10/28/2017 9:00 AM GLUCOSE 150.0 mg/dLSODIUM 136.0 mmol/LPOTASSIUM 4.10 mmol/ LCHLORIDE 107.0 mmol/LCO2 23.0 mmol/LBUN 24.0 mg/dLCREATININE 0.80 mg/dLCALCIUM 8.80 mg/dLAGE 62 GFR NonAA 98 GFR AA 119 eGFR 98 eGFR AA* >60 WBC 3.6 RBC 4.42 HGB 13.90 g/dLHCT 41.90 %MCV 95.0 fLMCH 31.40 pgMCHC 33.20 g/dLRDW SD 55 RDW CV 15.90 %MPV 9.40 fLPLT 151 NRBC# 0.00 NRBC% 0.0 %NEUT 53.0 %%LYMP 34.80 %%MONO 9.90 %%EOS 1.10 %%BASO 0.60 %#NEUT 1.92 #LYMP 1.26 #MONO 0.36 #EOS 0.04 #BASO 0.02 MANUAL DIFF SEE BELOW SEGS 64 LYMPHS 34 MONOS 3 11/05/2017 10:00 AM GLUCOSE 114.0 mg/dLSODIUM 136.0 mmol/LPOTASSIUM 4.50 mmol/ LCHLORIDE 106.0 mmol/LCO2 20.0 mmol/LBUN 16.0 mg/dLCREATININE 1.0 mg/dLCALCIUM 9.50 mg/dLAGE 62 GFR NonAA 76 GFR AA 92 eGFR 76 eGFR AA* >60 WBC 3.4 RBC 4.93 HGB 15.80 g/dLHCT 46.70 %MCV 95.0 fLMCH 32.0 pgMCHC 33.80 g/dLRDW SD 57 RDW CV 16.40 %MPV 9.10 fLPLT 195 NRBC# 0.00 NRBC% 0.0 %NEUT 43.20 %%LYMP 41.60 %%MONO 12.50 %%EOS 1.50 %%BASO 0.60 %#NEUT 1.49 #LYMP 1.43 #MONO 0.43 #EOS 0.05 #BASO 0.02 MANUAL DIFF NOT IND 11/11/2017 9:00 AM GLUCOSE 108.0 mg/dLSODIUM 136.0 mmol/LPOTASSIUM 4.0 mmol/ LCHLORIDE 103.0 mmol/LCO2 21.0 mmol/LBUN 20.0 mg/dLCREATININE 0.80 mg/dLCALCIUM 9.30 mg/dLAGE 62 GFR NonAA 98 GFR AA 119 eGFR 98 eGFR AA* >60 WBC 3.2 RBC 4.65 HGB 15.0 g/dLHCT 43.50 %MCV 94.0 fLMCH 32.30 pgMCHC 34.50 g/dLRDW SD 53 RDW CV 15.60 %MPV 8.80 fLPLT 256 NRBC# 0.00 NRBC% 0.0 %NEUT 53.90 %%LYMP 40.50 %%MONO 2.50 %%EOS 1.90 %%BASO 0.60 %#NEUT 1.70 #LYMP 1.28 #MONO 0.08 #EOS 0.06 #BASO 0.02 SEGS 51 LYMPHS 46 MONOS 2 EOS 1.0 %ATYP LYMPHS FEW % 11/18/2017 9:05 AM WBC 2.4 RBC 4.50 HGB 14.40 g/dLHCT 42.80 %MCV 95.0 fLMCH 32.0 pgMCHC 33.60 g/dLRDW SD 56 RDW CV 16.0 %MPV 9.30 fLPLT 152 NRBC# 0.00 NRBC % 0.0 %NEUT 36.50 %%LYMP 43.50 %%MONO 18.0 %%EOS 0.80 %%BASO 0.80 %#NEUT 0.87 # LYMP 1.04 #MONO 0.43 #EOS 0.02 #BASO 0.02 MANUAL DIFF SEE BELOW SEGS 45 BANDS 4 LYMPHS 39 MONOS 11 EOS 1.0 %ANISO 2+ GLUCOSE 105.0 mg/dLSODIUM 137.0 mmol/ LPOTASSIUM 4.30 mmol/LCHLORIDE 106.0 mmol/LCO2 20.0 mmol/LBUN 14.0 mg/ dLCREATININE 0.90 mg/dLCALCIUM 9.20 mg/dLAGE 62 GFR NonAA 86 GFR AA 104 eGFR 86 eGFR AA* >60 11/25/2017 9:00 AM GLUCOSE 121.0 mg/dLSODIUM 138.0 mmol/LPOTASSIUM 4.20 mmol/ LCHLORIDE 107.0 mmol/LCO2 21.0 mmol/LBUN 16.0 mg/dLCREATININE 0.90 mg/dLCALCIUM 9.20 mg/dLAGE 62 GFR NonAA 86 GFR AA 104 eGFR 86 eGFR AA* >60 WBC 3.0 RBC 4.79 HGB 15.30 g/dLHCT 45.90 %MCV 96.0 fLMCH 31.90 pgMCHC 33.30 g/dLRDW SD 57 RDW CV 15.90 %MPV 8.80 fLPLT 188 NRBC# 0.00 NRBC% 0.0 %NEUT 25.90 %%LYMP 50.70 %%MONO 21.0 %%EOS 1.0 %%BASO 0.70 %#NEUT 0.78 #LYMP 1.52 #MONO 0.63 #EOS 0.03 #BASO 0.02 MANUAL DIFF SEE BELOW SEGS 29 LYMPHS 47 MONOS 21 EOS 3.0 %MACRO 1+ ANISO 2 + HYPO 1+ History Of Immunizations Not available. History of Past Illness Name Date of Onset Comments Hyperlipidemia Cardiomyopathy Post viral Major Depression (Recurrent) Gastroesophageal reflux disease (GERD) Degenerative joint disease Osteoarthritis Neuropathy SVT Glucose Intolerance Hypertension Adenofibromatous hypertrophy of prostate 06/29/2016 High risk medication use 10/28/2017 Adenocarcinoma of lung 10/28/2017 Other acute pulmonary embolism without acute cor pulmonale 11/11/2017 Adenocarcinoma of left lung 11/11/2017 Adenocarcinoma of right lung 11/11/2017 Acute esophagitis Nov 03 2013 11:12AM Colon [...] metastatic to mediastinum Jul 08 2017 4:56PM Dyspnea Sep 09 2017 4:33PM Chest pain Sep 09 2017 4:33PM Carcinoma, lung, right Sep 09 2017 4:33PM Adenocarcinoma of bronchus, unspecified laterality Sep 16 2017 10:27AM Adenocarcinoma of bronchus, unspecified laterality Sep 23 2017 10:26AM Adenocarcinoma of bronchus, unspecified laterality Sep 30 2017 8:56AM Adenocarcinoma of bronchus, unspecified laterality Oct 07 2017 9:02AM Adenocarcinoma of bronchus, unspecified laterality Oct 14 2017 8:52AM High risk medication use Oct 14 2017 8:52AM Adenocarcinoma of bronchus, unspecified laterality Oct 21 2017 8:56AM High risk medication use Oct 21 2017 8:56AM Acute bronchitis, unspecified organism Oct 28 2017 9:00AM Purulent rhinitis Oct 28 2017 9:00AM Adenocarcinoma of right lung Oct 28 2017 9:00AM High risk medication use Oct 28 2017 9:00AM High risk medication use Nov 05 2017 10:01AM High risk medication use Nov 11 2017 8:58AM Benign essential HTN Oct 28 2017 9:00AM Adenocarcinoma of left lung Oct 28 2017 9:00AM Other acute pulmonary embolism without acute cor pulmonale Oct 28 2017 9: 00AM Adenocarcinoma of left lung Nov 11 2017 8:58AM Adenocarcinoma of right lung Nov 11 2017 8:58AM Other acute pulmonary embolism without acute cor pulmonale Nov 11 2017 8: 58AM Adenocarcinoma of left lung Nov 05 2017 10:01AM Adenocarcinoma of right lung Nov 05 2017 10:01AM Other acute pulmonary embolism without acute cor pulmonale Nov 05 2017 10: 01AM High risk medication use Nov 18 2017 9:15AM Adenocarcinoma of left lung Nov 18 2017 9:15AM Adenocarcinoma of right lung Nov 18 2017 9:15AM Other acute pulmonary embolism without acute cor pulmonale Nov 18 2017 9: 15AM High risk medication use Nov 25 2017 9:03AM Adenocarcinoma of left lung Nov 25 2017 9:03AM Adenocarcinoma of right lung Nov 25 2017 9:03AM Other acute pulmonary embolism without acute cor pulmonale Nov 25 2017 9: 03AM Adenocarcinoma of bronchus, left Sep 09 2017 9:13AM Adenocarcinoma of bronchus, right Sep 09 2017 9:13AM High risk medication use Dec 23 2017 8:29AM Adenocarcinoma of left lung Dec 23 2017 8:29AM Adenocarcinoma of right lung Dec 23 2017 8:29AM Other acute pulmonary embolism without acute cor pulmonale Dec 23 2017 8: 29AM Payers Insurance Name Company Name Plan Name Plan Number Policy Number Policy Group Number Start Date [id number] N/A Medicare RHC Medicare RHC [id number] N/A Medicare Part A Medicare - Lab/Xray [id number] N/A Medicare Part B Medicare Secondary [id number] N/A History of Encounters Visit Date Visit Type Provider 12/23/2017 Laboratory Laura Croft Erinbrookengin FARMWORKER RICE 11/25/2017 Laboratory Laura Croft Swebrookengin FARMWORKER RICE 11/18/2017 Laboratory Laura Croft Swebrookengin FARMWORKER RICE 11/11/2017 Laboratory Laura Croft Swebrookengin FARMWORKER RICE 11/05/2017 Laboratory Laura Croft Swearengin FARMWORKER RICE 10/28/2017 Office visit Laura Croft Erinbrookengin FARMWORKER RICE 10/21/2017 Laboratory Laura Croft Swebrookengin FARMWORKER RICE 10/14/2017 Laboratory Laura Crotf Swebrookengin FARMWORKER RICE 10/07/2017 Laboratory Laura Croft Swearengin FARMWORKER RICE 09/30/2017 Laboratory Laura Croft Swearengin FARMWORKER RICE 09/23/2017 Laboratory Laura Croft Swearengin FARMWORKER RICE 09/16/2017 Laboratory Laura Croft Swebrookengin FARMWORKER RICE 09/09/2017 Office visit Laura Ramsay FARMWORKER RICE 09/09/2017 Hospital Bishop Nino MD 09/09/2017 Laboratory Laura Ramsay FARMWORKER RICE 07/08/2017 Office visit Laura Ramsay FARMWORKER RICE 07/03/2017 Office visit Laura Ramsay FARMWORKER RICE 06/27/2017 Office visit Laura Ramsay FARMWORKER RICE 06/12/2017 Office visit Laura Ramsay FARMWORKER RICE 02/11/2017 [facility] Bishop Nino MD 02/11/2017 [facility] Tho Thornton MD 02/10/2017 [facility] Bishop Nino MD 06/29/2016 Office visit Roberta Jones MD 04/09/2016 [facility] Roberta Jones MD 03/21/2016 Office visit Roberta Jones MD 09/18/2015 [facility] Bishop Nino MD 02/08/2015 [facility] Bishop Nino MD 11/05/2013 [facility] Sebastian Keys MD 11/03/2013 Office visit Sebastian Keys MD 10/22/2013 [facility] Bishop Nino MD 08/24/2009 Laboratory Anne Lew MD
--- OUTSIDE RECORDS SUMMARY | 2018-03-22 05:46 | XMS REPORT ---
Author Author Laura Ramsay [facility] Address [address] [place], [place] [id number] Care Team Providers Care Word Processing Machine Operator Name Role Phone Laura Ramsay PCP Laura Ramsay PreferredProvider Allergies and Adverse Reactions Name Reaction Notes Tenormin Pravachol Zocor Crestor [place] 3 Plan of Treatment Not available. Medications [...] W/AUTO DIFF WBC Reviewed 09/09/2017 12:00 AM RUFUSAJ IMPLNTD VENOUS ACCESS DRUG DELIVERY SYST Reviewed [...] of bronchus, right Sep 09 2017 9:13AM Payers Insurance Name Company Name Plan Name Plan Number Policy Number Policy Group Number Start Date BCBS [facility] [id number] N/A Medicare RHC Medicare RHC [id number] N/A Medicare Part A Medicare - Lab/Xray [id number] N/A Medicare Part B Medicare Secondary [id number] N/A History of Encounters Visit Date Visit Type Provider 11/25/2017 Laboratory Laura Croft Erinbrookengin SCOOP OPERATOR 11/18/2017 Laboratory Laura Croft Swebrookengin SCOOP OPERATOR 11/11/2017 Laboratory Laura Croft Swebrookengin SCOOP OPERATOR 11/05/2017 Laboratory Laura Croft Swebrookengin SCOOP OPERATOR 10/28/2017 Office visit Laura Lopezngin SCOOP OPERATOR 10/21/2017 Laboratory Laura Croft Swebrookengin SCOOP OPERATOR 10/14/2017 Laboratory Laura Croft Swebrookengin SCOOP OPERATOR 10/07/2017 Laboratory Laura Croft Swebrookengin SCOOP OPERATOR 09/30/2017 Laboratory Laura Croft Swebrookengin SCOOP OPERATOR 09/23/2017 Laboratory Laura Croft Swebrookengin SCOOP OPERATOR 09/16/2017 Laboratory Laura Croft Swebrookengin SCOOP OPERATOR 09/09/2017 Office visit Laura Croft Erinbrookengin SCOOP OPERATOR 09/09/2017 [facility] Bishop Nino MD 09/09/2017 Laboratory Laura Croft Erinbrookengin SCOOP OPERATOR 07/08/2017 Office visit Laura Croft Erinbrookengin SCOOP OPERATOR 07/03/2017 Office visit Laura Croft Erinbrookengin SCOOP OPERATOR 06/27/2017 Office visit Laura Croft Erinbrookengin SCOOP OPERATOR 06/12/2017 Office visit Laura Croft Johnngstanford SCOOP OPERATOR 02/11/2017 [facility] Bishop Nino MD 02/11/2017 [facility] Tho Thornton MD 02/10/2017 [facility] Bishop Nino MD 06/29/2016 Office visit Roberta Jones MD 04/09/2016 [facility] Roberta Jones MD 03/21/2016 Office visit Roberta Jones MD 09/18/2015 [facility] Bishop Nino MD 02/08/2015 [facility] Bishop Nino MD 11/05/2013 [facility] Sebastian Keys MD 11/03/2013 Office visit Sebastian Keys MD 10/22/2013 [facility] Bishop Nino MD 08/24/2009 Laboratory Anne Lew MD
--- OUTSIDE RECORDS SUMMARY | 2018-03-22 05:47 | XMS REPORT ---
Author Author Laura Ramsay [facility] Address [address] [place], [place] [id number] Care Team Providers Care Dot Etcher Apprentice Name Role Phone Laura Ramsay PCP Laura Ramsay PreferredProvider Allergies and Adverse Reactions Name Reaction Notes Tenormin Pravachol Zocor Crestor [place] 3 Plan of Treatment Planned Activity Comments Planned Date Planned Time Plan/Goal BMP 11/11/2017 12:00 AM CBC W/ AUTO DIFF (RFLX MAN DIFF IF IND). 11/11/2017 12:00 AM Medications Active Name Start Date Estimated Completion Date SIG Comments bupropion HCl 100 mg oral tablet extended release take 1 tablet (100 mg ) by oral route 2 times per day citalopram 20 mg oral tablet take 1 [...] oral route twice daily for muscle spasms Name Start Date Expiration Date SIG Comments [...] Active 10/28/2017 Adenocarcinoma of lung Active 10/28/2017 Vital Signs Date Time BP-Sys(mm[Hg] BP-Marilynn(mm[Hg]) HR(bpm) [...] W/AUTO DIFF WBC Reviewed 09/09/2017 12:00 AM IRRIGAJ IMPLNTD VENOUS ACCESS DRUG DELIVERY SYST Reviewed 09/16/2017 12:00 AM COLLECTION VENOUS BLOOD [...] 10/21/2017 12:00 AM METABOLIC PANEL TOTAL CA Returned 10/21/2017 12:00 AM COMPLETE CBC W/AUTO DIFF WBC Returned 10/28/2017 12:00 AM METABOLIC PANEL TOTAL CA Returned 10/28/2017 12:00 AM COMPLETE CBC W/AUTO DIFF WBC Returned 10/28/2017 12:00 AM ROUTINE VENIPUNCTURE Reviewed 11/05/2017 12:00 AM COLLECTION VENOUS BLOOD VENIPUNCTURE Reviewed 11/05/2017 12:00 AM METABOLIC PANEL TOTAL CA Returned 11/05/2017 12:00 AM COMPLETE CBC W/AUTO DIFF WBC Returned 11/11/2017 12:00 AM COLLECTION VENOUS BLOOD VENIPUNCTURE Reviewed 11/03/2013 12:00 AM DIAGNOSTIC COLONOSCOPY [...] AA 119 eGFR >60 mL/min/1.73meGFR AA* >60 History Of Immunizations Not available. History of Past Illness Name Date of Onset Comments Hyperlipidemia Cardiomyopathy Post viral Major Depression (Recurrent) Gastroesophageal reflux disease (GERD) Degenerative joint disease Osteoarthritis Neuropathy SVT Glucose Intolerance Hypertension Adenofibromatous hypertrophy of prostate 06/29/2016 High risk medication use 10/28/2017 Adenocarcinoma of lung 10/28/2017 Acute esophagitis Nov 03 2013 11:12AM Colon [...] rhinitis Oct 28 2017 9:00AM Adenocarcinoma of lung Oct 28 2017 9:00AM High risk medication use Oct 28 2017 9:00AM Adenocarcinoma of bronchus, unspecified laterality Nov 05 2017 10:01AM High risk medication use Nov 05 2017 10:01AM Adenocarcinoma of bronchus, unspecified laterality Nov 11 2017 8:58AM High risk medication use Nov 11 2017 8:58AM Payers Insurance Name Company Name Plan Name Plan Number Policy Number Policy Group Number Start Date [id number] N/A Medicare [facility] Medicare C [id number] N/A Medicare Part A Medicare - Lab/Xray [id number] N/A Medicare Part B Medicare Secondary [id number] N/A History of Encounters Visit Date Visit Type Provider 11/11/2017 Laboratory Laura Ramsay FINANCIAL LEGAL ASSISTANT 11/05/2017 Laboratory Laura Ramsay FINANCIAL LEGAL ASSISTANT 10/28/2017 Office visit Laura Lopezngstanford FINANCIAL LEGAL ASSISTANT 10/21/2017 Laboratory Laura Ramsay FINANCIAL LEGAL ASSISTANT 10/14/2017 Laboratory Laura Lopezngin FINANCIAL LEGAL ASSISTANT 10/07/2017 Laboratory Laura Lopezngin FINANCIAL LEGAL ASSISTANT 09/30/2017 Laboratory Laura Lopezngin FINANCIAL LEGAL ASSISTANT 09/23/2017 Laboratory Laura Lopezngin FINANCIAL LEGAL ASSISTANT 09/16/2017 Laboratory Laura Lopezngin FINANCIAL LEGAL ASSISTANT 09/09/2017 Office visit Laura Lopezngstanford FINANCIAL LEGAL ASSISTANT 09/09/2017 Hospital Bishop Nino MD 09/09/2017 Laboratory Laura Lopezngin FINANCIAL LEGAL ASSISTANT 07/08/2017 Office visit Laura Ramsay FINANCIAL LEGAL ASSISTANT 07/03/2017 Office visit Laura Ramsay FINANCIAL LEGAL ASSISTANT 06/27/2017 Office visit Laura Ramsay FINANCIAL LEGAL ASSISTANT 06/12/2017 Office visit Laura Ramsay FINANCIAL LEGAL ASSISTANT 02/11/2017 Hospital Bishop Nino MD 02/11/2017 [facility] Tho Thornton MD 02/10/2017 [facility] Bishop Nino MD 06/29/2016 Office visit Roberta Jones MD 04/09/2016 [facility] Roberta Jones MD 03/21/2016 Office visit Roberta Jones MD 09/18/2015 [facility] Bishop Nino MD 02/08/2015 [facility] Bishop Nino MD 11/05/2013 [facility] Sebastian Keys MD 11/03/2013 Office visit Sebastian Keys MD 10/22/2013 Hospital Bishop Nino MD 08/24/2009 Laboratory Anne Lew MD
--- OUTSIDE RECORDS SUMMARY | 2018-03-22 05:48 | XMS REPORT ---
Author Author Laura Ramsay [facility] Address [address] [place], [place] [address] Care Team Providers Care Chief Substation Operator Name Role Phone Laura Ramsay PCP Laura Ramsay PreferredProvider Allergies and Adverse Reactions Name Reaction Notes Tenormin Pravachol Zocor Crestor [place] 3 Plan of Treatment Planned Activity Comments Planned Date Planned Time Plan/Goal BMP 09/30/2017 12:00 AM CBC W/ AUTO DIFF (RFLX MAN DIFF IF IND). 09/30/2017 12:00 AM Medications Active Name Start Date [...] rpm 98.2 F 218.5 lbs 72 in 29.6336 kg/m 2.2438 m 90 % 07/08/2017 4:55:00 PM 120 mmHg [...] F 223 lbs 72 in 30.2439 kg/m 2.27 m2 97 % Social History Name [...] AA 104 eGFR >60 mL/min/1.73meGFR AA* >60 History Of [...] bronchus, unspecified laterality Sep 30 2017 8:56AM Payers Insurance Name Company Name Plan Name Plan Number Policy Number Policy Group Number Start Date [id number] N/A Medicare RHC Medicare RHC [id number] N/A Medicare Part A Medicare - Lab/Xray [id number] N/A Medicare Part B Medicare Secondary [id number] N/A History of Encounters Visit Date Visit Type Provider 09/30/2017 Laboratory Laura Croft [place] PRECIPITATOR SUPERVISOR 09/23/2017 Laboratory Laura Croft [place] PRECIPITATOR SUPERVISOR 09/16/2017 Laboratory Laura Croft [place] PRECIPITATOR SUPERVISOR 09/09/2017 Office visit Laura Ramsay PRECIPITATOR SUPERVISOR 09/09/2017 Laboratory Laura Ramsay PRECIPITATOR SUPERVISOR 07/08/2017 Office visit Laura Ramsay PRECIPITATOR SUPERVISOR 07/03/2017 Office visit Laura Ramsay PRECIPITATOR SUPERVISOR 06/27/2017 Office visit Laura Ramsay PRECIPITATOR SUPERVISOR 06/12/2017 Office visit Laura Penastanford PRECIPITATOR SUPERVISOR 02/11/2017 [facility] Bishop Nino MD 02/11/2017 [facility] Tho Thornton MD 02/10/2017 [facility] Bishop Nino MD 06/29/2016 Office visit Roberta Jones MD 04/09/2016 [facility] Roberta Jones MD 03/21/2016 Office visit Roberta Jones MD 09/18/2015 Hospital Bishop Nino MD 02/08/2015 [facility] Bishop Nino MD 11/05/2013 [facility] Sebastian Keys MD 11/03/2013 Office visit Sebastian Keys MD 10/22/2013 [facility] Bishop Nino MD 08/24/2009 Laboratory Anne Lew MD
--- OUTSIDE RECORDS SUMMARY | 2018-03-22 05:48 | XMS REPORT ---
Author Author Laura Ramsay [facility] Address [address] [place], [place] [address] Care Team Providers Care Operator Command Support Systems Name Role Phone Laura Ramsay PCP Laura Ramsay PreferredProvider Allergies and Adverse Reactions Name Reaction Notes Tenormin Pravachol Zocor Crestor [place] 3 Plan of Treatment Planned Activity Comments Planned Date Planned Time Plan/Goal BMP 09/23/2017 12:00 AM CBC W/ AUTO DIFF (RFLX MAN DIFF IF IND). 09/23/2017 12:00 AM Medications Active Name Start Date [...] AA 92 eGFR >60 mL/min/1.73meGFR AA* >60 History Of [...] bronchus, unspecified laterality Sep 23 2017 10:26AM Payers Insurance Name Company Name Plan Name Plan Number Policy Number Policy Group Number Start Date BCBS [facility] [id number] N/A Medicare RHC Medicare [facility] [id number] N/A Medicare Part A Medicare - Lab/Xray [id number] N/A Medicare Part B Medicare Secondary [id number] N/A History of Encounters Visit Date Visit Type Provider 09/23/2017 Laboratory Laura Ramsay PERIOPERATIVE EDUCATOR 09/16/2017 Laboratory Laura Ramsay PERIOPERATIVE EDUCATOR 09/09/2017 Office visit Laura Ramsay PERIOPERATIVE EDUCATOR 09/09/2017 Laboratory Laura Ramsay PERIOPERATIVE EDUCATOR 07/08/2017 Office visit Laura Ramsay PERIOPERATIVE EDUCATOR 07/03/2017 Office visit Laura Ramsay PERIOPERATIVE EDUCATOR 06/27/2017 Office visit Laura Ramsay PERIOPERATIVE EDUCATOR 06/12/2017 Office visit Laura Ramsay PERIOPERATIVE EDUCATOR 02/11/2017 [facility] Bishop Nino MD 02/11/2017 [facility] Tho Thornton MD 02/10/2017 [facility] Bishop Nino MD 06/29/2016 Office visit Roberta Jones MD 04/09/2016 [facility] Roberta Jones MD 03/21/2016 Office visit Roberta Jones MD 09/18/2015 [facility] Bishop Nino MD 02/08/2015 [facility] Bishop Nino MD 11/05/2013 [facility] Sebastian Keys MD 11/03/2013 Office visit Sebastian Keys MD 10/22/2013 [facility] Bishop Nino MD 08/24/2009 Laboratory Anne Lew MD
[2018-03-22 05:49] LABS: BASOPHILS % (AUTO) 0 % (0-10); EOSINOPHILS # (AUTO) 0.1 10^3/uL (0.0-0.3); EOSINOPHILS % (AUTO) 2 % (0-10); HEMATOCRIT 41 % (40-54); HEMOGLOBIN 14.2 G/DL (13.3-17.7); LYMPHOCYTES # (AUTO) 1.2 X 10^3 (1.0-4.0); LYMPHOCYTES % (AUTO) 14 % (12-44); MEAN CORPUSCULAR HEMOGLOBIN 32 PG (25-34); MEAN CORPUSCULAR HGB CONC 35 G/DL (32-36); MEAN CORPUSCULAR VOLUME 93 FL (80-99); MEAN PLATELET VOLUME 8.4 FL (7.4-10.4); MONOCYTES # (AUTO) 1.2 X 10^3 (0.0-1.0); MONOCYTES % (AUTO) 13 % (0-12); NEUTROPHILS # (AUTO) 6.4 X 10^3 (1.8-7.8); NEUTROPHILS % (AUTO) 72 % (42-75); PLATELET COUNT 186 10^3/uL (130-400); RED BLOOD COUNT 4.41 10^6/uL (4.35-5.85); RED CELL DISTRIBUTION WIDTH 13.5 % (10.0-14.5); WHITE BLOOD COUNT 8.9 10^3/uL (4.3-11.0)
--- OUTSIDE RECORDS SUMMARY | 2018-03-22 05:50 | XMS REPORT ---
Author Author Laura Ramsay [facility] Address [address] [place], [place] [id number] Care Team Providers Care Fishing Vessel Operator Name Role Phone Laura Ramsay PCP Laura Ramsay PreferredProvider Allergies and Adverse Reactions Name Reaction Notes Tenormin Pravachol Zocor Crestor [place] 3 Plan of Treatment Planned Activity Comments Planned Date Planned Time Plan/Goal BMP 11/05/2017 12:00 AM CBC W/ AUTO DIFF (RFLX MAN DIFF IF IND). 11/05/2017 12:00 AM Medications Active Name Start Date [...] 2 times per day for 30 days amoxicillin 875 mg oral tablet 10/28/2017 11/07/2017 take 1 tablet (875 mg) by oral route every 12 hours for 10 days naproxen 500 mg oral tablet 11/05/2017 [...] risk medication use Nov 05 2017 10:01AM Payers Insurance Name Company Name Plan Name Plan Number Policy Number Policy Group Number [id number] N/A Medicare RHC Medicare [place] [id number] N/A Medicare Part A Medicare - Lab/Xray [id number] N/A Medicare Part B Medicare Secondary [id number] N/A History of Encounters Visit Date Visit Type Provider 11/05/2017 Laboratory Laura Ramsay DIGITAL MEDIA SALES CONSULTANT 10/28/2017 Office visit Laura Ramsay DIGITAL MEDIA SALES CONSULTANT 10/21/2017 Laboratory Laura Ramsay DIGITAL MEDIA SALES CONSULTANT 10/14/2017 Laboratory Laura Ramsay DIGITAL MEDIA SALES CONSULTANT 10/07/2017 Laboratory Laura Ramsay DIGITAL MEDIA SALES CONSULTANT 09/30/2017 Laboratory Laura Ramsay DIGITAL MEDIA SALES CONSULTANT 09/23/2017 Laboratory Laura Ramsay DIGITAL MEDIA SALES CONSULTANT 09/16/2017 Laboratory Laura Ramsay DIGITAL MEDIA SALES CONSULTANT 09/09/2017 Office visit Laura Ramsay DIGITAL MEDIA SALES CONSULTANT 09/09/2017 Hospital Bishop Nino MD 09/09/2017 Laboratory Laura Ramsay DIGITAL MEDIA SALES CONSULTANT 07/08/2017 Office visit Laura Ramsay DIGITAL MEDIA SALES CONSULTANT 07/03/2017 Office visit Laura Ramsay DIGITAL MEDIA SALES CONSULTANT 06/27/2017 Office visit Laura Ramsay DIGITAL MEDIA SALES CONSULTANT 06/12/2017 Office visit Laura Ramsay DIGITAL MEDIA SALES CONSULTANT 02/11/2017 [facility] Bishop Nino MD 02/11/2017 [facility] Tho Thornton MD 02/10/2017 [facility] Bishop Nino MD 06/29/2016 Office visit Roberta Jones MD 04/09/2016 [facility] Roberta Jones MD 03/21/2016 Office visit Roberta Jones MD 09/18/2015 [facility] Bishop Nino MD 02/08/2015 [facility] Bishop Nino MD 11/05/2013 [facility] Sebastian Keys MD 11/03/2013 Office visit Sebastian Keys MD 10/22/2013 [facility] Bishop Nino MD 08/24/2009 Laboratory Anne Lew MD
--- OUTSIDE RECORDS SUMMARY | 2018-03-22 05:51 | XMS REPORT ---
Author Author Laura Ramsay [facility] Address [address] [place], [place] [address] Care Team Providers Care Natural Resources Professor Name Role Phone Laura Ramsay PCP Laura Ramsay PreferredProvider Allergies and Adverse Reactions Name Reaction Notes Tenormin Pravachol Zocor Crestor [place] 3 Plan of Treatment Not available. Medications [...] 2 times per day for 30 days Name Start Date Expiration Date SIG [...] risk medication use Oct 21 2017 8:56AM Payers Insurance Name Company Name Plan Name Plan Number Policy Number Policy Group Number Start Date BCBS [facility] [place] [id number] N/A Medicare RHC Medicare RHC [id number] N/A Medicare Part A Medicare - Lab/Xray [id number] N/A Medicare Part B Medicare Secondary [id number] N/A History of Encounters Visit Date Visit Type Provider 10/21/2017 Laboratory Laura Croft Swebrookengin BUTADIENE COMPRESSOR OPERATOR 10/14/2017 Laboratory Laura Croft Swebrookengin BUTADIENE COMPRESSOR OPERATOR 10/07/2017 Laboratory Laura Croft Swearengin BUTADIENE COMPRESSOR OPERATOR 09/30/2017 Laboratory Laura Croft Swearengin BUTADIENE COMPRESSOR OPERATOR 09/23/2017 Laboratory Laura Croft Swebrookengin BUTADIENE COMPRESSOR OPERATOR 09/16/2017 Laboratory Laura Croft Swebrookengin BUTADIENE COMPRESSOR OPERATOR 09/09/2017 Office visit Laura Lopezngin BUTADIENE COMPRESSOR OPERATOR 09/09/2017 Hospital Bishop Nino MD 09/09/2017 Laboratory Laura Lopezngin BUTADIENE COMPRESSOR OPERATOR 07/08/2017 Office visit Laura Lopezngin BUTADIENE COMPRESSOR OPERATOR 07/03/2017 Office visit Laura Lopezngin BUTADIENE COMPRESSOR OPERATOR 06/27/2017 Office visit Laura Lopezngin BUTADIENE COMPRESSOR OPERATOR 06/12/2017 Office visit Laura Lopezngstanford BUTADIENE COMPRESSOR OPERATOR 02/11/2017 Hospital Bishop Nino MD 02/11/2017 [facility] Tho Thornton MD 02/10/2017 [facility] Bishop Nino MD 06/29/2016 Office visit Roberta Jones MD 04/09/2016 [facility] Roberta Jones MD 03/21/2016 Office visit Roberta Jones MD 09/18/2015 [facility] Bishop Nino MD 02/08/2015 [facility] Bishop Nino MD 11/05/2013 Hospital Sebastian Keys MD 11/03/2013 Office visit Sebastian Keys MD 10/22/2013 Hospital Bishop Nino MD 08/24/2009 Laboratory Anne Lew MD
--- OUTSIDE RECORDS SUMMARY | 2018-03-22 05:52 | XMS REPORT ---
Author Author Laura Ramsay [facility] Address [address] [place], [place] [address] Care Team Providers Care Lab Rep Name Role Phone Laura Ramsay PCP Laura Ramsay PreferredProvider Allergies and Adverse Reactions Name Reaction Notes Tenormin Pravachol Zocor Crestor [place] 3 Plan of Treatment Planned Activity Comments Planned Date Planned Time Plan/Goal BMP 11/25/2017 12:00 AM CBC W/ AUTO DIFF (RFLX MAN DIFF IF IND). 11/25/2017 12:00 AM Medications Active Name Start Date [...] AA 104 eGFR 86 eGFR AA* >60 History Of Immunizations Not available. [...] cor pulmonale Nov 25 2017 9: 03AM Payers Insurance Name Company Name Plan Name Plan Number Policy Number Policy Group Number Start Date [facility] [id number] N/A Medicare RHC Medicare RHC [id number] N/A Medicare Part A Medicare - Lab/Xray [id number] N/A Medicare Part B Medicare Secondary [id number] N/A History of Encounters Visit Date Visit Type Provider 11/25/2017 Laboratory Laura Ramsay CARDIOVASCULAR TECHNICIAN 11/18/2017 Laboratory Laura Ramsay CARDIOVASCULAR TECHNICIAN 11/11/2017 Laboratory Laura Lopezngin CARDIOVASCULAR TECHNICIAN 11/05/2017 Laboratory Laura Lopezngin CARDIOVASCULAR TECHNICIAN 10/28/2017 Office visit Laura Ramsay CARDIOVASCULAR TECHNICIAN 10/21/2017 Laboratory Laura Ramsay CARDIOVASCULAR TECHNICIAN 10/14/2017 Laboratory Laura Lopezngin CARDIOVASCULAR TECHNICIAN 10/07/2017 Laboratory Laura Lopezngin CARDIOVASCULAR TECHNICIAN 09/30/2017 Laboratory Laura Lopezngin CARDIOVASCULAR TECHNICIAN 09/23/2017 Laboratory Laura Lopezngin CARDIOVASCULAR TECHNICIAN 09/16/2017 Laboratory Laura Ramsay CARDIOVASCULAR TECHNICIAN 09/09/2017 Office visit Laura Ramsay CARDIOVASCULAR TECHNICIAN 09/09/2017 Hospital Bishop Nino MD 09/09/2017 Laboratory Laura Lopezngin CARDIOVASCULAR TECHNICIAN 07/08/2017 Office visit Laura Ramsay CARDIOVASCULAR TECHNICIAN 07/03/2017 Office visit Laura Ramsay CARDIOVASCULAR TECHNICIAN 06/27/2017 Office visit Laura Ramsay CARDIOVASCULAR TECHNICIAN 06/12/2017 Office visit Laura Ramsay CARDIOVASCULAR TECHNICIAN 02/11/2017 Hospital Bishop Nino MD 02/11/2017 [facility] Tho Thornotn MD 02/10/2017 [facility] Bishop Nino MD 06/29/2016 Office visit Roberta Jones MD 04/09/2016 Hospital Roberta Jones MD 03/21/2016 Office visit Roberta Jones MD 09/18/2015 [facility] Bishop Nino MD 02/08/2015 [facility] Bishop Nino MD 11/05/2013 [facility] Sebastian Keys MD 11/03/2013 Office visit Sebastian Keys MD 10/22/2013 [facility] Bishop Nino MD 08/24/2009 Laboratory Anne Lew MD
--- OUTSIDE RECORDS SUMMARY | 2018-03-22 05:53 | XMS REPORT ---
Author Author Laura Ramsay [facility] Address [address] [place], [place] [phone] Care Team Providers Care House Player Name Role Phone Laura Ramsay PCP Laura Ramsay PreferredProvider Allergies and Adverse Reactions Name Reaction Notes Tenormin Pravachol Zocor Crestor [place] 3 Plan of Treatment Not available. Medications [...] AM COMPLETE CBC W/AUTO DIFF WBC Returned 11/05/2017 12:00 AM COLLECTION VENOUS BLOOD VENIPUNCTURE Reviewed 11/05/2017 12:00 AM METABOLIC PANEL TOTAL CA Returned 11/05/2017 12:00 AM COMPLETE CBC W/AUTO DIFF WBC Returned 11/11/2017 12:00 AM COLLECTION VENOUS BLOOD VENIPUNCTURE Reviewed 11/11/2017 12:00 AM METABOLIC PANEL TOTAL CA Returned 11/11/2017 12:00 AM COMPLETE CBC W/AUTO DIFF WBC Returned 10/28/2017 12:00 AM METABOLIC PANEL TOTAL CA Returned 10/28/2017 12:00 AM COMPLETE CBC W/AUTO DIFF WBC Returned 10/28/2017 12:00 AM ROUTINE VENIPUNCTURE Reviewed 11/03/2013 12:00 [...] cor pulmonale Oct 28 2017 9: 00AM Payers Insurance Name Company Name Plan Name Plan Number Policy Number Policy Group Number Start Date BCBS [facility] [place] [id number] N/A Medicare RHC Medicare RHC [id number] N/A Medicare Part A Medicare - Lab/Xray [id number] N/A Medicare Part B Medicare Secondary [id number] N/A History of Encounters Visit Date Visit Type Provider 11/11/2017 Laboratory Laura Lopezngin BRIDGE WORKER 11/05/2017 Laboratory Laura Lopezngin BRIDGE WORKER 10/28/2017 Office visit Laura Lopezngin BRIDGE WORKER 10/21/2017 Laboratory Laura Croft Swebrookengin BRIDGE WORKER 10/14/2017 Laboratory Laura Croft Swebrookengin BRIDGE WORKER 10/07/2017 Laboratory Laura Croft Swebrookengin BRIDGE WORKER 09/30/2017 Laboratory Laura Croft Swebrookengin BRIDGE WORKER 09/23/2017 Laboratory Laura Croft Swebrookengin BRIDGE WORKER 09/16/2017 Laboratory Laura Croft Swebrookengin BRIDGE WORKER 09/09/2017 Office visit Laura Lopezngin BRIDGE WORKER 09/09/2017 Hospital Bishop Nino MD 09/09/2017 Laboratory Laura Lopezngin BRIDGE WORKER 07/08/2017 Office visit Laura Lopezngin BRIDGE WORKER 07/03/2017 Office visit Laura Lopezngstanford BRIDGE WORKER 06/27/2017 Office visit Laura Lopezngstanford BRIDGE WORKER 06/12/2017 Office visit Laura Lopezngin BRIDGE WORKER 02/11/2017 Hospital Bishop Nino MD 02/11/2017 [facility] Tho Thornton MD 02/10/2017 [facility] Bishop Nino MD 06/29/2016 Office visit Roberta Jones MD 04/09/2016 [facility] Roberta Jones MD 03/21/2016 Office visit Roberta Jones MD 09/18/2015 [facility] Bishop Nino MD 02/08/2015 Hospital Bishop Nino MD 11/05/2013 Hospital Sebastian Keys MD 11/03/2013 Office visit Sebastian Keys MD 10/22/2013 [facility] Bishop Nino MD 08/24/2009 Laboratory Anne Lew MD
--- OUTSIDE RECORDS SUMMARY | 2018-03-22 05:54 | XMS REPORT ---
Author Author Laura Ramsay [facility] Address [address] [place], [place] [address] Care Team Providers Care Nurse Office Name Role Phone Laura Ramsay PCP Laura Ramsay PreferredProvider Allergies and Adverse Reactions Name Reaction Notes Tenormin Pravachol Zocor Crestor [place] 3 Plan of Treatment Planned Activity Comments Planned Date Planned Time Plan/Goal BMP 11/18/2017 12:00 AM CBC W/ AUTO DIFF (RFLX MAN DIFF IF IND). 11/18/2017 12:00 AM Medications Active Name Start Date [...] 2 EOS 1.0 %ATYP LYMPHS FEW % History Of Immunizations Not available. History of [...] cor pulmonale Nov 18 2017 9: 15AM Payers Insurance Name Company Name Plan Name Plan Number Policy Number Policy Group Number Start Date BC [facility] [place] [id number] N/A Medicare RHC Medicare RHC [id number] N/A Medicare Part A Medicare - Lab/Xray [id number] N/A Medicare Part B Medicare Secondary [id number] N/A History of Encounters Visit Date Visit Type Provider 11/18/2017 Laboratory Laura Croft Swebrookengin IMPORT CLERK 11/11/2017 Laboratory Laura Lopezngin IMPORT CLERK 11/05/2017 Laboratory Laura Lopezngin IMPORT CLERK 10/28/2017 Office visit Laura Lopezngin IMPORT CLERK 10/21/2017 Laboratory Laura Lopezngin IMPORT CLERK 10/14/2017 Laboratory Laura Croft Swebrookengin IMPORT CLERK 10/07/2017 Laboratory Laura Croft Swebrookengin IMPORT CLERK 09/30/2017 Laboratory Laura Croft Swebrookengin IMPORT CLERK 09/23/2017 Laboratory Laura Croft Swebrookengin IMPORT CLERK 09/16/2017 Laboratory Laura Croft Swebrookengin IMPORT CLERK 09/09/2017 Office visit Laura Lopezngstanford IMPORT CLERK 09/09/2017 Hospital Bishop Nino MD 09/09/2017 Laboratory Laura Lopezngin IMPORT CLERK 07/08/2017 Office visit Laura Lopezngin IMPORT CLERK 07/03/2017 Office visit Laura Lopezngin IMPORT CLERK 06/27/2017 Office visit Laura Lopezngin IMPORT CLERK 06/12/2017 Office visit Laura Lopezngin IMPORT CLERK 02/11/2017 Hospital Bishop Nino MD 02/11/2017 [facility] Tho Thornton MD 02/10/2017 Hospital Bishop Nino MD 06/29/2016 Office visit Roberta Jones MD 04/09/2016 Hospital Roberta Jones MD 03/21/2016 Office visit Roberta Jones MD 09/18/2015 [facility] Bishop Nino MD 02/08/2015 Hospital Bishop Nino MD 11/05/2013 [facility] Sebastian Keys MD 11/03/2013 Office visit Sebastian Keys MD 10/22/2013 Hospital Bishop Nino MD 08/24/2009 Laboratory Anne Lew MD
--- OUTSIDE RECORDS SUMMARY | 2018-03-22 05:55 | XMS REPORT ---
Author Author Laura Ramsay [facility] Address [address] [place], [place] [address] Care Team Providers Care Oil Producer Name Role Phone Laura Ramsay PCP Laura Ramsay PreferredProvider Allergies and Adverse Reactions Name Reaction Notes Tenormin Pravachol Zocor Crestor [place] 3 Plan of Treatment Planned Activity Comments [...] Number Policy Group Number Start Date BCBS [facility] [id number] N/A Medicare RHC Medicare [facility] [id number] N/A Medicare Part A Medicare - Lab/Xray [id number] N/A Medicare Part B Medicare Secondary [id number] N/A History of Encounters Visit Date Visit Type Provider 09/23/2017 Laboratory Laura Ramsay ROTARY PEEL OVEN TENDER 09/16/2017 Laboratory Laura Ramsay ROTARY PEEL OVEN TENDER 09/09/2017 Office visit Laura Ramsay ROTARY PEEL OVEN TENDER 09/09/2017 Laboratory Laura Ramsay ROTARY PEEL OVEN TENDER 07/08/2017 Office visit Laura Ramsay ROTARY PEEL OVEN TENDER 07/03/2017 Office visit Laura Ramsay ROTARY PEEL OVEN TENDER 06/27/2017 Office visit Laura Ramsay ROTARY PEEL OVEN TENDER 06/12/2017 Office visit Laura Ramsay ROTARY PEEL OVEN TENDER 02/11/2017 [facility] Bishop Nino MD 02/11/2017 [facility] Tho Thornton MD 02/10/2017 [facility] Bishop Nino MD 06/29/2016 Office visit Roberta Jones MD 04/09/2016 [facility] Roberta Jones MD 03/21/2016 Office visit Roberta Jones MD 09/18/2015 [facility] Bishop Nino MD 02/08/2015 [facility] Bishop Nino MD 11/05/2013 [facility] Sebastian Keys MD 11/03/2013 Office visit Sebastian Keys MD 10/22/2013 [facility] Bishop Nino MD 08/24/2009 Laboratory Anne Lew MD
--- OUTSIDE RECORDS SUMMARY | 2018-03-22 05:56 | XMS REPORT ---
Author Author Laura Ramsay [facility] Address [address] [place], [place] [address] Care Team Providers Care Manager Of Broadcast Content Name Role Phone Laura Ramsay PCP Laura Ramsay PreferredProvider Allergies and Adverse Reactions Name Reaction Notes Tenormin Pravachol Zocor Crestor [place] 3 Plan of Treatment Not available. Medications [...] Returned 10/28/2017 12:00 AM ROUTINE VENIPUNCTURE Reviewed 11/11/2017 12:00 AM COLLECTION VENOUS BLOOD VENIPUNCTURE Reviewed 11/11/2017 12:00 AM METABOLIC PANEL TOTAL CA Returned 11/05/2017 12:00 AM COLLECTION VENOUS BLOOD VENIPUNCTURE Reviewed 11/05/2017 12:00 AM METABOLIC PANEL TOTAL CA Returned 11/03/2013 12:00 AM DIAGNOSTIC COLONOSCOPY Reviewed [...] cor pulmonale Nov 05 2017 10: 01AM Payers Insurance Name Company Name Plan Name Plan Number Policy Number Policy Group Number Start Date BCBS [employer] [facility] [place] [id number] N/A Medicare RHC Medicare RHC [id number] N/A Medicare Part A Medicare - Lab/Xray [id number] N/A Medicare Part B Medicare Secondary [id number] N/A History of Encounters Visit Date Visit Type Provider 11/11/2017 Laboratory Laura Croft Swebrookengin CONSUMER AFFAIRS SPECIALIST 11/05/2017 Laboratory Laura Croft Swebrookengin CONSUMER AFFAIRS SPECIALIST 10/28/2017 Office visit Laura Lopezngin CONSUMER AFFAIRS SPECIALIST 10/21/2017 Laboratory Laura Croft Swebrookengin CONSUMER AFFAIRS SPECIALIST 10/14/2017 Laboratory Laura Croft Swebrookengin CONSUMER AFFAIRS SPECIALIST 10/07/2017 Laboratory Laura Croft Swebrookengin CONSUMER AFFAIRS SPECIALIST 09/30/2017 Laboratory Laura Croft Swebrookengin CONSUMER AFFAIRS SPECIALIST 09/23/2017 Laboratory Laura Croft Swebrookengin CONSUMER AFFAIRS SPECIALIST 09/16/2017 Laboratory Laura Croft Swebrookengin CONSUMER AFFAIRS SPECIALIST 09/09/2017 Office visit Laura Lopezngin CONSUMER AFFAIRS SPECIALIST 09/09/2017 Hospital Bishop Nino MD 09/09/2017 Laboratory Laura Lopezngin CONSUMER AFFAIRS SPECIALIST 07/08/2017 Office visit Laura Lopezngin CONSUMER AFFAIRS SPECIALIST 07/03/2017 Office visit Laura Lopezngin CONSUMER AFFAIRS SPECIALIST 06/27/2017 Office visit Laura Lopezngin CONSUMER AFFAIRS SPECIALIST 06/12/2017 Office visit Laura Lopezngin CONSUMER AFFAIRS SPECIALIST 02/11/2017 [facility] Bishop Nino MD 02/11/2017 [place] [...]
--- OUTSIDE RECORDS SUMMARY | 2018-03-22 05:57 | XMS REPORT ---
Author Author Laura Ramsay [facility] Address [address] [place], [place] [address] Care Team Providers Care Insurance Verification Specialist Name Role Phone Laura Ramsay PCP Laura Ramsay PreferredProvider Allergies and Adverse Reactions Name Reaction Notes Tenormin Pravachol Zocor Crestor [place] 3 Plan of Treatment Not available. Medications [...] 10/07/2017 12:00 AM METABOLIC PANEL TOTAL CA Returned [...] bronchus, unspecified laterality Oct 07 2017 9:02AM Payers Insurance Name Company Name Plan Name Plan Number Policy Number Policy Group Number Start Date [id number] N/A Medicare RHC Medicare RHC [id number] N/A Medicare Part A Medicare - Lab/Xray [id number] N/A Medicare Part B Medicare Secondary [id number] N/A History of Encounters Visit Date Visit Type Provider 10/07/2017 Laboratory Laura Ramsay BAND STRAIGHTENER 09/30/2017 Laboratory Laura Ramsay BAND STRAIGHTENER 09/23/2017 Laboratory Laura Ramsay BAND STRAIGHTENER 09/16/2017 Laboratory Laura Ramsay BAND STRAIGHTENER 09/09/2017 Office visit Laura Ramsay BAND STRAIGHTENER 09/09/2017 Hospital Bishop Nino MD 09/09/2017 Laboratory Laura Ramsay BAND STRAIGHTENER 07/08/2017 Office visit Laura Ramsay BAND STRAIGHTENER 07/03/2017 Office visit Laura Ramsay BAND STRAIGHTENER 06/27/2017 Office visit Laura Ramsay BAND STRAIGHTENER 06/12/2017 Office visit Laura Ramsay BAND STRAIGHTENER 02/11/2017 [facility] Bishop Nino MD 02/11/2017 [facility] Tho Thornton MD 02/10/2017 [facility] Bishop Nino MD 06/29/2016 Office visit Roberta Jones MD 04/09/2016 [facility] Roberta Jones MD 03/21/2016 Office visit Roberta Jones MD 09/18/2015 [facility] Bishop Nino MD 02/08/2015 [facility] Bishop Nino MD 11/05/2013 [facility] Sebastian Keys MD 11/03/2013 Office visit Sebastian Keys MD 10/22/2013 [facility] Bishop Nino MD 08/24/2009 Laboratory Anne Lew MD
--- OUTSIDE RECORDS SUMMARY | 2018-03-22 05:59 | XMS REPORT ---
Author Author Laura Ramsay [facility] Address [address] [place], [place] [id number] Care Team Providers Care Microsoft Bi Developer Name Role Phone Laura Ramsay PCP Laura Ramsay PreferredProvider Allergies and Adverse Reactions Name Reaction Notes Tenormin Pravachol Zocor Crestor [place] 3 Plan of Treatment Planned Activity Comments Planned Date Planned Time Plan/Goal [facility] 10/07/2017 12:00 AM Medications Active Name Start Date [...] Policy Group Number Start Date BCBS Bcbs [facility] [id number] N/A Medicare RHC Medicare RHC [id number] N/A Medicare Part A Medicare - Lab/Xray [id number] N/A Medicare Part B Medicare Secondary [id number] N/A History of Encounters Visit Date Visit Type Provider 10/07/2017 Laboratory Laura Ramsay GROOMING ASSISTANT 09/30/2017 Laboratory Laura Ramsay GROOMING ASSISTANT 09/23/2017 Laboratory Laura Ramsay GROOMING ASSISTANT 09/16/2017 Laboratory Laura Ramsay GROOMING ASSISTANT 09/09/2017 Office visit Laura Ramsay GROOMING ASSISTANT 09/09/2017 Laboratory Laura Ramsay GROOMING ASSISTANT 07/08/2017 Office visit Laura Ramsay GROOMING ASSISTANT 07/03/2017 Office visit Laura Ramsay GROOMING ASSISTANT 06/27/2017 Office visit Laura Ramsay GROOMING ASSISTANT 06/12/2017 Office visit Laura Ramsay GROOMING ASSISTANT 02/11/2017 Hospital Bishop Nino MD 02/11/2017 [facility] Tho Thornotn MD 02/10/2017 [facility] Bishop Nino MD 06/29/2016 Office visit Roberta Jones MD 04/09/2016 [facility] Roberta Jones MD 03/21/2016 Office visit Roberta Jones MD 09/18/2015 [facility] Bishop Nino MD 02/08/2015 [facility] Bisohp Nino MD 11/05/2013 [facility] Sebastian Keys MD 11/03/2013 Office visit Sebastian Keys MD 10/22/2013 [facility] Bishop Nino MD 08/24/2009 Laboratory Anne Lew MD
--- OUTSIDE RECORDS SUMMARY | 2018-03-22 06:00 | XMS REPORT ---
Author Author Laura Ramsay [facility] Address [address] [place], [place] [id number] Care Team Providers Care Laundry Washer Name Role Phone Laura Ramsay PCP Laura Ramsay PreferredProvider Allergies and Adverse Reactions Name Reaction Notes Tenormin Pravachol Zocor Crestor [place] 3 Plan of Treatment Not available. Medications [...] Policy Number Policy Group Number [id number] N/A Medicare RHC Medicare RHC [id number] N/A Medicare Part A Medicare - Lab/Xray [id number] N/A Medicare Part B Medicare Secondary [id number] N/A History of Encounters Visit Date Visit Type Provider 11/05/2017 Laboratory Laura Ramsay SITE MEDICAL DIRECTOR 10/28/2017 Office visit Laura Ramsay SITE MEDICAL DIRECTOR 10/21/2017 Laboratory Laura Ramsay SITE MEDICAL DIRECTOR 10/14/2017 Laboratory Laura Ramsay SITE MEDICAL DIRECTOR 10/07/2017 Laboratory Laura Ramsay SITE MEDICAL DIRECTOR 09/30/2017 Laboratory Laura Ramsay SITE MEDICAL DIRECTOR 09/23/2017 Laboratory Laura Ramsay SITE MEDICAL DIRECTOR 09/16/2017 Laboratory Laura Ramsay SITE MEDICAL DIRECTOR 09/09/2017 Office visit Laura Ramsay SITE MEDICAL DIRECTOR 09/09/2017 Hospital Bishop Nino MD 09/09/2017 Laboratory Laura Ramsay SITE MEDICAL DIRECTOR 07/08/2017 Office visit Laura Ramsay SITE MEDICAL DIRECTOR 07/03/2017 Office visit Laura Ramsay SITE MEDICAL DIRECTOR 06/27/2017 Office visit Laura Ramsay SITE MEDICAL DIRECTOR 06/12/2017 Office visit Laura Ramsay SITE MEDICAL DIRECTOR 02/11/2017 [facility] Bishop Nino MD 02/11/2017 [facility] Tho Thornton MD 02/10/2017 [facility] Bishop Nino MD 06/29/2016 Office visit Roberta Jones MD 04/09/2016 [facility] Roberta Jones MD 03/21/2016 Office visit Roberta Jones MD 09/18/2015 [facility] Bishop Nino MD 02/08/2015 [facility] Bishop Nino MD 11/05/2013 [facility] Sebastian Keys MD 11/03/2013 Office visit Sebastian Keys MD 10/22/2013 [facility] Bishop Nino MD 08/24/2009 Laboratory Anne Lew MD
--- OUTSIDE RECORDS SUMMARY | 2018-03-22 06:02 | XMS REPORT ---
Author Author Laura Ramsay [facility] Address [address] [place], [place] [id number] Care Team Providers Care Commercial Parts Professional Name Role Phone Laura Ramsay PCP Laura Ramsay PreferredProvider Allergies and Adverse Reactions Name Reaction Notes Tenormin Pravachol Zocor Crestor [place] 3 Plan of Treatment Not available. Medications [...] 11/25/2017 12:00 AM METABOLIC PANEL TOTAL CA Returned 11/25/2017 12:00 AM COMPLETE CBC W/AUTO DIFF [...] Number Policy Group Number Start Date [facility] [id number] N/A Medicare RHC Medicare RHC [id number] N/A Medicare Part A Medicare - Lab/Xray [id number] N/A Medicare Part B Medicare Secondary [id number] N/A History of Encounters Visit Date Visit Type Provider 11/25/2017 Laboratory Laura Ramsay INCOMING INSPECTOR 11/18/2017 Laboratory Laura Ramsay INCOMING INSPECTOR 11/11/2017 Laboratory Laura Ramsay INCOMING INSPECTOR 11/05/2017 Laboratory Laura Lopezngstanford INCOMING INSPECTOR 10/28/2017 Office visit Laura Ramsay INCOMING INSPECTOR 10/21/2017 Laboratory Laura Ramsay INCOMING INSPECTOR 10/14/2017 Laboratory Lauar Ramsay INCOMING INSPECTOR 10/07/2017 Laboratory Laura Lopezngin INCOMING INSPECTOR 09/30/2017 Laboratory Laura Lopezngin INCOMING INSPECTOR 09/23/2017 Laboratory Laura Ramsay INCOMING INSPECTOR 09/16/2017 Laboratory Laura Ramsay INCOMING INSPECTOR 09/09/2017 Office visit Laura Ramsay INCOMING INSPECTOR 09/09/2017 Hospital Bishop Nino MD 09/09/2017 Laboratory Laura Penain INCOMING INSPECTOR 07/08/2017 Office visit Laura Ramsay INCOMING INSPECTOR 07/03/2017 Office visit Laura Ramsay INCOMING INSPECTOR 06/27/2017 Office visit Laura Ramsay INCOMING INSPECTOR 06/12/2017 Office visit Laura Ramsay INCOMING INSPECTOR 02/11/2017 Hospital Bishop Nino MD 02/11/2017 [facility] Tho Thornton MD 02/10/2017 [facility] Bishop Nino MD 06/29/2016 Office visit Roberta Jones MD 04/09/2016 Hospital Roberta Jones MD 03/21/2016 Office visit Roberta Jones MD 09/18/2015 [facility] Bishop Nino MD 02/08/2015 [facility] Bishop Nino MD 11/05/2013 [facility] Sebastian Keys MD 11/03/2013 Office visit Sebastian Keys MD 10/22/2013 [facility] Bishop Nino MD 08/24/2009 Laboratory Anne Lew MD
--- OUTSIDE RECORDS SUMMARY | 2018-03-22 06:03 | XMS REPORT ---
Author Author Laura Ramsay [facility] Address [address] [place], [place] [id number] Care Team Providers Care Bottom Sprayer Name Role Phone Laura Ramsay PCP Laura Ramsay PreferredProvider Allergies and Adverse Reactions Name Reaction Notes Tenormin Pravachol Zocor Crestor [place] 3 Plan of Treatment Planned Activity Comments [...] Policy Group Number Start Date [id number] N/A Medicare RHC Medicare RHC [id number] N/A Medicare Part A Medicare - Lab/Xray [id number] N/A Medicare Part B Medicare Secondary [id number] N/A History of Encounters Visit Date Visit Type Provider 09/30/2017 Laboratory Laura Croft Sobia FEED MILL LAB TECHNICIAN 09/23/2017 Laboratory Laura Croft [place] FEED MILL LAB TECHNICIAN 09/16/2017 Laboratory Laura Croft [place] FEED MILL LAB TECHNICIAN 09/09/2017 Office visit Laura Ramsay FEED MILL LAB TECHNICIAN 09/09/2017 Laboratory Laura Ramsay FEED MILL LAB TECHNICIAN 07/08/2017 Office visit Laura Ramsay FEED MILL LAB TECHNICIAN 07/03/2017 Office visit Laura Ramsay FEED MILL LAB TECHNICIAN 06/27/2017 Office visit Laura Ramsay FEED MILL LAB TECHNICIAN 06/12/2017 Office visit Laura Penastanford FEED MILL LAB TECHNICIAN 02/11/2017 [facility] Bishop Nino MD 02/11/2017 [facility] Tho Thornton MD 02/10/2017 [facility] Bishop Nino MD 06/29/2016 Office visit Roberta Jones MD 04/09/2016 [facility] Roberta Jones MD 03/21/2016 Office visit Roberta Jones MD 09/18/2015 Hospital Bishop Nino MD 02/08/2015 [facility] Bishop Nino MD 11/05/2013 [facility] Sebastian Keys MD 11/03/2013 Office visit Sebastian Keys MD 10/22/2013 [facility] Bishop Nino MD 08/24/2009 Laboratory Anne Lew MD
--- OUTSIDE RECORDS SUMMARY | 2018-03-22 06:03 | XMS REPORT ---
Author Author Laura Ramsay [facility] Address [address] [place], [place] [id number] Care Team Providers Care Audiology Assistant Name Role Phone Laura Ramsay PCP Laura Ramsay PreferredProvider Allergies and Adverse Reactions Name Reaction Notes Tenormin Pravachol Zocor Crestor [place] 3 Plan of Treatment Planned Activity Comments Planned Date Planned Time Plan/Goal BMP 10/14/2017 12:00 AM CBC W/ AUTO DIFF (RFLX MAN DIFF IF IND). 10/14/2017 12:00 AM Medications Active Name Start Date [...] bronchus, unspecified laterality Oct 14 2017 8:52AM Payers Insurance Name Company Name Plan Name Plan Number Policy Number Policy Group Number Start Date [id number] N/A Medicare RHC Medicare RHC [id number] N/A Medicare Part A Medicare - Lab/Xray [id number] N/A Medicare Part B Medicare Secondary [id number] N/A History of Encounters Visit Date Visit Type Provider 10/14/2017 Laboratory Laura Croft Sobia BILLING SPECIALIST 10/07/2017 Laboratory Laura Croft [place] BILLING SPECIALIST 09/30/2017 Laboratory Laura Croft [place] BILLING SPECIALIST 09/23/2017 Laboratory Laura Croft S[place] BILLING SPECIALIST 09/16/2017 Laboratory Laura Croft [place] BILLING SPECIALIST 09/09/2017 Office visit Laura Croft [place] BILLING SPECIALIST 09/09/2017 Hospital Bishop Nino MD 09/09/2017 Laboratory Laura Croft Sobia BILLING SPECIALIST 07/08/2017 Office visit Luara Croft Sobia BILLING SPECIALIST 07/03/2017 Office visit Laura Croft Sobia BILLING SPECIALIST 06/27/2017 Office visit Laura Croft [place] BILLING SPECIALIST 06/12/2017 Office visit Laura GeovanyCharles Sobia BILLING SPECIALIST 02/11/2017 [facility] Bishop Nino MD 02/11/2017 [facility] Tho Thornton MD 02/10/2017 [facility] Bishop Nino MD 06/29/2016 Office visit Roberta Jones MD 04/09/2016 [facility] Roberta Jones MD 03/21/2016 Office visit Roberta Jones MD 09/18/2015 [facility] Bishop Nino MD 02/08/2015 [facility] Bishop Nino MD 11/05/2013 [facility] Sebastian Keys MD 11/03/2013 Office visit Sebastian Keys MD 10/22/2013 [facility] Bishop Nino MD 08/24/2009 Laboratory Anne Lew MD
--- OUTSIDE RECORDS SUMMARY | 2018-03-22 06:04 | XMS REPORT ---
Author Author Laura Ramsay [facility] Address [address] [place], [place] [phone] Care Team Providers Care Student Officer Name Role Phone Laura Ramsay PCP Laura Ramsay PreferredProvider Allergies and Adverse Reactions Name Reaction Notes Tenormin Pravachol Zocor Crestor [place] 3 Plan of Treatment Planned Activity Comments Planned Date Planned Time Plan/Goal BMP 10/21/2017 12:00 AM CBC W/ AUTO DIFF (RFLX MAN DIFF IF IND). 10/21/2017 12:00 AM Medications Active Name Start Date [...] Policy Group Number Start Date BCBS Bcbs [facility] [id number] N/A Medicare RHC Medicare RHC [id number] N/A Medicare Part A Medicare - Lab/Xray [id number] N/A Medicare Part B Medicare Secondary [id number] N/A History of Encounters Visit Date Visit Type Provider 10/21/2017 Laboratory Laura Lopezngin FITTER TYPE BAR AND SEGMENT 10/14/2017 Laboratory Laura Croft Swebrookengin FITTER TYPE BAR AND SEGMENT 10/07/2017 Laboratory Laura Croft Swebrookengin FITTER TYPE BAR AND SEGMENT 09/30/2017 Laboratory Laura Croft Swebrookengin FITTER TYPE BAR AND SEGMENT 09/23/2017 Laboratory Laura Croft Swebrookengin FITTER TYPE BAR AND SEGMENT 09/16/2017 Laboratory Laura Croft Swebrookengin FITTER TYPE BAR AND SEGMENT 09/09/2017 Office visit Laura Lopezngstanford FITTER TYPE BAR AND SEGMENT 09/09/2017 Hospital Bishop Nino MD 09/09/2017 Laboratory Laura Lopezngin FITTER TYPE BAR AND SEGMENT 07/08/2017 Office visit Laura Ramsay FITTER TYPE BAR AND SEGMENT 07/03/2017 Office visit Laura Ramsay FITTER TYPE BAR AND SEGMENT 06/27/2017 Office visit Laura Ramsay FITTER TYPE BAR AND SEGMENT 06/12/2017 Office visit Laura Ramsay FITTER TYPE BAR AND SEGMENT 02/11/2017 Hospital Bishop Nino MD 02/11/2017 [facility] Tho Thornton MD 02/10/2017 [facility] Bishop Nino MD 06/29/2016 Office visit Roberta Jones MD 04/09/2016 Hospital Roberta Jones MD 03/21/2016 Office visit Roberta Jones MD 09/18/2015 [facility] Bishop Nino MD 02/08/2015 [facility] Bishop Nino MD 11/05/2013 Hospital Sebastian Keys MD 11/03/2013 Office visit Sebastian Keys MD 10/22/2013 Hospital Bishop Nino MD 08/24/2009 Laboratory Anne Lew MD
--- OUTSIDE RECORDS SUMMARY | 2018-03-22 06:05 | XMS REPORT ---
Author Author Laura Ramsay [facility] Address [address] [place], [place] [id number] Care Team Providers Care Acidizer Helper Name Role Phone Laura Ramsay PCP Laura Ramsay PreferredProvider Allergies and Adverse Reactions Name Reaction Notes Tenormin Pravachol Zocor Crestor [place] 3 Plan of Treatment Planned Activity Comments [...] Group Number Start Date BC Bc [facility] [place] [id number] N/A Medicare RHC Medicare RHC [id number] N/A Medicare Part A Medicare - Lab/Xray [id number] N/A Medicare Part B Medicare Secondary [id number] N/A History of Encounters Visit Date Visit Type Provider 11/18/2017 Laboratory Laura Croft Swebrookengin CORPORATE SALES REPRESENTATIVE 11/11/2017 Laboratory Laura Lopezngin CORPORATE SALES REPRESENTATIVE 11/05/2017 Laboratory Laura Lopezngin CORPORATE SALES REPRESENTATIVE 10/28/2017 Office visit Laura Lopezngin CORPORATE SALES REPRESENTATIVE 10/21/2017 Laboratory Laura Lopezngin CORPORATE SALES REPRESENTATIVE 10/14/2017 Laboratory Laura Croft Swebrookengin CORPORATE SALES REPRESENTATIVE 10/07/2017 Laboratory Laura Croft Swebrookengin CORPORATE SALES REPRESENTATIVE 09/30/2017 Laboratory Laura Croft Swebrookengin CORPORATE SALES REPRESENTATIVE 09/23/2017 Laboratory Laura Croft Swebrookengin CORPORATE SALES REPRESENTATIVE 09/16/2017 Laboratory Laura Croft Swebrookengin CORPORATE SALES REPRESENTATIVE 09/09/2017 Office visit Laura Lopezngstanford CORPORATE SALES REPRESENTATIVE 09/09/2017 Hospital Bishop Nino MD 09/09/2017 Laboratory Laura Lopezngin CORPORATE SALES REPRESENTATIVE 07/08/2017 Office visit Laura Lopezngin CORPORATE SALES REPRESENTATIVE 07/03/2017 Office visit Laura Lopezngin CORPORATE SALES REPRESENTATIVE 06/27/2017 Office visit Laura Lopezngin CORPORATE SALES REPRESENTATIVE 06/12/2017 Office visit Laura Lopezngin CORPORATE SALES REPRESENTATIVE 02/11/2017 Hospital Bishop Nino MD 02/11/2017 [facility] Tho Thornton MD 02/10/2017 Hospital Bishop Nino MD 06/29/2016 Office visit Roberta Jones MD 04/09/2016 Hospital Roberta Jones MD 03/21/2016 Office visit Roberta Jones MD 09/18/2015 [facility] Bishop Nino MD 02/08/2015 Hospital Bishop Nino MD 11/05/2013 [facility] Sebastian Keys MD 11/03/2013 Office visit Sebastian Keys MD 10/22/2013 Hospital Bishop Nino MD 08/24/2009 Laboratory Anne Lew MD
--- OUTSIDE RECORDS SUMMARY | 2018-03-22 07:49 | XMS REPORT ---
Author Author Laura Ramsay [facility] Address [address] [place], [place] [address] Care Team Providers Care Barrel Assembler Name Role Phone Laura Ramsay PCP Laura Ramsay PreferredProvider Allergies and Adverse Reactions Name Reaction Notes Tenormin Pravachol Zocor Crestor [place] 3 Plan of Treatment Not available. Medications [...] 10/14/2017 12:00 AM METABOLIC PANEL TOTAL CA Returned [...] risk medication use Oct 14 2017 8:52AM Payers Insurance Name Company Name Plan Name Plan Number Policy Number Policy Group Number Start Date [facility]BS [id number] N/A Medicare RHC Medicare RHC [id number] N/A Medicare Part A Medicare - Lab/Xray [id number] N/A Medicare Part B Medicare Secondary [id number] N/A History of Encounters Visit Date Visit Type Provider 10/14/2017 Laboratory Laura Croft Sobia EMPLOYEE RELATIONS CONSULTANT 10/07/2017 Laboratory Laura Croft Sobia EMPLOYEE RELATIONS CONSULTANT 09/30/2017 Laboratory Laura Croft Sobia EMPLOYEE RELATIONS CONSULTANT 09/23/2017 Laboratory Laura Croft Sobia EMPLOYEE RELATIONS CONSULTANT 09/16/2017 Laboratory Laura Croft Sobia EMPLOYEE RELATIONS CONSULTANT 09/09/2017 Office visit Laura Guerda Ramsay EMPLOYEE RELATIONS CONSULTANT 09/09/2017 [facility] Bishop Nino MD 09/09/2017 Laboratory Laura Guerda Ramsay EMPLOYEE RELATIONS CONSULTANT 07/08/2017 Office visit Laura Guerda Ramsay EMPLOYEE RELATIONS CONSULTANT 07/03/2017 Office visit Laura Guerda Ramsay EMPLOYEE RELATIONS CONSULTANT 06/27/2017 Office visit Laura Guerda Ramsay EMPLOYEE RELATIONS CONSULTANT 06/12/2017 Office visit Laura Ramsay EMPLOYEE RELATIONS CONSULTANT 02/11/2017 Hospital Bishop Nino MD 02/11/2017 [facility] Tho Thornton MD 02/10/2017 [facility] Bishop Nino MD 06/29/2016 Office visit Roberta Jones MD 04/09/2016 [facility] Roberta Jones MD 03/21/2016 Office visit Roberta Jones MD 09/18/2015 [facility] Bishop Nino MD 02/08/2015 [facility] Bishop Nino MD 11/05/2013 [facility] Sebastian Keys MD 11/03/2013 Office visit Sebastian Keys MD 10/22/2013 [facility] Bishop Nino MD 08/24/2009 Laboratory Anne Lew MD
--- OUTSIDE RECORDS SUMMARY | 2018-03-22 07:50 | XMS REPORT ---
Author Author Laura Ramsay [facility] Address [address] [place], [place] [phone] Care Team Providers Care Media Planner Name Role Phone Laura Ramsay PCP Laura Ramsay PreferredProvider Allergies and Adverse Reactions Name Reaction Notes Tenormin Pravachol Zocor Crestor [place] 3 Plan of Treatment Not available. Medications [...] Start Date BCBS Bcbs [facility] [place] [id number] N/A Medicare RHC Medicare RHC [id number] N/A Medicare Part A Medicare - Lab/Xray [id number] N/A Medicare Part B Medicare Secondary [id number] N/A History of Encounters Visit Date Visit Type Provider 10/21/2017 Laboratory Laura Croft Swebrookengin TOP LIFT COMPRESSER 10/14/2017 Laboratory Laura Croft Swebrookengin TOP LIFT COMPRESSER 10/07/2017 Laboratory Laura Croft Swearengin TOP LIFT COMPRESSER 09/30/2017 Laboratory Laura Croft Swearengin TOP LIFT COMPRESSER 09/23/2017 Laboratory Laura Croft Swebrookengin TOP LIFT COMPRESSER 09/16/2017 Laboratory Laura Croft Swebrookengin TOP LIFT COMPRESSER 09/09/2017 Office visit Laura Lopezngin TOP LIFT COMPRESSER 09/09/2017 Hospital Bishop Nino MD 09/09/2017 Laboratory Laura Lopezngin TOP LIFT COMPRESSER 07/08/2017 Office visit Laura Lopezngin TOP LIFT COMPRESSER 07/03/2017 Office visit Laura Lopezngin TOP LIFT COMPRESSER 06/27/2017 Office visit Laura Lopezngin TOP LIFT COMPRESSER 06/12/2017 Office visit Laura Lopezngstanford TOP LIFT COMPRESSER 02/11/2017 [facility] Nino [facility] 02/11[facility] 02/10[facility] Bishop Nino MD 06/29/2016 Office visit Roberta Jones MD 04/09/2016 [facility] Roberta Jones MD 03/21/2016 Office visit Roberta Jones MD 09/18/2015 [facility] Bishop Nino MD 02/08/2015 [facility] Bishop Nino MD 11/05/2013 Hospital Sebastian Keys MD 11/03/2013 Office visit Sebastian Keys MD 10/22/2013 Hospital Bishop Nino MD 08/24/2009 Laboratory Anne Lew MD
--- OUTSIDE RECORDS SUMMARY | 2018-03-22 07:51 | XMS REPORT | CCD ---
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 Name Role Phone NAHUM ORTEGA, NGUYEN Cerna Attphys RODY ORTEGA, RADHA Trotter H., ZAC Hall NASST A., NAT NASST C., RAJNI NASST H., TARA NASST R., LAKSHMI NASST Vital Signs Vital Sign Value Unit Weight Measured 212.56 lbs Height 72 in BMI (Body Mass Index) 28.83 kg/m^2 BSA (Body Surface Area) 2.21 m^2 BP Systolic 95 mmHg BP Diastolic 73 mmHg BP Systolic 95 mmHg BP Diastolic 57 mmHg Respiratory Rate 20 bpm Respiratory Rate 18 bpm Heart Rate 73 bpm Heart Rate 77 bpm O2 % BldC Oximetry 100 % O2 % BldC Oximetry 95 % Body Temperature 96.4 degrees Body Temperature 97 degrees Allergies Allergy Code Allergy Type Reaction Status No Known Allergies 0 No known allergies Active Procedures Unknown. History of Immunizations Unknown. Problems Problem Code Start Date Resolved Date Status CHEST PAIN, RULE OUT ACUTE MYOCARDIAL INFARCTION 74501 Active Results TROPONIN-I ADV Test Name Code Test Result Test Units Test Date/ [place] [address]-8 0.0400 ng/mL 10/22/2013 08: 00 RAPID DRUG SCREEN Test Name Code Test Result Test Units Test Date/ Time Cannabinoids (THC) NEGATIVE N/A 10/22/2013 11:30 Phencyclidine (PCP) NEGATIVE N/A 10/22/2013 11: 30 Cocaine NEGATIVE N/A 10/22/2013 11:30 Methamphetamine NEGATIVE N/A 10/22/2013 11:30 Opiates NON-NEGATIVE N/A 10/22/2013 11:30 Amphetamine NEGATIVE N/A 10/22/2013 11:30 Benzodiazepines NEGATIVE N/A 10/22/2013 11:30 Tricyclic Antidepres NEGATIVE N/A 10/22/2013 11: 30 Methadone NEGATIVE N/A 10/22/2013 11:30 Barbiturates NEGATIVE N/A 10/22/2013 11:30 Oxycodone NEGATIVE N/A 10/22/2013 11:30 Propoxyphene (PPX) NEGATIVE N/A 10/22/2013 11:30 TROPONIN-I ADV Test Name Code Test Result Test Units Test Date/ [place] [address]-1 0.0400 ng/mL 10/22/2013 11: 55 PT/PTT Test Name Code Test Result Test Units Test Date/ Time PROTIME 89092-5 10.7000 SEC 10/22/2013 03:10 INR 1.0000 10/22/2013 03:10 PTT 3173-2 24.3000 SEC 10/22/2013 03:10 ALCOHOL Test Name Code Test Result Test Units Test Date/ Time ETHANOL 5640-8 213.0000 MG/DL 10/22/2013 03:10 TROPONIN-I ADV Test Name Code Test Result Test Units Test Date/ [place] [address]-1 0.0400 ng/mL 10/22/2013 03: 10 CBC W/ AUTO DIFF (RFLX MAN DIFF IF IND) Test Name Code Test Result Test Units Test Date/ Time WBC 78130-1 6.8000 TH/CMM 10/22/2013 03:10 RBC 789-8 5.5600 ML/CMM 10/22/2013 03:10 HGB 718-7 18.0000 G/DL 10/22/2013 03:10 HCT 4544-3 49.8000 % 10/22/2013 03:10 MCV 90.0000 FL 10/22/2013 03:10 MCH 32.4000 PG 10/22/2013 03:10 MCHC 36.1000 G/DL 10/22/2013 03:10 RDW SD 44.0000 FL 10/22/2013 03:10 RDW CV 13.4000 % 10/22/2013 03:10 MPV 8.9000 FL 10/22/2013 03:10 PLT 777-3 194.0000 TH/CMM 10/22/2013 03:10 NRBC# 0.0000 TH/CMM 10/22/2013 03:10 NRBC% 0.0000 /100WBC 10/22/2013 03:10 %NEUT 48.7000 % 10/22/2013 03:10 %LYMP 41.1000 % 10/22/2013 03:10 %MONO 8.0000 % 10/22/2013 03:10 %EOS 1.8000 % 10/22/2013 03:10 %BASO 0.4000 % 10/22/2013 03:10 #NEUT 3.3300 TH/CMM 10/22/2013 03:10 #LYMP 2.8100 TH/CMM 10/22/2013 03:10 #MONO 0.5500 TH/CMM 10/22/2013 03:10 #EOS 0.1200 TH/CMM 10/22/2013 03:10 #BASO 0.0300 TH/CMM 10/22/2013 03:10 MANUAL DIFF NOT IND N/A 10/22/2013 03:10 COMPREHENSIVE METABOLIC PANEL Test Name Code Test Result Test Units Test Date/ Time GLUCOSE 2345-7 91.0000 MG/DL 10/22/2013 03:10 SODIUM 2951-2 139.0000 MEQ/L 10/22/2013 03:10 POTASSIUM 2823-3 4.2000 MEQ/L 10/22/2013 03:10 CHLORIDE 2075-0 108.0000 MEQ/L 10/22/2013 03:10 CO2 2028-9 20.0000 MEQ/L 10/22/2013 03:10 BUN 3094-0 13.0000 MG/DL 10/22/2013 03:10 CREATININE 2160-0 0.9000 MG/DL 10/22/2013 03:10 SGOT/AST 1920-8 21.0000 IU/L 10/22/2013 03:10 SGPT/ALT 1742-6 20.0000 IU/L 10/22/2013 03:10 ALK PHOS 6768-6 87.0000 IU/L 10/22/2013 03:10 TOTAL PROTEIN 2885-2 7.4000 G/DL 10/22/2013 03:10 ALBUMIN 1751-7 4.4000 G/DL 10/22/2013 03:10 TOTAL BILI 1975-2 0.4000 MG/DL 10/22/2013 03:10 CALCIUM 33570-0 9.2000 MG/DL 10/22/2013 03:10 AGE 58.0000 yrs 10/22/2013 03:10 GFR NonAA 87.0000 10/22/2013 03:10 GFR AA 105.0000 10/22/2013 03:10 eGFR 60.0000 mL/min/1.7 10/22/2013 03:10 eGFR AA* 60.0000 mL/min/1.7 10/22/2013 03:10 Medications Medication Code Dose Units Frequency Route Modification Start Date/Time Stop Date/Time CARVEDILOL [COREG] TABLET : 6.25 MG 610169 12.5 MG BID PO 10/22/2013 04:18 BUPROPION [WELLBUTRIN] TABLET : 100 MG 571251 100 MG BID PO 10/22/2013 04:18 CITALOPRAM [CELEXA] TABLET : 20 MG 707420 20 MG DAILY PO 10/22/2013 04:18 GABAPENTIN (NEURONTIN) CAP:100 MG 162517 100 MG HS PO 10/22/2013 04:18 ORPHENADRINE ER (NORFLEX) 100MG TAB 889533 100 MG BID PO 10/22/2013 04:18 VITAMIN (LH SUB FOR ALL MULTIVITAMINS) 754879 1 EA DAILY PO 10/22/2013 04:18 NS 1000 ML IV [PREDEFINED] (7983) 640674 CONT IV IV 10/22/2013 04:20 ~~ NACL 0.9% (7983) 1000ML IV BAG 114930 4610 ML MORPHINE INJ: 2MG/ML 1 ML SYRINGE 756809 1 MG PRN IVP 10/22/2013 04:39 Vitamin C 1000MG Oral Tablet 108780 1298 MILLIGRAMS DAILY ORAL 10/22/2013 12:48 L-Lysine 500MG Oral Tablet 445112 2 TABLET NEEDED DAILY ORAL 10/22/2013 12:48 Coreg 12.5MG Oral Tablet 996333 1.5 TABLET TWO TIMES A DAY ORAL 10/22/2013 12:49 Nitrostat 0.4MG Sublingual Tablet 589562 0.4 MILLIGRAMS EVERY 5 MINUTES PRN CHEST PAIN SUBLINGUAL 2013 12:49 Baclofen 20MG Oral Tablet 229583 20 MILLIGRAMS FOUR TIMES A DAY NEEDED ORAL 10/22/2013 12:49 Aspirin 81MG Oral Tablet 526429 81 MILLIGRAMS DAILY ORAL 10/22/2013 12:49 DULCOLAX 0 1 TABLET TWO TIMES A DAY ORAL 10/22/2013 12:49 STOOL SOFTNER 0 1 TABLET DAILY ORAL 10/22/2013 12:49 Naproxen 500MG Oral Tablet 418809 500 MILLIGRAMS TWICE DAILY NEEDED ORAL 10/22/2013 12:49 Wellbutrin 100MG Oral Tablet 912319 100 MILLIGRAMS TWO TIMES A DAY ORAL 10/22/2013 12:49 Celexa 20MG Oral Tablet 655931 20 MILLIGRAMS DAILY ORAL 10/22/2013 12:49 Gabapentin 100MG Oral Tablet 410883 0.5 MILLIGRAMS AT BEDTIME ORAL 10/22/2013 12:49 Orphenadrine Citrate 100MG Oral Tablet 539962 100 MILLIGRAMS TWO TIMES A DAY NEEDED ORAL 2013 12:49 Folbee 1MG-2.5MG-25MG Oral Tablet 010756 1 EACH DAILY ORAL 10/22/2013 12:49 Coreg 12.5MG Oral Tablet 553979 12.5 MILLIGRAMS TWO TIMES A DAY ORAL COREG 0 6.25 MILLIGRAMS TWO TIMES A DAY ORAL Folbee 1MG-2.5MG-25MG Oral Tablet 232732 1 EACH DAILY ORAL Celexa 20MG Oral Tablet 687439 20 MILLIGRAMS DAILY ORAL Wellbutrin 100MG Oral Tablet 567877 100 MILLIGRAMS TWO TIMES A DAY ORAL Medications Administered Medication Dose Units Frequency Route Date/ Time of Last Dose CARVEDILOL [COREG] TABLET : 6.25 MG 12.5 MG BID PO 10/22/2013 08:33 BUPROPION [WELLBUTRIN] TABLET : 100 MG 100 MG BID PO 10/22/2013 08:33 CITALOPRAM [CELEXA] TABLET : 20 MG 20 MG DAILY PO 10/22/2013 08:33 ORPHENADRINE ER (NORFLEX) 100MG TAB 100 MG BID PO 10/22/2013 08:33 VITAMIN (LH SUB FOR ALL MULTIVITAMINS) 1 TAB DAILY PO 10/22/2013 08:33 MORPHINE INJ: 2MG/ML 1 ML SYRINGE 1 MG PRN IVP 10/22/2013 13:31 Encounters Unknown. Social History Smoking Status Code Start Date End Date Current every day smoker [id number] Patient Decision Aids Patient Decision Aid Angina Chest Pain PATIENT PORTAL ACCESS Instructions You were admitted to [facility] on 10/22/2013. You were discharged from [facility] on 10/22/2013. Should you have any questions prior to discharge, please contact a member of your healthcare team. If you have left the hospital and have any questions, please contact your primary care physician. HOME DIET: no added salt diet CONDITION AT DISMISSAL Stable. HOME MEDICATION INSTRUCTIONS : Take only the medications listed above.. Verbalizes understanding of instructions. HOME MEDS RETURNED TO PATIENT: N/A. ACTIVITY INSTRUCTIONS(list limitations): Activity as Tolerated, per Dr. Steward after heart cath PAIN MANAGEMENT: "Pain Management at Home" instruct given. Verbalizes understanding of instructions. FOLLOW UP CARE - SEE YOUR PHYSICIAN: You have appointment with Dr. Nahum dumont. 10/29 at 2:30pm FOLLOW UP APPOINTMENT: After discharge today drive to [facility] for admit for heart cath and EGD nothing to eat or drink PENDINGS TESTS: Results can be obtained through your PCP. PRIMARY CARE PHYSICIAN OR PRACTITIONER: Nguyen Sidhu MD, . CONTACT YOUR PHYSICIAN IF YOU EXPERIENCE ANY: pain, dizziness, numbness in your hands/feet, fever, Shortness of Breath. Difficulty swallowing, Swelling of extremities, Difficulty urinating. Odor or drainage from incision, Redness or soreness in calf area. Nausea/Vomiting. PERSONAL ITEMS RETURNED: N/A. INSTRUCTIONS GIVEN AND DISCHARGE TO: Patient. VOICES UNDERSTANDING OF INSTRUCTIONS: Yes. INSTRUCTIONS GIVEN BY (TYPE IN NAME AND DATE) Rajni Valles RN 10/22/13 SMOKING CESSATION: Smoking and second hand smoke is harmful. A pamphlet on smoking was given to you, at admission.. SPECIAL INSTRUCTIONS: nothing to eat or drink after lunch on 10/22/13 [address] to [facility] today 10/22/13 after discharge for admission for heart cath and EGD CHIEF COMPLAINT: CHEST PAIN Chief Complaint and Reason For Visit Chief Complaint Date of Onset CHEST PAIN R/O [place] Function Status Unknown. Plan of Care Unknown. Referral/Transition of Care Unknown.
--- OUTSIDE RECORDS SUMMARY | 2018-03-22 07:52 | XMS REPORT | Continuity of Care Document ---
Author Author [facility] Organization [facility] Address Unknown Phone Unavailable Allergies Active Description Code Type Severity Reaction Onset Reported/Identified Relationship to Patient Clinical Status Yes CRESTOR [id number] BRANDNAME N/A FLU LIKE SYMPTOMS Yes CRESTOR [id number] BRANDNAME N/A NIGHT RHOADES Yes NKDA - NO KNOWN DRUG ALLERGIES [id number] CLASS N/A N/A Yes OMEGA 3 [id number] BRANDNAME N/A FLU LIKE SYMPTOMS Yes OMEGA-3 FATTY ACIDS [id number] DRUG N/A N/A Yes PRAVACHOL [id number] BRANDNAME N/ A FLU LIKE SYMPTOMS Yes PRAVACHOL [id number] BRANDNAME N/ A NIGHTMARES Yes TENORMIN [id number] BRANDNAME N/ A FLU LIKE SYMPTOMS Yes TENORMIN [id number] BRANDNAME N/ A RASH Yes ZOCOR [id number] BRANDNAME N/A FLU LIKE SYMPTOMS Yes ZOCOR [id number] BRANDNAME N/A MYOPATHY Yes adhesive tape [id number] Drug Allergy Unknown N/A 08/28/2017 Yes atenolol [id number] Drug Allergy Unknown N/A 08/28/2017 Yes fish oil [id number] Drug Allergy Unknown N/A 08/28/2017 Yes pravastatin [id number] Drug Allergy Unknown N/A 08/28/2017 Yes rosuvastatin [id number] Drug Allergy Unknown N/A 08/28/2017 Yes simvastatin [id number] Drug Allergy Unknown N/A 08/28/2017 Medications There [...] C34.90 MALIGNANT [facility] 08/29/2017 JUD GALE DOTT D Ot Z01.818 ENCOUNTER FOR OTHER PREPROCEDURAL EXAMIN 08/29/2017 JUD GALE DOTT D Ot C34.12 MALIGNANT NEOPLASM OF UPPER LOBE, LEFT B 08/29/2017 JUD GALE DOTT D Ot I42.9 CARDIOMYOPATHY, UNSPECIFIED 08/29/2017 JUD GALE DOTT D Ot K21.9 GASTRO-ESOPHAGEAL REFLUX DISEASE WITHOUT 08/29/2017 JUD GALE DOTT D Ot Z79.899 OTHER MASONRY INSPECTOR (CURRENT) DRUG THERAPY 08/29/2017 SHAHLA DERAS VIVI D Ot Z87.891 PERSONAL HISTORY OF NICOTINE DEPENDENCE 08/30/2017 SHAHLA DERAS VIVI D Ot C34.12 MALIGNANT NEOPLASM OF UPPER LOBE, LEFT B 08/30/2017 JUD GALE DOTT D Ot I42.9 CARDIOMYOPATHY, UNSPECIFIED 08/30/2017 JUD GALE DOTT D Ot K21.9 GASTRO-ESOPHAGEAL REFLUX DISEASE WITHOUT 08/30/2017 JUD GALE DOTT D Ot Z79.899 OTHER NURSING HOME (CURRENT) DRUG THERAPY 08/30/2017 JUD GALE DOTT [...] NEOPLASM OF UPPER LOBE, LEFT B 09/04/2017 GALEVIVI OBRIEN DO Ot I42.9 CARDIOMYOPATHY, UNSPECIFIED 09/04/2017 GALEVIVI OBRIEN DO Ot K21.9 GASTRO-ESOPHAGEAL REFLUX DISEASE WITHOUT 09/04/2017 GALEVIVI OBRIEN DO Ot Z79.899 OTHER MASONRY INSPECTOR (CURRENT) DRUG THERAPY 09/04/2017 VIVI GALE DO Ot Z87.891 PERSONAL HISTORY OF NICOTINE DEPENDENCE 09/09/2017 P [id number] Malignant neoplasm of unspecified part of unspecified bronchus or lung 09/09/2017 IZABEL HERRERA MD Ot C34.12 MALIGNANT NEOPLASM OF UPPER LOBE, LEFT B 09/09/2017 IZABEL HERRERA MD Ot R13.10 DYSPHAGIA, UNSPECIFIED 09/09/2017 IZABEL HERRERA MD Ot R22.1 LOCALIZED SWELLING, MASS AND LUMP, NECK 09/09/2017 IZABEL HERRERA MD Ot Z87.891 PERSONAL HISTORY OF NICOTINE DEPENDENCE 09/12/2017 GUADALUPE PAN MD Ot C34.12 MALIGNANT NEOPLASM OF UPPER LOBE, LEFT B 09/12/2017 GUADALUPE PAN MD Ot F32.9 MAJOR DEPRESSIVE DISORDER, SINGLE EPISOD 09/12/2017 GUADALUPE PAN MD Ot G89.3 NEOPLASM RELATED PAIN (ACUTE) (CHRONIC) 09/12/2017 GUADALUPE PAN MD Ot I26.99 OTHER PULMONARY EMBOLISM WITHOUT ACUTE C 09/12/2017 GUADALUPE PAN MD Ot I42.9 CARDIOMYOPATHY, UNSPECIFIED 09/12/2017 GUADALUPE PAN MD Ot R09.1 PLEURISY 09/12/2017 GUADALUPE PAN MD Ot Z87.891 PERSONAL HISTORY OF NICOTINE DEPENDENCE 09/19/2017 IZABEL HERRERA MD Ot C34.12 MALIGNANT NEOPLASM OF UPPER LOBE, LEFT B 09/19/2017 IZABEL HERRERA MD Ot R13.10 DYSPHAGIA, UNSPECIFIED 09/19/2017 IZABEL HERRERA MD Ot R22.1 LOCALIZED SWELLING, MASS AND LUMP, NECK 09/19/2017 IZABEL HERRERA MD Ot Z87.891 PERSONAL HISTORY OF NICOTINE DEPENDENCE 09/25/2017 IZABEL HERRERA MD Ot C34.12 MALIGNANT NEOPLASM OF UPPER LOBE, LEFT B 09/25/2017 IZABEL HERRERA MD Ot R13.10 DYSPHAGIA, UNSPECIFIED 09/25/2017 IZABEL HERRERA MD Ot R22.1 LOCALIZED SWELLING, MASS AND LUMP, NECK 09/25/2017 IZABEL HERRERA MD Ot Z87.891 PERSONAL HISTORY OF NICOTINE DEPENDENCE 10/02/2017 IZABEL HERRERA MD Ot C34.12 MALIGNANT NEOPLASM OF UPPER LOBE, LEFT B 10/02/2017 IZABEL HERRERA MD Ot R13.10 DYSPHAGIA, UNSPECIFIED 10/02/2017 IZABEL HERRERA MD Ot R22.1 LOCALIZED SWELLING, MASS AND LUMP, NECK 10/02/2017 IZABEL HERRERA MD Ot Z87.891 PERSONAL HISTORY OF NICOTINE DEPENDENCE 10/09/2017 IZABEL HERRERA MD Ot C34.90 MALIGNANT NEOPLASM OF UNSP PART OF UNSP 10/14/2017 IZABEL HERRERA MD Ot C34.90 MALIGNANT NEOPLASM OF UNSP PART OF UNSP 10/16/2017 IZABEL HERRERA MD Ot C34.12 MALIGNANT NEOPLASM OF UPPER LOBE, LEFT B 10/16/2017 IZABEL HERRERA MD Ot R13.10 DYSPHAGIA, UNSPECIFIED 10/16/2017 IZABEL HERRERA MD Ot R22.1 LOCALIZED SWELLING, MASS AND LUMP, NECK 10/16/2017 IZABEL HERRERA MD Ot Z87.891 PERSONAL HISTORY OF NICOTINE DEPENDENCE 10/23/2017 IZABEL HERRERA MD Ot C34.92 MALIGNANT NEOPLASM OF UNSP PART OF LEFT 11/06/2017 IZABEL HERRERA MD Ot C34.92 MALIGNANT NEOPLASM OF UNSP PART OF LEFT 11/19/2017 IZABEL HERRERA MD Ot C34.12 MALIGNANT NEOPLASM OF UPPER LOBE, LEFT B 11/19/2017 IZABEL HERRERA MD Ot C77.1 SECONDARY AND UNSP MALIGNANT NEOPLASM OF 11/19/2017 IZABEL HERRERA MD Ot C78.7 SECONDARY MALIG NEOPLASM OF LIVER AND IN 11/19/2017 IZABEL HERRERA MD Ot C79.51 SECONDARY MALIGNANT NEOPLASM OF BONE 11/19/2017 IZABEL HERRERA MD Ot I26.99 OTHER PULMONARY EMBOLISM WITHOUT ACUTE C 11/19/2017 IZABEL HERRERA MD Ot R13.10 DYSPHAGIA, UNSPECIFIED 11/19/2017 IZABEL HERRERA MD Ot R22.1 LOCALIZED SWELLING, MASS AND LUMP, NECK 11/19/2017 IZABEL HERRERA MD Ot Z51.11 ENCOUNTER FOR ANTINEOPLASTIC CHEMOTHERAP 11/19/2017 IZABEL HERRERA MD Ot Z79.01 NURSING HOME (CURRENT) USE OF ANTICOAGULANT 11/19/2017 IZABEL HERRERA MD Ot Z79.899 OTHER MASONRY INSPECTOR (CURRENT) DRUG THERAPY 11/19/2017 IZABEL HERRERA MD Ot Z87.891 PERSONAL HISTORY OF NICOTINE DEPENDENCE 11/20/2017 IZABEL HERRERA MD Ot C34.12 MALIGNANT NEOPLASM OF UPPER LOBE, LEFT B 11/20/2017 IZABEL HERRERA MD Ot C77.1 SECONDARY AND UNSP MALIGNANT NEOPLASM OF 11/20/2017 IZABEL HERRERA MD Ot C78.7 SECONDARY MALIG NEOPLASM OF LIVER AND IN 11/20/2017 ZIABEL HERRERA MD Ot C79.51 SECONDARY MALIGNANT NEOPLASM OF BONE 11/20/2017 IZABEL HERRERA MD Ot I26.99 OTHER PULMONARY EMBOLISM WITHOUT ACUTE C 11/20/2017 IZABEL HERRERA MD Ot R13.10 DYSPHAGIA, UNSPECIFIED 11/20/2017 IZABEL HERRERA MD Ot Z51.11 ENCOUNTER FOR ANTINEOPLASTIC CHEMOTHERAP 11/20/2017 IZABEL HERRERA MD Ot Z79.01 MASONRY INSPECTOR (CURRENT) USE OF ANTICOAGULANT 11/20/2017 IZABEL HERRERA MD Ot Z79.899 OTHER MASONRY INSPECTOR (CURRENT) DRUG THERAPY 11/20/2017 IZABEL HERRERA MD Ot Z87.891 PERSONAL HISTORY OF NICOTINE DEPENDENCE 11/25/2017 IZABEL HERRERA MD Ot C34.12 MALIGNANT NEOPLASM OF UPPER LOBE, LEFT B 11/25/2017 IZABEL HERRERA MD Ot C77.1 SECONDARY AND UNSP MALIGNANT NEOPLASM OF 11/25/2017 IZABEL HERRERA MD Ot C78.7 SECONDARY MALIG NEOPLASM OF LIVER AND IN 11/25/2017 IZABEL HERRERA MD Ot C79.51 SECONDARY MALIGNANT NEOPLASM OF BONE 11/25/2017 IZABEL HERRERA MD Ot I26.99 OTHER PULMONARY EMBOLISM WITHOUT ACUTE C 11/25/2017 IZABEL HERRERA MD Ot R13.10 DYSPHAGIA, UNSPECIFIED 11/25/2017 IZABEL HERRERA MD Ot Z51.11 ENCOUNTER FOR ANTINEOPLASTIC CHEMOTHERAP 11/25/2017 IZABEL HERRERA MD Ot Z79.01 NURSING HOME (CURRENT) USE OF ANTICOAGULANT 11/25/2017 IZABEL HERRERA MD Ot Z79.899 OTHER NURSING HOME (CURRENT) DRUG THERAPY 11/25/2017 IZABEL HERRERA MD Ot Z87.891 PERSONAL HISTORY OF NICOTINE DEPENDENCE 11/26/2017 IZABEL HERRERA MD Ot C34.12 MALIGNANT NEOPLASM OF UPPER LOBE, LEFT B 11/26/2017 IZABEL HERRERA MD Ot R13.10 DYSPHAGIA, UNSPECIFIED 11/26/2017 IZABEL HERRERA MD Ot R22.1 LOCALIZED SWELLING, MASS AND LUMP, NECK 11/26/2017 IZABEL HERRERA MD Ot Z87.891 PERSONAL HISTORY OF NICOTINE DEPENDENCE 11/28/2017 IZABEL HERRERA MD Ot C22.8 MALIGNANT NEOPLASM OF LIVER, PRIMARY, UN 11/28/2017 IZABEL HERRERA MD Ot C34.90 MALIGNANT NEOPLASM OF UNSP PART OF UNSP 11/28/2017 IZABEL HERRERA MD Ot 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 11/28/2017 IZABEL HERRERA MD Ot H53.8 OTHER VISUAL DISTURBANCES 11/28/2017 IZABEL HERRERA MD Ot J32.8 OTHER CHRONIC SINUSITIS 11/28/2017 IZABEL HERRERA MD Ot C34.12 MALIGNANT NEOPLASM OF UPPER LOBE, LEFT B 11/28/2017 IZABEL HERRERA MD Ot R13.10 DYSPHAGIA, UNSPECIFIED 11/28/2017 IZABEL HERRERA MD Ot R22.1 LOCALIZED SWELLING, MASS AND LUMP, NECK 11/28/2017 IZABEL HERRERA MD Ot Z87.891 PERSONAL HISTORY OF NICOTINE DEPENDENCE 11/28/2017 IZABEL HERRERA MD Ot C34.12 MALIGNANT NEOPLASM OF UPPER LOBE, LEFT B 11/28/2017 IZABEL HERRERA MD Ot C77.1 SECONDARY AND UNSP MALIGNANT NEOPLASM OF 11/28/2017 IZABEL HERRERA MD Ot 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 11/28/2017 IZABEL HERRERA MD Ot 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 11/28/2017 IZABEL HERRERA MD Ot C78.7 SECONDARY MALIG NEOPLASM OF LIVER AND IN 11/28/2017 IZABEL HERRERA MD Ot C79.51 SECONDARY MALIGNANT NEOPLASM OF BONE 11/28/2017 IZABEL HERRERA MD Ot 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 11/28/2017 IZABEL HERRERA MD Ot M25.551 PAIN IN RIGHT HIP 11/28/2017 IZABEL HERRERA MD Ot M25.552 PAIN IN LEFT HIP 11/28/2017 IZABEL HERRERA MD Ot M54.5 LOW BACK PAIN 11/28/2017 IZABEL HERRERA MD Ot Z79.01 NURSING HOME (CURRENT) USE OF ANTICOAGULANT 11/28/2017 IZABEL HERRERA MD Ot Z79.899 OTHER MASONRY INSPECTOR (CURRENT) DRUG THERAPY 11/28/2017 IZABEL HERRERA MD Ot Z87.891 PERSONAL HISTORY OF NICOTINE DEPENDENCE 11/28/2017 IZABEL HERRERA MD Ot C34.12 MALIGNANT NEOPLASM OF UPPER LOBE, LEFT B 11/28/2017 IZABEL HERRERA MD Ot C77.1 SECONDARY AND UNSP MALIGNANT NEOPLASM OF 11/28/2017 IZABEL HERRERA MD Ot 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 11/28/2017 IZABEL HERRERA MD Ot 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891 PERSONAL HISTORY OF NICOTINE DEPENDENCE 12/25/2017 IZABEL HERRERA MD Ot C34.12 MALIGNANT NEOPLASM OF UPPER LOBE, LEFT B 12/25/2017 IZABEL HERRERA MD Ot C77.1 SECONDARY AND UNSP MALIGNANT NEOPLASM OF 12/25/2017 IZABEL HERRERA MD Ot 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 12/25/2017 IZABEL HERRERA MD, Ot 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 12/25/2017 IZABEL HERRERA MD, Ot C78.7 SECONDARY MALIG NEOPLASM OF LIVER AND IN 12/25/2017 IZABEL HERRERA MD, Ot C79.51 SECONDARY MALIGNANT NEOPLASM OF BONE 12/25/2017 IZABEL HERRERA MD Ot 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 12/25/2017 IZABEL HERRERA MD Ot M25.551 PAIN IN RIGHT HIP 12/25/2017 IZABEL HERRERA MD, Ot M25.552 PAIN IN LEFT HIP 12/25/2017 IZABEL HERRERA MD Ot M54.5 LOW BACK PAIN 12/25/2017 IZABEL HERRERA MD Ot Z79.01 NURSING HOME (CURRENT) USE OF ANTICOAGULANT 12/25/2017 IZABEL HERRERA MD, Ot Z79.899 OTHER NURSING HOME (CURRENT) DRUG THERAPY 12/25/2017 IZABEL HERRERA MD, Ot Z87.891 PERSONAL HISTORY OF NICOTINE DEPENDENCE 12/27/2017 IZABEL HERRERA MD Ot C22.8 MALIGNANT NEOPLASM OF LIVER, PRIMARY, UN 12/27/2017 IZABEL HERRERA MD, Ot C34.12 MALIGNANT NEOPLASM OF UPPER LOBE, LEFT B 12/27/2017 IZABEL HERRERA MD Ot 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 12/27/2017 IZABEL HERRERA MD Ot H53.8 OTHER VISUAL DISTURBANCES 12/27/2017 IZABEL HERRERA MD, Ot J32.8 OTHER CHRONIC SINUSITIS 12/27/2017 IZABEL HERRERA MD Ot R27.0 ATAXIA, UNSPECIFIED 12/27/2017 IZABEL HERRERA MD Ot R51 HEADACHE 12/27/2017 IZABEL HERRERA MD Ot R59.1 GENERALIZED ENLARGED LYMPH NODES 01/07/2018 IZABEL HERRERA MD Ot M47.812 SPONDYLOSIS W/O MYELOPATHY OR RADICULOPA 01/07/2018 IZABEL HERRERA MD Ot M50.322 OTHER CERVICAL DISC DEGENERATION AT C5-C 01/07/2018 IZABEL HERRERA MD Ot 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 01/07/2018 IZABEL HERRERA MD Ot M47.812 SPONDYLOSIS W/O MYELOPATHY OR RADICULOPA 01/07/2018 IZABEL HERRERA MD Ot M50.322 OTHER CERVICAL DISC DEGENERATION AT C5-C 01/07/2018 IZABEL HERRERA MD Ot 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 01/08/2018 IZABEL HERRERA MD Ot C34.12 MALIGNANT NEOPLASM OF UPPER LOBE, LEFT B 01/08/2018 IZABEL HERRERA MD Ot C77.1 SECONDARY AND UNSP MALIGNANT NEOPLASM OF 01/08/2018 IZABEL HERRERA MD Ot 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 01/08/2018 IZABLE HERRERA MD Ot 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 01/08/2018 IZABEL HERRERA MD Ot C78.7 SECONDARY MALIG NEOPLASM OF LIVER AND IN 01/08/2018 IZABEL HERRERA MD Ot C79.51 SECONDARY MALIGNANT NEOPLASM OF BONE 01/08/2018 IZABEL HERRERA MD Ot 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 01/08/2018 IZABEL HERRERA MD Ot M25.551 PAIN IN RIGHT HIP 01/08/2018 IZABEL HERRERA MD Ot M25.552 PAIN IN LEFT HIP 01/08/2018 IZABEL HERRERA MD Ot M54.5 LOW BACK PAIN 01/08/2018 IZABEL HERRERA MD Ot Z51.11 ENCOUNTER FOR ANTINEOPLASTIC CHEMOTHERAP 01/08/2018 IZABEL HERRERA MD Ot Z79.01 NURSING HOME (CURRENT) USE OF ANTICOAGULANT 01/08/2018 IZABEL HERRERA MD Ot Z79.899 OTHER NURSING HOME (CURRENT) DRUG THERAPY 01/08/2018 IZABEL HERRERA MD Ot Z87.891 PERSONAL HISTORY OF NICOTINE DEPENDENCE 02/05/2018 IZABEL HERRERA MD Ot C34.12 MALIGNANT NEOPLASM OF UPPER LOBE, LEFT B 02/05/2018 IZABEL HERRERA MD Ot C77.1 SECONDARY AND UNSP MALIGNANT NEOPLASM OF 02/05/2018 IZABEL HERRERA MD Ot 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 02/05/2018 IZABEL HERRERA MD Ot 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 02/05/2018 IZABEL HERRERA MD Ot C78.7 SECONDARY MALIG NEOPLASM OF LIVER AND IN 02/05/2018 IZABEL HERRERA MD Ot C79.51 SECONDARY MALIGNANT NEOPLASM OF BONE 02/05/2018 IZABEL HERRERA MD Ot 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 02/05/2018 IZABEL HERRERA MD Ot M25.551 PAIN IN RIGHT HIP 02/05/2018 IZABEL HERRERA MD Ot M25.552 PAIN IN LEFT HIP 02/05/2018 IZABEL HERRERA MD Ot M54.5 LOW BACK PAIN 02/05/2018 IZABEL HERRERA MD Ot Z51.11 ENCOUNTER FOR ANTINEOPLASTIC CHEMOTHERAP 02/05/2018 IZABEL HERRERA MD Ot Z79.01 NURSING HOME (CURRENT) USE OF ANTICOAGULANT 02/05/2018 IZABEL HERRERA MD Ot Z79.899 OTHER MASONRY INSPECTOR (CURRENT) DRUG THERAPY 02/05/2018 IZABEL HERRERA MD Ot Z87.891 PERSONAL HISTORY OF NICOTINE DEPENDENCE 02/27/2018 IZABEL HERRERA MD Ot C34.12 MALIGNANT NEOPLASM OF UPPER LOBE, LEFT B 02/27/2018 IZABEL HERRERA MD Ot C77.1 SECONDARY AND UNSP MALIGNANT NEOPLASM OF 02/27/2018 IZABEL HERRERA MD Ot 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 02/27/2018 IZABEL HERRERA MD Ot 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 02/27/2018 IZABEL HERRERA MD Ot C78.7 SECONDARY MALIG NEOPLASM OF LIVER AND IN 02/27/2018 IZABEL HERRERA MD Ot C79.51 SECONDARY MALIGNANT NEOPLASM OF BONE 02/27/2018 IZABEL HERRERA MD Ot 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 02/27/2018 IZABEL HERRERA MD Ot M25.551 PAIN IN RIGHT HIP 02/27/2018 IZABEL HERRERA MD Ot M25.552 PAIN IN LEFT HIP 02/27/2018 IZABEL HERRERA MD Ot M54.5 LOW BACK PAIN 02/27/2018 IZABEL HERRERA MD Ot Z51.11 ENCOUNTER FOR ANTINEOPLASTIC CHEMOTHERAP 02/27/2018 IZABEL HERRERA MD Ot Z79.01 NURSING HOME (CURRENT) USE OF ANTICOAGULANT 02/27/2018 IZABEL HERREAR MD Ot Z79.899 OTHER MASONRY INSPECTOR (CURRENT) DRUG THERAPY 02/27/2018 IZABEL HERRERA MD Ot Z87.891 PERSONAL HISTORY OF NICOTINE DEPENDENCE 03/06/2018 IZABEL HERRERA MD Ot C34.92 MALIGNANT NEOPLASM OF UNSP PART OF LEFT 03/06/2018 IZABEL HERRERA MD Ot C22.8 MALIGNANT NEOPLASM OF LIVER, PRIMARY, UN 03/06/2018 IZABEL HERRERA MD Ot C34.12 MALIGNANT NEOPLASM OF UPPER LOBE, LEFT B 03/06/2018 IZABEL HERRERA MD Ot 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 03/06/2018 IZABEL HERRERA MD Ot H53.8 OTHER VISUAL DISTURBANCES 03/06/2018 IZABEL HERRERA MD Ot J32.8 OTHER CHRONIC SINUSITIS 03/06/2018 IZABEL HERRERA MD Ot R27.0 ATAXIA, UNSPECIFIED 03/06/2018 IZABEL HERRERA MD Ot R51 HEADACHE 03/06/2018 IZABEL HERRERA MD, Ot R59.1 GENERALIZED ENLARGED LYMPH NODES 03/06/2018 IZABEL EHRRERA MD Ot M47.812 SPONDYLOSIS W/O MYELOPATHY OR RADICULOPA 03/06/2018 IZABEL HERRERA MD Ot M50.322 OTHER CERVICAL DISC DEGENERATION AT C5-C 03/06/2018 IZABEL HERRERA MD, Ot 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 03/06/2018 IZABEL HERRERA MD Ot C34.12 MALIGNANT NEOPLASM OF UPPER LOBE, LEFT B 03/06/2018 IZABEL HERRERA MD Ot C77.1 SECONDARY AND UNSP MALIGNANT NEOPLASM OF 03/06/2018 IZABEL HERRERA MD Ot 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 03/06/2018 IZABEL HERRERA MD, Ot 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 03/06/2018 IZABEL HERRERA MD Ot C78.7 SECONDARY MALIG NEOPLASM OF LIVER AND IN 03/06/2018 IZABEL HERRERA MD Ot C79.51 SECONDARY MALIGNANT NEOPLASM OF BONE 03/06/2018 IZABEL HERRERA MD Ot 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 03/06/2018 IZABEL HERRERA MD Ot M25.551 PAIN IN RIGHT HIP 03/06/2018 IZABEL HERRERA MD Ot M25.552 PAIN IN LEFT HIP 03/06/2018 IZABEL HERRERA MD Ot M54.5 LOW BACK PAIN 03/06/2018 IZABEL HERRERA MD Ot Z51.11 ENCOUNTER FOR ANTINEOPLASTIC CHEMOTHERAP 03/06/2018 IZABEL HERRERA MD Ot Z79.01 MASONRY INSPECTOR (CURRENT) USE OF ANTICOAGULANT 03/06/2018 IZABEL HERRERA MD Ot Z79.899 OTHER NURSING HOME (CURRENT) DRUG THERAPY 03/06/2018 IZABEL HERRERA MD Ot Z87.891 PERSONAL HISTORY OF NICOTINE DEPENDENCE 03/18/2018 IZABEL HERRERA MD Ot C34.12 MALIGNANT NEOPLASM OF UPPER LOBE, LEFT B 03/18/2018 IZABEL HERREAR MD Ot C77.1 SECONDARY AND UNSP MALIGNANT NEOPLASM OF 03/18/2018 IZABEL HERRERA MD, Ot 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 03/18/2018 IZABEL HERRERA MD, Ot 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 03/18/2018 IZABEL HERRERA MD, Ot C78.7 SECONDARY MALIG NEOPLASM OF LIVER AND IN 03/18/2018 IZABEL HERRERA MD, Ot C79.51 SECONDARY MALIGNANT NEOPLASM OF BONE 03/18/2018 IZABEL HERRERA MD Ot 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 03/18/2018 IZABEL HERRERA MD, Ot M25.551 PAIN IN RIGHT HIP 03/18/2018 IZABEL HERRERA MD, Ot M25.552 PAIN IN LEFT HIP 03/18/2018 IZABEL HERRERA MD, Ot M54.5 LOW BACK PAIN 03/18/2018 IZABEL HERRERA MD, Ot Z51.11 ENCOUNTER FOR ANTINEOPLASTIC CHEMOTHERAP 03/18/2018 IZABEL HERRERA MD, Ot Z79.01 NURSING HOME (CURRENT) USE OF ANTICOAGULANT 03/18/2018 IZABEL HERRERA MD, Ot Z79.899 OTHER NURSING HOME (CURRENT) DRUG THERAPY 03/18/2018 IZABEL HERRERA MD, Ot Z87.891 PERSONAL HISTORY OF NICOTINE DEPENDENCE 03/18/2018 IZABEL HERRERA MD, Ot C34.92 MALIGNANT NEOPLASM OF UNSP PART OF LEFT 03/18/2018 MICHAEL REYES APRN Ot C34.90 MALIGNANT NEOPLASM OF UNSP PART OF UNSP 03/18/2018 MICHAEL REYES APRN Ot G47.34 IDIO SLEEP RELATED NONOBSTRUCTIVE ALVEOL 03/18/2018 MICHAEL REYES APRN Ot Z79.01 MASONRY INSPECTOR (CURRENT) USE OF ANTICOAGULANT 03/18/2018 MICHAEL REYES APRN Ot Z86.711 PERSONAL HISTORY OF PULMONARY EMBOLISM 03/18/2018 IZABEL HERRERA MD, Ot C22.8 MALIGNANT NEOPLASM OF LIVER, PRIMARY, UN 03/18/2018 IZABEL HERRERA MD, Ot C34.12 MALIGNANT NEOPLASM OF UPPER LOBE, LEFT B 03/18/2018 IZABEL HERRERA MD, Ot 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 03/18/2018 IZABEL HERRERA MD, Ot H53.8 OTHER VISUAL DISTURBANCES 03/18/2018 IZABEL HERRERA MD, Ot J32.8 OTHER CHRONIC SINUSITIS 03/18/2018 IZABEL HERRERA MD, Ot R27.0 ATAXIA, UNSPECIFIED 03/18/2018 IZABEL HERRERA MD, Ot R51 HEADACHE 03/18/2018 IZABEL HERRERA MD Ot R59.1 GENERALIZED ENLARGED LYMPH NODES 03/18/2018 IZABEL HERRERA MD Ot M47.812 SPONDYLOSIS W/O MYELOPATHY OR RADICULOPA 03/18/2018 IZABEL HERRERA MD Ot M50.322 OTHER CERVICAL DISC DEGENERATION AT C5-C 03/18/2018 IZABEL HERRERA MD Ot 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 03/18/2018 IZABEL HERRERA MD Ot C34.12 MALIGNANT NEOPLASM OF UPPER LOBE, LEFT B 03/18/2018 IZABEL HERRERA MD, Ot C77.1 SECONDARY AND UNSP MALIGNANT NEOPLASM OF 03/18/2018 IZABEL HERRERA MD, Ot 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 03/18/2018 IZABEL HERRERA MD, Ot 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 03/18/2018 IZABEL HERRERA MD Ot C78.7 SECONDARY MALIG NEOPLASM OF LIVER AND IN 03/18/2018 IZABEL HERRERA MD, Ot C79.51 SECONDARY MALIGNANT NEOPLASM OF BONE 03/18/2018 IZABEL HERRERA MD Ot 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 03/18/2018 IZABEL HERRERA MD Ot M25.551 PAIN IN RIGHT HIP 03/18/2018 IZABEL HERRERA MD, Ot M25.552 PAIN IN LEFT HIP 03/18/2018 IZABEL HERRERA MD, Ot M54.5 LOW BACK PAIN 03/18/2018 IZABEL HERRERA MD Ot Z51.11 ENCOUNTER FOR ANTINEOPLASTIC CHEMOTHERAP 03/18/2018 IZABEL HERRERA MD Ot Z79.01 MASONRY INSPECTOR (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) USE OF ANTICOAGULANT 03/18/2018 IZABEL HERRERA MD, Ot Z79.899 OTHER MASONRY INSPECTOR (CURRENT) DRUG THERAPY 03/18/2018 IZABEL HERRERA MD, Ot Z87.891 PERSONAL HISTORY OF NICOTINE DEPENDENCE [...] 09/11/17 05:45 BNP level 41.5 pg/mL <100.0 Complete blood count (CBC) with automated white blood cell (WBC) differential - 03/21/18 13:29 Blood leukocytes automated count (number/volume) 7.2 10*3/uL 4.3-11.0 Blood erythrocytes automated count (number/volume) 3.50 10*6/uL 4.35-5.85 Venous blood hemoglobin measurement (mass/volume) 11.0 g/dL 13.3-17.7 Blood hematocrit (volume fraction) 33 % 40-54 Automated erythrocyte mean corpuscular volume 93 [foz_us] 80-99 Automated erythrocyte mean corpuscular hemoglobin (mass per erythrocyte) 31 pg 25-34 Automated erythrocyte mean corpuscular hemoglobin concentration measurement ( mass/volume) 34 g/dL 32-36 Automated erythrocyte distribution width ratio 13.3 % 10.0-14.5 Automated blood platelet count (count/volume) 178 10*3/uL 130-400 Automated blood platelet mean volume measurement 8.6 [foz_us] 7.4-10.4 Automated blood neutrophils/100 leukocytes 76 % 42-75 Automated blood lymphocytes/100 leukocytes 12 % 12-44 Blood monocytes/100 leukocytes 11 % 0-12 Automated blood eosinophils/100 leukocytes 0 % 0-10 Automated blood basophils/100 leukocytes 0 % 0-10 Blood neutrophils automated count (number/volume) 5.4 10*3 1.8-7.8 Blood lymphocytes automated count (number/volume) 0.9 10*3 1.0-4.0 Blood monocytes automated count (number/volume) 0.8 10*3 0.0-1.0 Automated eosinophil count 0.0 10*3/uL 0.0-0.3 Automated blood basophil count (count/volume) 0.0 10*3/uL 0.0-0.1 Comprehensive metabolic panel - 03/21/18 13:29 Serum or plasma sodium measurement (moles/volume) 140 mmol/L 135-145 Serum or plasma potassium measurement (moles/volume) 2.5 mmol/L 3.6-5.0 Serum or plasma chloride measurement (moles/volume) 120 mmol/L 98-107 Carbon dioxide 13 mmol/L 21-32 Serum or plasma anion gap determination (moles/volume) 7 mmol/L 5-14 Serum or plasma urea nitrogen measurement (mass/volume) 10 mg/dL 7-18 Serum or plasma creatinine measurement (mass/volume) 0.50 mg/dL 0.60-1.30 Serum or plasma urea nitrogen/creatinine mass ratio 20 NRG Serum or plasma creatinine measurement with calculation of estimated glomerular filtration rate > NRG Serum or plasma glucose measurement (mass/volume) 69 mg/dL 70-105 Serum or plasma calcium measurement (mass/volume) 5.5 mg/dL 8.5-10.1 Serum or plasma total bilirubin measurement (mass/volume) 0.3 mg/dL 0.1-1.0 Serum or plasma alkaline phosphatase measurement (enzymatic activity/volume) 51 U/L 40-136 Serum or plasma aspartate aminotransferase measurement (enzymatic activity/ volume) 17 U/L 5-34 Serum or plasma alanine aminotransferase measurement (enzymatic activity/volume ) 14 U/L 0-55 Serum or plasma protein measurement (mass/volume) 4.4 g/dL 6.4-8.2 Serum or plasma albumin measurement (mass/volume) 2.4 g/dL 3.2-4.5 CALCIUM CORRECTED 6.8 mg/dL 8.5-10.1 Serum or plasma troponin i.cardiac measurement (mass/volume) - 03/21/18 13:29 Serum or plasma troponin i.cardiac measurement (mass/volume) < ng/ mL <0.30 Complete blood count (CBC) with automated white blood cell (WBC) differential - 03/21/18 14:08 Blood leukocytes automated count (number/volume) 9.3 10*3/uL 4.3-11.0 Blood erythrocytes automated count (number/volume) 5.04 10*6/uL 4.35-5.85 Venous blood hemoglobin measurement (mass/volume) 15.8 g/dL 13.3-17.7 Blood hematocrit (volume fraction) 46 % 40-54 Automated erythrocyte mean corpuscular volume 91 [foz_us] 80-99 Automated erythrocyte mean corpuscular hemoglobin (mass per erythrocyte) 31 pg 25-34 Automated erythrocyte mean corpuscular hemoglobin concentration measurement ( mass/volume) 35 g/dL 32-36 Automated erythrocyte distribution width ratio 13.7 % 10.0-14.5 Automated blood platelet count (count/volume) 206 10*3/uL 130-400 Automated blood platelet mean volume measurement 8.6 [foz_us] 7.4-10.4 Automated blood neutrophils/100 leukocytes 75 % 42-75 Automated blood lymphocytes/100 leukocytes 13 % 12-44 Blood monocytes/100 leukocytes 11 % 0-12 Automated blood eosinophils/100 leukocytes 0 % 0-10 Automated blood basophils/100 leukocytes 0 % 0-10 Blood neutrophils automated count (number/volume) 7.0 10*3 1.8-7.8 Blood lymphocytes automated count (number/volume) 1.2 10*3 1.0-4.0 Blood monocytes automated count (number/volume) 1.0 10*3 0.0-1.0 Automated eosinophil count 0.0 10*3/uL 0.0-0.3 Automated blood basophil count (count/volume) 0.0 10*3/uL 0.0-0.1 Comprehensive metabolic panel - 03/21/18 14:08 Serum or plasma sodium measurement (moles/volume) 135 mmol/L 135-145 Serum or plasma potassium measurement (moles/volume) 4.0 mmol/L 3.6-5.0 Serum or plasma chloride measurement (moles/volume) 103 mmol/L 98-107 Carbon dioxide 19 mmol/L 21-32 Serum or plasma anion gap determination (moles/volume) 13 mmol/L 5-14 Serum or plasma urea nitrogen measurement (mass/volume) 14 mg/dL 7-18 Serum or plasma creatinine measurement (mass/volume) 0.85 mg/dL 0.60-1.30 Serum or plasma urea nitrogen/creatinine mass ratio 16 NRG Serum or plasma creatinine measurement with calculation of estimated glomerular filtration rate > NRG Serum or plasma glucose measurement (mass/volume) 101 mg/dL 70-105 Serum or plasma calcium measurement (mass/volume) 9.4 mg/dL 8.5-10.1 Serum or plasma total bilirubin measurement (mass/volume) 0.6 mg/dL 0.1-1.0 Serum or plasma alkaline phosphatase measurement (enzymatic activity/volume) 89 U/L 40-136 Serum or plasma aspartate aminotransferase measurement (enzymatic activity/ volume) 25 U/L 5-34 Serum or plasma alanine aminotransferase measurement (enzymatic activity/volume ) 21 U/L 0-55 Serum or plasma protein measurement (mass/volume) 7.6 g/dL 6.4-8.2 Serum or plasma albumin measurement (mass/volume) 4.1 g/dL 3.2-4.5 CALCIUM CORRECTED 9.3 mg/dL 8.5-10.1 Serum or plasma troponin i.cardiac measurement (mass/volume) - 03/21/18 14:08 Serum or plasma troponin i.cardiac measurement (mass/volume) < ng/ mL <0.30 Blood lactic acid measurement (moles/volume) - 03/21/18 15:24 Blood lactic acid measurement (moles/volume) 1.46 mmol/L 0.50-2.00 Complete blood count (CBC) with automated white blood cell (WBC) differential - 03/22/18 05:35 Blood leukocytes automated count (number/volume) 8.9 10*3/uL 4.3-11.0 Blood erythrocytes automated count (number/volume) 4.41 10*6/uL 4.35-5.85 Venous blood hemoglobin measurement (mass/volume) 14.2 g/dL 13.3-17.7 Blood hematocrit (volume fraction) 41 % 40-54 Automated erythrocyte mean corpuscular volume 93 [foz_us] 80-99 Automated erythrocyte mean corpuscular hemoglobin (mass per erythrocyte) 32 pg 25-34 Automated erythrocyte mean corpuscular hemoglobin concentration measurement ( mass/volume) 35 g/dL 32-36 Automated erythrocyte distribution width ratio 13.5 % 10.0-14.5 Automated blood platelet count (count/volume) 186 10*3/uL 130-400 Automated blood platelet mean volume measurement 8.4 [foz_us] 7.4-10.4 Automated blood neutrophils/100 leukocytes 72 % 42-75 Automated blood lymphocytes/100 leukocytes 14 % 12-44 Blood monocytes/100 leukocytes 13 % 0-12 Automated blood eosinophils/100 leukocytes 2 % 0-10 Automated blood basophils/100 leukocytes 0 % 0-10 Blood neutrophils automated count (number/volume) 6.4 10*3 1.8-7.8 Blood lymphocytes automated count (number/volume) 1.2 10*3 1.0-4.0 Blood monocytes automated count (number/volume) 1.2 10*3 0.0-1.0 Automated eosinophil count 0.1 10*3/uL 0.0-0.3 Automated blood basophil count (count/volume) 0.0 10*3/uL 0.0-0.1 Encounters ACCT No. Visit Date/Time Discharge Status Pt. Type Provider Facility Loc./Unit Complaint [id number] 02/27/2018 11:51:17 02/27/2018 23:59:59 CLS Outpatient Bishop Nino [id number] 12/23/2017 09:22:46 12/23/2017 23:59:59 CLS Outpatient Alethea Ramsayy [id number] 11/25/2017 09:58:11 11/25/2017 23:59:59 CLS Outpatient Alethea Ramsayy [id number] 11/18/2017 09:56:16 11/18/2017 23:59:59 CLS Outpatient Alethea Ramsayy [id number] 11/11/2017 09:52:07 11/11/2017 23:59:59 CLS Outpatient Alethea Ramsayy [id number] 11/05/2017 10:53:28 11/05/2017 23:59:59 CLS Outpatient Alethea Ramsayy [id number] 10/28/2017 09:58:00 10/28/2017 23:59:59 CLS Outpatient Alethea Ramsayy [id number] 10/28/2017 09:47:31 10/28/2017 23:59:59 CLS Outpatient Alethea Ramsayy [id number] 10/21/2017 09:50:36 10/21/2017 23:59:59 CLS Outpatient Alethea Ramsayy [id number] 10/14/2017 09:44:27 10/14/2017 23:59:59 CLS Outpatient Alethea Ramsay Rebekah [id number] 10/07/2017 15:18:02 10/07/2017 23:59:59 CLS Outpatient Bishop Nino [id number] 10/07/2017 09:57:10 10/07/2017 23:59:59 CLS Outpatient Swearengin, Alethea Welch [id number] 09/30/2017 09:45:44 09/30/2017 23:59:59 CLS Outpatient Swearengin, Alethea Welch [id number] 09/23/2017 10:31:54 09/23/2017 23:59:59 CLS Outpatient Swearengin, Alethea Welch [id number] 09/16/2017 09:52:31 09/16/2017 23:59:59 CLS Outpatient Swearengin, Alethea Welch [id number] 09/09/2017 17:29:47 09/09/2017 23:59:59 CLS Outpatient Swearengin, Alethea Sandersy [id number] 09/09/2017 09:51:10 09/09/2017 23:59:59 CLS Outpatient Swearengin, Alethea Welch [id number] 07/08/2017 17:52:47 07/08/2017 23:59:59 CLS Outpatient Swearengin, Alethea Welch [id number] 07/03/2017 09:49:57 07/03/2017 23:59:59 CLS Outpatient Swearengin, Alethea Welch [id number] 06/27/2017 11:38:46 06/27/2017 23:59:59 CLS Outpatient Swearengin, Alethea Welch [id number] 06/12/2017 15:43:10 06/12/2017 23:59:59 CLS Outpatient Swebrookengin, Alethea Welch [id number] 04/30/2017 13:57:48 04/30/2017 23:59:59 CLS Outpatient Bishop Nino [id number] 04/25/2017 09:36:36 04/25/2017 23:59:59 CLS Outpatient Bishop Nino [id number] 03/19/2017 11:46:04 03/19/2017 23:59:59 CLS Outpatient Donovan Betancur [id number] 06/29/2016 09:38:01 06/29/2016 23:59:59 CLS Outpatient Karen, V S [id number] 04/18/2016 16:37:29 04/18/2016 23:59:59 CLS Outpatient Karen, V S [id number] 03/21/2016 10:34:00 03/21/2016 23:59:59 CLS Outpatient Karen, V S [id number] 04/29/2015 11:07:39 04/29/2015 23:59:59 CLS Outpatient Bishop Nino [id number] 11/11/2013 05:21:47 11/11/2013 23:59:59 CLS Outpatient Bishop Nino [id number] 11/09/2013 10:22:14 11/09/2013 23:59:59 CLS Outpatient Sebastian Keys [id number] 11/03/2013 11:47:08 11/03/2013 23:59:59 CLS Outpatient Sebastian Keys [id number] 12/28/2017 21:54:44 Document Registration [id number] 12/28/2017 21:40:46 Document Registration [id number] 12/23/2017 15:41:41 Document Registration [id number] 11/25/2017 15:52:56 Document Registration [id number] 11/18/2017 16:06:40 Document Registration [id number] 11/11/2017 15:40:56 Document Registration [id number] 11/05/2017 15:19:49 Document Registration [id number] 10/28/2017 15:17:18 Document Registration [id number] 10/21/2017 16:24:24 Document Registration [id number] 10/14/2017 15:18:54 Document Registration [id number] 10/07/2017 15:49:35 Document Registration [id number] 09/30/2017 16:18:38 Document Registration [id number] 09/23/2017 15:31:51 Document Registration [id number] 09/16/2017 15:34:10 Document Registration [id number] 09/13/2017 16:03:50 Document Registration [id number] 09/13/2017 15:58:07 Document Registration [id number] 09/09/2017 18:34:14 Document Registration [id number] 09/09/2017 17:14:27 Document Registration [id number] 09/09/2017 14:54:48 Document Registration [id number] 07/04/2017 07:58:48 Document Registration [id number] 07/03/2017 15:35:23 Document Registration [id number] 07/03/2017 09:33:31 Document Registration [id number] 02/10/2017 22:10:38 Document Registration [id number] 02/10/2017 22:04:24 Document Registration [id number] 03/05/2018 08:18:00 03/18/2018 09:31:00 DIS Outpatient JAVIER MD, PAIZ [facility] ONC [id number] 03/12/2018 09:27:00 03/12/2018 23:59:59 CLS Outpatient MICHAEL REYES APRN [facility] RT LUNG CANCER [id number] 01/06/2018 09:34:00 01/06/2018 23:59:59 CLS Outpatient IZABEL HERRERA MD [facility] RAD LEG WEAKNESS [id number] 01/01/2018 08:22:00 01/01/2018 23:59:59 CLS Outpatient IZABEL HERRERA MD [facility] ONC [id number] 11/27/2017 10:57:00 11/27/2017 23:59:59 CLS Outpatient IZABEL HERRERA MD [facility] RAD LUNG CANCER [id number] 11/08/2017 07:56:00 11/19/2017 00:01:00 DIS Outpatient IZABEL HERRERA MD [facility] ONC [id number] 10/09/2017 12:45:00 10/09/2017 23:59:59 CLS Preadmit IZABEL HERRERA MD [facility] RAD LUNG CA [id number] 10/08/2017 08:49:00 10/08/2017 23:59:59 CLS Outpatient IZABEL HERRERA MD [facility] RAD SMALL CELL LUNG CANCER [id number] 09/09/2017 21:21:00 09/12/2017 11:45:00 DIS Inpatient GUADALUPE PAN MD [facility] 4TH ACUTE PE;LUNG CANCER [id number] 08/29/2017 09:29:00 08/29/2017 14:05:00 DIS Outpatient VIVI GALE DO [facility] SDC SCLC [id number] 08/28/2017 05:40:00 08/28/2017 09:41:00 DIS Outpatient VIVI GALE DO [facility] PREOP SCLC [id number] 03/21/2018 13:41:00 Document Registration [id number] 03/19/2018 08:58:00 PEN Preadmit IZABEL HERRERA MD [facility] RAD SMALL CELL LUNG CANCER [id number] 03/19/2018 07:53:00 ACT Outpatient IZABEL HERRERA MD [facility] ONC
[2018-03-22] MEDS: CEFEPIME 2 GM/NS 50 ML IVPB IV SCH ×4 (09:55→21:22)
--- NOTE | 2018-03-22 10:18 | History & Physical-Hospitalist ---
History of Present Illness HPI/Chief Complaint Pt is a 62yoCM with a PMH of lung cancer on immunotherapy who presented to the ER with CC of cough and left sided chest pain. He reports that his symptoms started a few days ago and continued to worsen. He had some thick sputum but was unable to get it up and started to develop orthopnea. He also had low grade fevers. He denies any hemoptysis. In the ER chest x-ray showed left lower lobe infiltrate. Today he states he is doing well and feeling much better. Cough is improving as well and his breathing is improving. Source: patient Date Seen 03/22/18 Time Seen by a Provider: 10:14 Attending Physician Quiana Ortiz MD PCP No,Local Physician Referring Physician Date of Admission Mar 21, 2018 at 2:30 pm Home Medications & Allergies Home Medications Reviewed patient Home Medication Reconciliation performed by pharmacy medication reconciliations nuclear technician and/or nursing. Patients Allergies have been reviewed. Allergies Allergies Coded Allergies adhesive tape (Verified Allergy, Unknown, 08/28/17) atenolol (Verified Allergy, Unknown, 08/28/17) fish oil (Verified Allergy, Unknown, 08/28/17) pravastatin (Verified Allergy, Unknown, 08/28/17) rosuvastatin (Verified Allergy, Unknown, 08/28/17) simvastatin (Verified Allergy, Unknown, 08/28/17) Past Dbapwmr-Amsumj-Vldids Hx Past Med/Social Hx: Reviewed Nursing Past Med/Soc Hx Patient Social History Marrital Status: Alcohol Use: Denies Use Recreational Drug Use: No Smoking Status: Former Smoker Former Smoker, Quit: Mar 21, 2016 Type Used: Cigarettes Physical Abuse Screen: No Sexual Abuse: No Recent Foreign Travel: No Contact w/other who traveled: No Recent Hopitalizations: Yes (march 2018) Recent Infectious Disease Expo: No Immunizations Up To Date Pediatric: Yes Date of Pneumonia Vaccine: Mar 21, 2015 Seasonal Allergies Seasonal Allergies: No Past Medical History Surgeries: Tonsillectomy Respiratory: Pulmonary Embolism Currently Using CPAP: No Currently Using BIPAP: No Cardiac: Cardiomyopathy Sexually Transmitted Disease: No HIV/AIDS: No Musculoskeletal: Arthritis HEENT: Cataract Loss of Vision: Denies Hearing Impairment: Denies Cancer: Lung Did You Recieve Any Treatments: Yes What Type of Treatment Did You: Chemotherapy, Other Cancer: immunotherapy currently. last chemo january 2018 Psychosocial: Depression History of Blood Disorders: No Adverse Reaction to Blood [place]: No Family History Alcoholism maternal grandfather Arthritis maternal grandfather maternal grandmother Cardiovascular disease maternal grandmother Cataracts maternal grandfather maternal grandmother Completed stroke 19 MOTHER (aunts and uncles) Congenital heart disease 19 MOTHER (runs in the family) Deafness or hearing loss maternal grandmother Hypertension maternal grandmother Myocardial infarction maternal grandmother Neoplasm maternal grandfather (lung cancer and great grandfather) Heart Disease, Cancer Review of Systems Constitutional: fever, weakness EENTM: no symptoms reported Respiratory: cough; No hemoptysis; orthopnea, phlegm, short of breath, wheezing Cardiovascular: chest pain; No edema, No palpitations Gastrointestinal: no symptoms reported Genitourinary: no symptoms reported Musculoskeletal: no symptoms reported Skin: no symptoms reported Psychiatric/Neurological: No Symptoms Reported Physical Exam Physical Exam Vital Signs Vital Signs - First Documented 03/21/18 03/21/18 03/21/18 12:47 16:20 16:25 Temp 97.8 Pulse 89 Resp 20 B/P (MAP) 113/75 (88) Pulse Ox 92 O2 Delivery Room Air O2 Flow Rate 2.00 FiO2 21 Capillary Refill : Less Than 3 Seconds Height, Weight, BMI Height: 6'0.00" Weight: 221lbs. 0.0oz. 100.471037hy; 30.0 BMI Method:Estimated General Appearance: No Apparent Distress, WD/WN HEENT: PERRL/EOMI, Moist Mucous Membranes Neck: Non Tender, Supple Respiratory: No Accessory Muscle Use, No Respiratory Distress, Wheezing Cardiovascular: Regular Rate, Rhythm, No Murmur Gastrointestinal: Normal Bowel Sounds, Non Tender, Soft Extremity: Normal Capillary Refill, No Calf Tenderness Neurologic/Psychiatric: Alert, Oriented x3, Normal Mood/Affect Skin: Normal Color, Warm/Dry Results Results/Procedures Labs Laboratory Tests 03/21/18 14:08 03/22/18 05:35 03/23/18 05:30 Patient resulted labs reviewed. Imaging: Reviewed Imaging Report Assessment/Plan Admission Diagnosis CAP Admission Status: Inpatient Order (span 2 midnights) Reason for Inpatient Admission: Needs IV abx and likely more than two midnight to stablize for DC due to comorbidities Diagnosis/Problems Diagnosis/Problems (1) CAP (community acquired pneumonia) Status: Acute Assessment & Plan: Continue on Cefepime Cultures pending Symptoms improving No leukocytosis- does not meet sepsis criteria Qualifiers: Laterality: left Lung location: lower lobe of lung Qualified Codes: J18.1 - Lobar pneumonia, unspecified organism (2) SCLC (small cell lung carcinoma) Status: Chronic Assessment & Plan: Follows with Dr Bardales On Immunotherapy currently (3) Bilateral pulmonary embolism Status: Acute Assessment & Plan: History- diagnosed this year On Eliquis at baseline (4) Prophylactic measure Assessment & Plan: Eliquis NS at 75ml/hr Reg diet Clinical Quality Measures DVT/VTE Risk/Contraindication: Risk Factor Score Per Nursin RFS Level Per Nursing on Admit: 4+=Very High QUIANA ORTIZ MD Mar 22, 2018 10:18 am
--- OUTSIDE RECORDS SUMMARY | 2018-03-22 12:06 | XMS REPORT | Continuity of Care Document ---
Author Author [facility] Organization [facility] Address Unknown Phone Unavailable Allergies Active Description Code Type Severity Reaction Onset Reported/Identified Relationship to Patient Clinical Status Yes CRESTOR [id number] BRANDNAME N/A FLU LIKE SYMPTOMS Yes CRESTOR 90534870 BRANDNAME N/A NIGHT RHOADES Yes NKDA - NO KNOWN DRUG ALLERGIES [id number] CLASS N/A N/A Yes OMEGA 3 [id number] BRANDNAME N/A FLU LIKE SYMPTOMS Yes OMEGA-3 FATTY ACIDS [id number] DRUG N/A N/A Yes PRAVACHOL [id number] BRANDNAME N/ A FLU LIKE SYMPTOMS Yes PRAVACHOL 57492960 BRANDNAME N/ A NIGHTMARES Yes TENORMIN [id number] BRANDNAME N/ A FLU LIKE SYMPTOMS Yes TENORMIN [id number] BRANDNAME N/ A RASH Yes ZOCOR 15389975 BRANDNAME N/A FLU LIKE SYMPTOMS Yes ZOCOR [id number] BRANDNAME N/A MYOPATHY Yes adhesive tape [id number] Drug Allergy Unknown N/A 08/28/2017 Yes atenolol [id number] Drug Allergy Unknown N/A 08/28/2017 Yes fish oil [id number] Drug Allergy Unknown N/A 08/28/2017 Yes pravastatin [id number] Drug Allergy Unknown N/A 08/28/2017 Yes rosuvastatin [id number] Drug Allergy Unknown N/A 08/28/2017 Yes simvastatin [id number] Drug Allergy Unknown N/A 08/28/2017 Medications There [...] C34.90 [facility]IGNANT [facility]LAS[facility] 08/29/2017 JUD GALE DOTT D Ot Z01.818 ENCOUNTER FOR OTHER PREPROCEDURAL EXAMIN 08/29/2017 JUD GALE DOTT D Ot C34.12 MALIGNANT NEOPLASM OF UPPER LOBE, LEFT B 08/29/2017 JUD GALE DOTT D Ot I42.9 CARDIOMYOPATHY, UNSPECIFIED 08/29/2017 JUD GALE DOTT D Ot K21.9 GASTRO-ESOPHAGEAL REFLUX DISEASE WITHOUT 08/29/2017 JUD GALE DOTT D Ot Z79.899 OTHER CHANGE MANAGEMENT COORDINATOR (CURRENT) DRUG THERAPY 08/29/2017 SHAHLA DERAS VIVI D Ot Z87.891 PERSONAL HISTORY OF NICOTINE DEPENDENCE 08/30/2017 SHAHLA DERAS VIVI D Ot C34.12 MALIGNANT NEOPLASM OF UPPER LOBE, LEFT B 08/30/2017 JUD GALE DOTT D Ot I42.9 CARDIOMYOPATHY, UNSPECIFIED 08/30/2017 JUD GALE DOTT D Ot K21.9 GASTRO-ESOPHAGEAL REFLUX DISEASE WITHOUT 08/30/2017 JUD GALE DOTT D Ot Z79.899 OTHER USP (CURRENT) DRUG THERAPY 08/30/2017 JUD GALE DOTT [...] 09/04/2017 GALEVIVI OBRIEN DO Ot Z79.899 OTHER CHANGE MANAGEMENT COORDINATOR (CURRENT) DRUG THERAPY 09/04/2017 VIVI GALE DO [...] CHEMOTHERAP 11/19/2017 IZABEL HERRERA MD Ot Z79.01 USP (CURRENT) USE OF ANTICOAGULANT 11/19/2017 IZABEL HERRERA MD Ot Z79.899 OTHER CHANGE MANAGEMENT COORDINATOR (CURRENT) DRUG THERAPY 11/19/2017 IZABEL HERRERA MD Ot Z87.891 PERSONAL HISTORY OF NICOTINE DEPENDENCE 11/20/2017 IZABEL HERRERA MD Ot C34.12 MALIGNANT NEOPLASM OF UPPER LOBE, LEFT B 11/20/2017 IZABEL HERRERA MD Ot C77.1 SECONDARY AND UNSP MALIGNANT NEOPLASM OF 11/20/2017 IZABEL HERRERA MD Ot C78.7 SECONDARY MALIG NEOPLASM OF LIVER AND IN 11/20/2017 IZABEL HERRERA MD Ot C79.51 SECONDARY MALIGNANT NEOPLASM OF BONE 11/20/2017 IZABEL HERRERA MD Ot I26.99 OTHER PULMONARY EMBOLISM WITHOUT ACUTE C 11/20/2017 IZABEL HERRERA MD Ot R13.10 DYSPHAGIA, UNSPECIFIED 11/20/2017 IZABEL HERRERA MD Ot Z51.11 ENCOUNTER FOR ANTINEOPLASTIC CHEMOTHERAP 11/20/2017 IZABEL HERRERA MD Ot Z79.01 CHANGE MANAGEMENT COORDINATOR (CURRENT) USE OF ANTICOAGULANT 11/20/2017 IZABEL HERRERA MD Ot Z79.899 OTHER CHANGE MANAGEMENT COORDINATOR (CURRENT) DRUG THERAPY 11/20/2017 IZABEL HERRERA MD [...] CHEMOTHERAP 11/25/2017 IZABEL HERRERA MD Ot Z79.01 USP (CURRENT) USE OF ANTICOAGULANT 11/25/2017 IZABEL HERRERA MD Ot Z79.899 OTHER USP (CURRENT) DRUG THERAPY 11/25/2017 IZABEL HERRERA MD Ot Z87.891 PERSONAL HISTORY OF NICOTINE DEPENDENCE 11/26/2017 IZABEL HERRERA MD Ot C34.12 MALIGNANT NEOPLASM OF UPPER LOBE, LEFT B 11/26/2017 IZABEL HERRERA MD Ot R13.10 DYSPHAGIA, UNSPECIFIED 11/26/2017 IZABEL HERRERA MD Ot R22.1 LOCALIZED SWELLING, MASS AND LUMP, NECK 11/26/2017 IAZBEL HERRERA MD Ot Z87.891 PERSONAL HISTORY OF [...] PAIN 11/28/2017 IZABEL HERRERA MD Ot Z79.01 USP (CURRENT) USE OF ANTICOAGULANT 11/28/2017 IZABEL HERRERA MD Ot Z79.899 OTHER CHANGE MANAGEMENT COORDINATOR (CURRENT) DRUG THERAPY 11/28/2017 IZABEL HERRERA MD [...] PAIN 11/28/2017 IZABEL HERRERA MD Ot Z79.01 CHANGE MANAGEMENT COORDINATOR (CURRENT) USE OF ANTICOAGULANT 11/28/2017 IZABEL HERRERA MD Ot Z79.899 OTHER CHANGE MANAGEMENT COORDINATOR (CURRENT) DRUG THERAPY 11/28/2017 IZABEL HERRERA MD [...] PAIN 12/25/2017 IZABEL HERRERA MD Ot Z79.01 USP (CURRENT) USE OF ANTICOAGULANT 12/25/2017 IZABEL HERRERA MD, Ot Z79.899 OTHER USP (CURRENT) DRUG THERAPY 12/25/2017 IZABEL HERRERA MD, [...] SECONDARY MALIGNANT NEOPLASM OF RIGHT SOUTH 01/08/2018 IZABEL HERRERA MD Ot C78.02 SECONDARY MALIGNANT [...] CHEMOTHERAP 01/08/2018 IZABEL HERRERA MD Ot Z79.01 USP (CURRENT) USE OF ANTICOAGULANT 01/08/2018 IZABEL HERRERA MD Ot Z79.899 OTHER USP (CURRENT) DRUG THERAPY 01/08/2018 IZABEL HERRERA MD [...] CHEMOTHERAP 02/05/2018 IZABEL HERRERA MD Ot Z79.01 USP (CURRENT) USE OF ANTICOAGULANT 02/05/2018 IZABEL HERRERA MD Ot Z79.899 OTHER CHANGE MANAGEMENT COORDINATOR (CURRENT) DRUG THERAPY 02/05/2018 IZABEL HERRERA MD [...] CHEMOTHERAP 02/27/2018 IZABEL HERRERA MD Ot Z79.01 USP (CURRENT) USE OF ANTICOAGULANT 02/27/2018 IZABEL HERRERA MD Ot Z79.899 OTHER CHANGE MANAGEMENT COORDINATOR (CURRENT) DRUG THERAPY 02/27/2018 IZABEL HERRERA MD [...] R59.1 GENERALIZED ENLARGED LYMPH NODES 03/06/2018 IZABEL HERRERA MD Ot M47.812 SPONDYLOSIS W/O [...] CHEMOTHERAP 03/06/2018 IZABEL HERRERA MD Ot Z79.01 CHANGE MANAGEMENT COORDINATOR (CURRENT) USE OF ANTICOAGULANT 03/06/2018 IZABEL HERRERA MD Ot Z79.899 OTHER USP (CURRENT) DRUG THERAPY 03/06/2018 IZABEL HERRERA MD Ot Z87.891 PERSONAL HISTORY OF NICOTINE DEPENDENCE 03/18/2018 IZABEL HERRERA MD Ot C34.12 MALIGNANT NEOPLASM OF UPPER LOBE, LEFT B 03/18/2018 IZABEL HERRERA MD Ot C77.1 SECONDARY AND [...] CHEMOTHERAP 03/18/2018 IZABEL HERRERA MD, Ot Z79.01 USP (CURRENT) USE OF ANTICOAGULANT 03/18/2018 IZABEL HERRERA MD, Ot Z79.899 OTHER USP (CURRENT) DRUG THERAPY 03/18/2018 IZABEL HERRERA MD, Ot Z87.891 PERSONAL HISTORY OF NICOTINE DEPENDENCE 03/18/2018 IZABEL HERRERA MD, Ot C34.92 MALIGNANT NEOPLASM OF UNSP PART OF LEFT 03/18/2018 MICHAEL REYES APRN Ot C34.90 MALIGNANT NEOPLASM OF UNSP PART OF UNSP 03/18/2018 MICHAEL RYEES APRN Ot G47.34 IDIO SLEEP RELATED NONOBSTRUCTIVE ALVEOL 03/18/2018 MICHAEL REYES APRN Ot Z79.01 CHANGE MANAGEMENT COORDINATOR (CURRENT) USE OF ANTICOAGULANT 03/18/2018 MICHAEL REYES [...] CHEMOTHERAP 03/18/2018 IZABEL HERRERA MD Ot Z79.01 CHANGE MANAGEMENT COORDINATOR (CURRENT) USE OF ANTICOAGULANT 03/18/2018 IZABEL HERRERA MD, Ot Z79.899 OTHER CHANGE MANAGEMENT COORDINATOR (CURRENT) DRUG THERAPY 03/18/2018 IZABEL HERRERA MD, [...] Status Pt. Type Provider Facility Loc./Unit Complaint [id number] 02/27/2018 11:51:17 02/27/2018 23:59:59 CLS Outpatient Bishop Nino [id number] 12/23/2017 09:22:46 12/23/2017 23:59:59 CLS Outpatient Alethea Ramsayy [id number] 11/25/2017 09:58:11 11/25/2017 23:59:59 CLS Outpatient Alethea Ramsayy [id number] 11/18/2017 09:56:16 11/18/2017 23:59:59 CLS Outpatient Alethea Ramsayy [id number] 11/11/2017 09:52:07 11/11/2017 23:59:59 CLS Outpatient Alethea Ramsayy [id number] 11/05/2017 10:53:28 11/05/2017 23:59:59 CLS Outpatient Alethea Ramsayy [id number] 10/28/2017 09:58:00 10/28/2017 23:59:59 CLS Outpatient Alethea Ramsayy [id number] 10/28/2017 09:47:31 10/28/2017 23:59:59 CLS Outpatient Alethea Ramsayy [id number] 10/21/2017 09:50:36 10/21/2017 23:59:59 CLS Outpatient Alethea Ramsayy [id number] 10/14/2017 09:44:27 10/14/2017 23:59:59 CLS Outpatient Alethea Ramsay Rebekah [id number] 10/07/2017 15:18:02 10/07/2017 23:59:59 CLS Outpatient Bishop Nino [id number] 10/07/2017 09:57:10 10/07/2017 23:59:59 CLS Outpatient Swearengin, Alethea Welch [id number] 09/30/2017 09:45:44 09/30/2017 23:59:59 CLS Outpatient Swearengin, Alethea Welch [id number] 09/23/2017 10:31:54 09/23/2017 23:59:59 CLS Outpatient Swearengin, Alethea Welch [id number] 09/16/2017 09:52:31 09/16/2017 23:59:59 CLS Outpatient Swearengin, Alethea Welch [id number] 09/09/2017 17:29:47 09/09/2017 23:59:59 CLS Outpatient Swearengin, Alethea Sandersy [id number] 09/09/2017 09:51:10 09/09/2017 23:59:59 CLS Outpatient Swearengin, Alethea Welch [id number] 07/08/2017 17:52:47 07/08/2017 23:59:59 CLS Outpatient Swearengin, Alethea Welch [id number] 07/03/2017 09:49:57 07/03/2017 23:59:59 CLS Outpatient Swearengin, Alethea Welch [id number] 06/27/2017 11:38:46 06/27/2017 23:59:59 CLS Outpatient Swearengin, Alethea Welch [id number] 06/12/2017 15:43:10 06/12/2017 23:59:59 CLS Outpatient Swebrookengin, Alethea Welch [id number] 04/30/2017 13:57:48 04/30/2017 23:59:59 CLS Outpatient Bishop Nino [id number] 04/25/2017 09:36:36 04/25/2017 23:59:59 CLS Outpatient Bishop Nino [id number] 03/19/2017 11:46:04 03/19/2017 23:59:59 CLS Outpatient Donovan Betancur [id number] 06/29/2016 09:38:01 06/29/2016 23:59:59 CLS Outpatient Karen, V S [id number] 04/18/2016 16:37:29 04/18/2016 23:59:59 CLS Outpatient Karen, V S [id number] 03/21/2016 10:34:00 03/21/2016 23:59:59 CLS Outpatient Karen, V S [id number] 04/29/2015 11:07:39 04/29/2015 23:59:59 CLS Outpatient Bishop Nino [id number] 11/11/2013 05:21:47 11/11/2013 23:59:59 CLS Outpatient Bishop Nino [id number] 11/09/2013 10:22:14 11/09/2013 23:59:59 CLS Outpatient Sebastian Keys [id number] 11/03/2013 11:47:08 11/03/2013 23:59:59 CLS Outpatient Sebastian Keys [id number] 12/28/2017 21:54:44 Document Registration [id number] 12/28/2017 21:40:46 Document Registration [id number] 12/23/2017 15:41:41 Document Registration [id number] 11/25/2017 15:52:56 Document Registration [id number] 11/18/2017 16:06:40 Document Registration [id number] 11/11/2017 15:40:56 Document Registration [id number] 11/05/2017 15:19:49 Document Registration [id number] 10/28/2017 15:17:18 Document Registration [id number] 10/21/2017 16:24:24 Document Registration [id number] 10/14/2017 15:18:54 Document Registration [id number] 10/07/2017 15:49:35 Document Registration [id number] 09/30/2017 16:18:38 Document Registration [id number] 09/23/2017 15:31:51 Document Registration [id number] 09/16/2017 15:34:10 Document Registration [id number] 09/13/2017 16:03:50 Document Registration [id number] 09/13/2017 15:58:07 Document Registration [id number] 09/09/2017 18:34:14 Document Registration [id number] 09/09/2017 17:14:27 Document Registration [id number] 09/09/2017 14:54:48 Document Registration [id number] 07/04/2017 07:58:48 Document Registration [id number] 07/03/2017 15:35:23 Document Registration [id number] 07/03/2017 09:33:31 Document Registration [id number] 02/10/2017 22:10:38 Document Registration [id number] 02/10/2017 22:04:24 Document Registration [id number] 03/19/2018 08:58:00 03/19/2018 23:59:59 CLS Preadmit IZABEL HERRERA MD [facility] RAD SMALL CELL LUNG CANCER [id number] 03/19/2018 07:53:00 03/19/2018 23:59:59 CLS Outpatient IZABEL HERRERA MD [facility] ONC [id number] 03/05/2018 08:18:00 03/18/2018 09:31:00 DIS Outpatient IZABEL HERRERA MD [facility] ONC [id number] 03/12/2018 09:27:00 03/12/2018 23:59:59 CLS Outpatient MICHAEL REYES APRN [facility] RT LUNG CANCER [id number] 01/06/2018 09:34:00 01/06/2018 23:59:59 CLS Outpatient IZABEL HERRERA MD [facility] RAD LEG WEAKNESS [id number] 01/01/2018 08:22:00 01/01/2018 23:59:59 CLS Outpatient IZABEL HERRERA MD [facility] ONC [id number] 11/27/2017 10:57:00 11/27/2017 23:59:59 CLS Outpatient IZABEL HERRERA MD [facility] RAD LUNG CANCER [id number] 11/08/2017 07:56:00 11/19/2017 00:01:00 DIS Outpatient IZABEL HERRERA MD [facility] ONC [id number] 10/09/2017 12:45:00 10/09/2017 23:59:59 CLS Preadmit IZABEL HERRERA MD [facility] RAD LUNG CA [id number] 10/08/2017 08:49:00 10/08/2017 23:59:59 CLS Outpatient IZABEL HERRERA MD [facility] RAD SMALL CELL LUNG CANCER [id number] 09/09/2017 21:21:00 09/12/2017 11:45:00 DIS Inpatient GUADALUPE PAN MD [facility] 4TH ACUTE PE;LUNG CANCER [id number] 08/29/2017 09:29:00 08/29/2017 14:05:00 DIS Outpatient VIVI GALE DO [facility] SDC SCLC [id number] 08/28/2017 05:40:00 08/28/2017 09:41:00 DIS Outpatient VIVI GALE DO [facility] PREOP SCLC [id number] 03/21/2018 13:41:00 Document Registration
[2018-03-23] MEDS: NS IV 1000 ML 1,000 ML IV SCH ×2 (01:40→08:28)
[2018-03-23] MEDS: RT-ALBUTEROL/IPRATROPIUM 3 ML (DUONEB) VIAL INH SCH ×6 (01:44→22:30)
[2018-03-23 04:15] VITALS: BP 116/63
[2018-03-23] MEDS: morphine INJ 10 MG/ML 1ML (SYR OR VIAL) IV PRN (05:25)
[2018-03-23] MEDS: HYDROcodone/APAP 5 MG/325 MG (LORTAB) TAB PO PRN (05:26)
[2018-03-23 05:40] LABS: BASOPHILS % (AUTO) 0 % (0-10); EOSINOPHILS # (AUTO) 0.2 10^3/uL (0.0-0.3); EOSINOPHILS % (AUTO) 2 % (0-10); HEMATOCRIT 41 % (40-54); HEMOGLOBIN 14.1 G/DL (13.3-17.7); LYMPHOCYTES % (AUTO) 11 % (12-44); MEAN CORPUSCULAR HEMOGLOBIN 32 PG (25-34); MEAN CORPUSCULAR HGB CONC 35 G/DL (32-36); MEAN CORPUSCULAR VOLUME 91 FL (80-99); MEAN PLATELET VOLUME 8.3 FL (7.4-10.4); MONOCYTES # (AUTO) 1.2 X 10^3 (0.0-1.0); MONOCYTES % (AUTO) 13 % (0-12); NEUTROPHILS # (AUTO) 6.8 X 10^3 (1.8-7.8); NEUTROPHILS % (AUTO) 74 % (42-75); PLATELET COUNT 203 10^3/uL (130-400); RED BLOOD COUNT 4.46 10^6/uL (4.35-5.85); RED CELL DISTRIBUTION WIDTH 13.4 % (10.0-14.5); WHITE BLOOD COUNT 9.1 10^3/uL (4.3-11.0)
[2018-03-23 05:54] LABS: BUN/CREATININE RATIO 10; CALCIUM 9.1 MG/DL (8.5-10.1); CARBON DIOXIDE 21 MMOL/L (21-32); CHLORIDE 103 MMOL/L (98-107); CREATININE SERUM 0.77 MG/DL (0.60-1.30); GFR ESTIMATED > 60; GLUCOSE 100 MG/DL (70-105); SODIUM 135 MMOL/L (135-145)
[2018-03-23 08:14] VITALS: BP 120/69
--- NOTE | 2018-03-23 09:09 | Progress Note-Hospitalist ---
Subjective HPI/CC On Admission Date Seen by Provider: Mar 23, 2018 Time Seen by Provider: 09:04 Pt is a 62yoCM with a PMH of lung cancer on immunotherapy who presented to the ER with CC of cough and left sided chest pain. He reports that his symptoms started a few days ago and continued to worsen. He had some thick sputum but was unable to get it up and started to develop orthopnea. He also had low grade fevers. He denies any hemoptysis. In the ER chest x-ray showed left lower lobe infiltrate. Today he states he is doing well and feeling much better. Cough is improving as well and his breathing is improving. Subjective/Events-last exam Pt reports feeling much pain. Pain improved. No other concerns. On 4lpm with sats dropping still at times and normally on 2-3lpm at home. Focused Exam Lactate Level 03/21/18 15:24: Lactic Acid Level 1.46 Objective Exam Vital Signs Vital Signs Date Time Temp Pulse Resp B/P (MAP) Pulse Ox O2 Delivery O2 Flow Rate FiO2 03/23/18 08:14 98.9 95 20 120/69 (86) 94 Nasal Cannula 4.00 03/21/18 16:20 21 Capillary Refill : Less Than 3 Seconds General Appearance: No Apparent Distress, WD/WN Respiratory: No Accessory Muscle Use, No Respiratory Distress, Rhonci, Wheezing Cardiovascular: Regular Rate, Rhythm, No Murmur Gastrointestinal: Normal Bowel Sounds, Non Tender, Soft Extremity: No Calf Tenderness, No Pedal Edema Neurologic/Psychiatric: Alert, Oriented x3 Results/Procedures Lab Laboratory Tests 03/23/18 05:30 Patient resulted labs reviewed. Imaging: Reviewed Imaging Report Assessment/Plan Assessment and Plan Assess & Plan/Chief Complaint CAP Diagnosis/Problems Diagnosis/Problems (1) CAP (community acquired pneumonia) Status: Acute Assessment & Plan: Continue on Cefepime Cultures NGTD Sputum culture ordered Symptoms improving No leukocytosis- does not meet sepsis criteria Qualifiers: Laterality: left Lung location: lower lobe of lung Qualified Codes: J18.1 - Lobar pneumonia, unspecified organism (2) SCLC (small cell lung carcinoma) Status: Chronic Assessment & Plan: Per oncologynotes metastatic to bilateral lungs, mediastinum , tangela and liver Follows with Dr Bardales On palliative Immunotherapy currently (3) Bilateral pulmonary embolism Status: Acute Assessment & Plan: History- diagnosed this year On Eliquis at baseline (4) Prophylactic measure Assessment & Plan: Eliquis Saline lock Reg diet Clinical Quality Measures DVT/VTE Risk/Contraindication: Risk Factor Score Per Nursin RFS Level Per Nursing on Admit: 4+=Very High QUIANA ACUNA MD Mar 23, 2018 9:09 am
[2018-03-23] MEDS ORDERED: NON-FORMULARY MEDICATION 1 EA EA (Carvedilol (Coreg) 3.125 MG) PO PRN (09:15)
[2018-03-23] MEDS ORDERED: CARVEDILOL 3.125 MG (COREG) TABLET PO PRN (09:15)
[2018-03-23] MEDS ORDERED: NAPROXEN 250 MG (NAPROSYN) TABLET PO PRN (09:15)
[2018-03-23] MEDS ORDERED: NON-FORMULARY MEDICATION 1 EA EA (Morphine Sulfate 15 MG) PO PRN (09:15)
[2018-03-23] MEDS ORDERED: morphine IMMEDIATE RELEASE 15 MG TABLET PO PRN (09:15)
[2018-03-23] MEDS ORDERED: NON-FORMULARY MEDICATION 1 EA EA (Naproxen 500 MG) PO PRN (09:15)
[2018-03-23] MEDS: APIXABAN 5 MG (ELIQUIS) TABLET PO SCH ×2 (10:03→20:56)
[2018-03-23] MEDS: buPROPion SR 100 MG (WELLBUTRIN SR) TAB PO SCH ×2 (10:03→16:27)
[2018-03-23] MEDS: CEFEPIME 2 GM/NS 50 ML IVPB IV SCH ×4 (10:03→21:57)
[2018-03-23 12:00] VITALS: BP 118/79
[2018-03-23] MEDS ORDERED: ONDANSETRON 4 MG/2 ML (SDV) Z0FRAN ONE (14:50)
[2018-03-23] MEDS ORDERED: POLYETHYLENE GLYCOL 17 GM (MIRALAX) PACK ONE (14:57)
[2018-03-23] MEDS ORDERED: POLYETHYLENE GLYCOL 17 GM (MIRALAX) PACK PO NR (15:00)
[2018-03-23 15:13] VITALS: BP 113/63
[2018-03-23] MEDS ORDERED: buPROPion SR 100 MG (WELLBUTRIN SR) TAB PO SCH (17:00)
[2018-03-23] MEDS: RT-ADVAIR HFA 115/21 MCG PER PUFF IH SCH (19:00)
[2018-03-23 19:35] VITALS: BP 118/68
[2018-03-23] MEDS ORDERED: NON-FORMULARY MEDICATION 1 EA EA (Orphenadrine Citrate 100 MG) PO SCH (21:00)
[2018-03-23] MEDS ORDERED: NON-FORMULARY MEDICATION 1 EA EA (Budesonide/Formoterol Fumarate (Symbicort 160-4.5 Mcg In INH SCH (21:00)
[2018-03-23] MEDS ORDERED: NON-FORMULARY MEDICATION 1 EA EA (Bupropion HCl (Bupropion HCl Sr) 100 MG) PO SCH (21:00)
[2018-03-24 00:36] VITALS: BP 123/73
[2018-03-24] MEDS: RT-ALBUTEROL/IPRATROPIUM 3 ML (DUONEB) VIAL INH SCH ×3 (03:56→11:15)
[2018-03-24 03:59] VITALS: BP 111/70
[2018-03-24] MEDS: HYDROcodone/APAP 5 MG/325 MG (LORTAB) TAB PO PRN (05:07)
[2018-03-24] MEDS: morphine INJ 10 MG/ML 1ML (SYR OR VIAL) IV PRN (05:08)
[2018-03-24 05:40] LABS: BASOPHILS % (AUTO) 0 % (0-10); EOSINOPHILS # (AUTO) 0.2 10^3/uL (0.0-0.3); EOSINOPHILS % (AUTO) 2 % (0-10); HEMATOCRIT 38 % (40-54); HEMOGLOBIN 13.6 G/DL (13.3-17.7); LYMPHOCYTES # (AUTO) 0.9 X 10^3 (1.0-4.0); LYMPHOCYTES % (AUTO) 10 % (12-44); MEAN CORPUSCULAR HEMOGLOBIN 32 PG (25-34); MEAN CORPUSCULAR HGB CONC 36 G/DL (32-36); MEAN CORPUSCULAR VOLUME 89 FL (80-99); MEAN PLATELET VOLUME 8.3 FL (7.4-10.4); MONOCYTES % (AUTO) 12 % (0-12); NEUTROPHILS # (AUTO) 6.9 X 10^3 (1.8-7.8); NEUTROPHILS % (AUTO) 77 % (42-75); PLATELET COUNT 202 10^3/uL (130-400); RED BLOOD COUNT 4.27 10^6/uL (4.35-5.85); RED CELL DISTRIBUTION WIDTH 13.1 % (10.0-14.5)
[2018-03-24 05:54] LABS: BUN/CREATININE RATIO 11; CALCIUM 9.2 MG/DL (8.5-10.1); CARBON DIOXIDE 20 MMOL/L (21-32); CHLORIDE 101 MMOL/L (98-107); CREATININE SERUM 0.73 MG/DL (0.60-1.30); GFR ESTIMATED > 60; GLUCOSE 99 MG/DL (70-105); POTASSIUM 4.3 MMOL/L (3.6-5.0); SODIUM 135 MMOL/L (135-145)
[2018-03-24] MEDS: buPROPion SR 100 MG (WELLBUTRIN SR) TAB PO SCH (06:27)
[2018-03-24] MEDS: RT-ADVAIR HFA 115/21 MCG PER PUFF IH SCH (06:32)
[2018-03-24 07:44] VITALS: BP 122/64
[2018-03-24] MEDS ORDERED: POLYETHYLENE GLYCOL 17 GM (MIRALAX) PACK PO SCH (09:00)
[2018-03-24] MEDS: APIXABAN 5 MG (ELIQUIS) TABLET PO SCH (09:23)
[2018-03-24] MEDS: CEFEPIME 2 GM/NS 50 ML IVPB IV SCH ×2 (09:26)
--- NOTE | 2018-03-24 10:39 | Progress Note-Hospitalist ---
Progress Note Progress Notes/Assess & Plan Date Seen 03/24/18 Time Seen by Provider: 10:33 Assessment & Plan The patient is a 62-year-old white male whom I admitted from the emergency room on 03/21. He has advanced small cell carcinoma lung. He had been receiving chemotherapy but had progression of disease and is the now doing immunotherapy. He is seen by Dr. Bardales at the cancer center. He is next to have treatment in 2 weeks. He has been afebrile and is feeling much better since on antibiotic therapy. He has required O2 at 5 L/m as compared to his usual of 2 L at home. Physical exam: He is much brighter and conversant today. Lungs show transmitted sounds from the throat bilaterally. There is dullness to percussion in the left base. CV is regular. Extremities show no pedal edema. Impression: Left lower lobe pneumonia. 2. small cell carcinoma lung, advanced stage. Plan: Oral antibiotics for 1 week. He is to have his next chemotherapy in 2 weeks. They understand that he was to have a repeat CT of the chest before the treatment. [facility]. See discharge sequence for routines and medications. Cosleep Focused Exam Lactate Level 03/21/18 15:24: Lactic Acid Level 1.46 GUADALUPE PAN MD Mar 24, 2018 10:38
[2018-03-24] MEDS ORDERED: CEFD300C3 PO (10:45)
--- NOTE | 2018-03-24 10:49 | Discharge Instructions ---
Discharge Instructions Patient Instructions Patient Instructions: (Your outpatient dosing of antibiotic this evening. Increase your O2 flow by concentrator to 5 L. The cancer center will confirm your appointment date and your outpatient CT scan of the chest. Return to The Hospital For: Declining condition Activity & Diet Discharge Diet: No Restrictions, Regular Diet Activity as Tolerated: Yes GUADALUPE PAN MD Mar 24, 2018 10:49
[2018-03-24 12:05] VITALS: BP 124/75
[2018-03-24] MEDS ORDERED: LORA-404 PO (12:12)
[2018-03-24 12:20] VITALS: BP 124/75
== END 2018-03-24 12:20 | disposition home or self-care (01) | DRG 194 ==
LOC: EDUNIT# 12:45 → ER 12:46 → 4TH 14:30
PROVIDERS: ADMIT Family Medicine; ATTEND Family Medicine
DX: J18.1 Lobar pneumonia, unspecified organism (principal); Z86.711 Personal history of pulmonary embolism; C34.32 Malignant neoplasm of lower lobe, left bronchus or lung; C78.01 Secondary malignant neoplasm of right lung; C78.02 Secondary malignant neoplasm of left lung; C78.1 Secondary malignant neoplasm of mediastinum; C78.7 Secondary malignant neoplasm of liver and intrahepatic bile duct; C79.51 Secondary malignant neoplasm of bone; Z66 Do not resuscitate; I42.9 Cardiomyopathy, unspecified; M19.91 Primary osteoarthritis, unspecified site; F32.9 Major depressive disorder, single episode, unspecified; Z79.899 Other long term (current) drug therapy; Z87.891 Personal history of nicotine dependence; Z79.01 Long term (current) use of anticoagulants; Z92.21 Personal history of antineoplastic chemotherapy
CPT/HCPCS: 36415; 71045; 80048; 80053; 83605; 84484; 85025; 87040; 94640; 94664; 94760; 96374; 96375

== ENCOUNTER → 2018-03-27 | Outpatient (CLI) | payer BC, MEDICARE ==
[~2018-03-27] MED LIST changes: +ALBU18HF2 INH; +AZIT250T12 PO; +BUDE10.2 INH; +CEFD300C3 PO; +CHOL5000 PO; +IPRA3AMP31 NEB; +LORA-404 PO; +NAPR-915 PO; +PROC5TAB9 PO; +ZOLP5TAB7 PO
--- NOTE | 2018-03-27 12:33 | Diagnostic Imaging Report ---
PROCEDURE: CT abdomen and pelvis with and without contrast. TECHNIQUE: Precontrast acquisitions were acquired through the abdomen and pelvis. Multiple contiguous axial images were obtained through the abdomen and pelvis after the administration of intravenous contrast. INDICATION: Left-sided abdominal pain and chest pain. No prior CT abdomen and pelvis studies are available for comparison. Left-sided pleural effusion. Left basilar infiltrate is noted. The liver does contain some ill-defined low-density masses throughout the right and left lobes. These do not appear to represent cysts and appear to be solid. Largest is in the anterior right lobe measuring approximately 2.4 cm. Features are concerning for hepatic metastatic disease. The gallbladder is unremarkable. The pancreas and spleen are unremarkable. No adrenal mass is identified. Kidneys are unremarkable. The aorta is non-aneurysmal. No central, retroperitoneal or mesenteric lymphadenopathy is seen. The small and large bowel loops are normal caliber. There is no ascites. The bladder is unremarkable. No pelvic lymphadenopathy is identified. IMPRESSION: 1. Multiple hepatic masses suggestive of hepatic metastatic disease. 2. No abdominal or pelvic lymphadenopathy is identified. Dictated by: Dictated on workstation # [id number]
== END ==
LOC: RAD 11:03
PROVIDERS: ATTEND Internal Medicine Hematology & Oncology
DX: C34.12 Malignant neoplasm of upper lobe, left bronchus or lung (principal); C78.7 Secondary malignant neoplasm of liver and intrahepatic bile duct; C79.51 Secondary malignant neoplasm of bone; R16.0 Hepatomegaly, not elsewhere classified
CPT/HCPCS: 74178

== ENCOUNTER → 2018-03-27 | Outpatient (CLI) | payer BC, MEDICARE ==
[~2018-03-27] MED LIST changes: +CATHETER FLUSH 10 ML SYR IV PRN; +IOHEXOL 350 MG/ML 150 ML (OMNIPAQUE 350) VIAL IV ONE; +NS 250 ML (IVPB) BAG IV ONE; +RECEIVED CONTRAST (Hold Metformin) IV SCH
--- NOTE | 2018-03-27 12:03 | Diagnostic Imaging Report ---
PROCEDURE: CT angiography of the chest with contrast. TECHNIQUE: Multiple contiguous axial images were obtained through the chest after uneventful bolus administration of intravenous contrast. 2D reconstructed CTA MIP acquisitions were also performed. INDICATION: Hemoptysis for 1-2 weeks as well as left lateral chest and abdominal pain. FINDINGS: A right chest wall port is in place. Bulky mediastinal lymphadenopathy is identified. Abnormal soft tissue masses infiltrate in middle mediastinum including the AP window, prevascular space, as well as anterior mediastinum anterior to the ascending aorta and arch. There is also marked abnormal soft tissue fullness in the subcarinal regions. Abnormal soft tissue masses in the right and left tangela are seen. Soft tissue masses do narrow the left main pulmonary artery, but no definite filling defects are seen within central, lobar, or segmental branches. The thoracic aorta is without evidence of dissection. A right paratracheal mass measures 3.4 cm AP x 3.4 cm transverse. Subcarinal mass is approximately 7.4 x 3.8 cm. Left hilar masses are inseparable from parenchymal consolidation/mass involving the left lower lobe. Extensive infiltrate throughout the right upper lobe is seen. There is also fairly extensive interstitial and airspace infiltrate throughout the posterior left upper lobe. There is an area of mass-like nodularity along the major fissure on the left measuring 19 mm. The left mainstem bronchus as well as left upper lobe and left lower lobe bronchi are markedly narrowed by the soft tissue masses. No pericardial fluid is seen. There is a uvesv-[id number] left pleural effusion. A nodule in the lateral portion of the right middle lobe is noted measuring 9 mm. IMPRESSION: 1. No definite evidence of pulmonary embolism or thoracic aortic dissection. There are bulky mediastinal and hilar masses, as described, significantly narrowing the bronchi, particularly the left upper lobe and left lower lobe bronchi and encasing the left main pulmonary artery. Left hilar mass is inseparable from masses involving the left lower lobe. There is extensive bilateral infiltrate present. Features are consistent with primary lung neoplasm and metastatic disease. Infiltrates present bilaterally may be owing to postobstructive pneumonitis, although lymphangitic spread of neoplasm would be an additional consideration. Dictated by: Dictated on workstation # [id number]
== END ==
LOC: RAD 10:50
PROVIDERS: ATTEND Nurse Practitioner Family
DX: C34.90 Malignant neoplasm of unspecified part of unspecified bronchus or lung (principal); J98.59 Other diseases of mediastinum, not elsewhere classified; R91.8 Other nonspecific abnormal finding of lung field
CPT/HCPCS: 71275